=== PATIENT | male | born 1980 | race Two or more races ===

== ENCOUNTER 2017-03-17 19:18 | Inpatient (IN) | payer OTHER ==
--- NOTE | 2017-03-17 20:25 | PDOC ---
Rapid Medical Evaluation Chief Complaint: Pain Time Seen by Provider: 03/17/17 20:17 Medical Evaluation: Allergies Allergy/AdvReac Type Severity Reaction Status Date / Time No Known Allergies Allergy Verified 03/17/17 20:21 03/17/17 20:22 I have performed a brief-in person evaluation of this patient. The patient presents with a chief complaint of: right foot swelling/pain x3d pt states in kiswahili "he's supposed to be a diabetic but was never prescribed any DM meds. last physical x13 years ago Sent by PMD: Dr. Brijesh Mathew [phone] Cellulitis Accucheck in pmd's office was [phone] Pertinent physical exam findings: right foot +swelling +erythema decreased R.O.M. 2+pedal pulse I have ordered the following: CBC/CMP/UA/Duplex RLE The patient will proceed to the ED for further evaluation.
[2017-03-17] MEDS ORDERED: SODIUM CHLORIDE 1,000 ML IV STA (20:28)
--- NOTE | 2017-03-17 20:28 | PDOC ---
History of Present Illness - General Chief Complaint: Pain Stated Complaint: PCP SENT Time Seen by Provider: 03/17/17 20:17 History Source: Patient Exam Limitations: No Limitations - History of Present Illness Initial Comments: 03/17/17 20:27 36-year-old male with no known medical history because he hasn't been to a physician for 15 years. Patient states 15 years ago he was informed that he is a diabetic but was never given any medication or further instructions. Patient presents to the emergency department today complaining of right dorsal foot pain described as 8/10 sharp intermittent constant discomfort with subjective fever and chills 3 days without nausea/vomiting, chest pain, shortness of breath, extremity numbness or tingling sensation. Patient was seen at his family members PMD today and was informed to come to the emergency department for right foot cellulitis, possible gangrenous. Past History - Past Medical History Allergies/Adverse Reactions: Allergies Allergy/AdvReac Type Severity Reaction Status Date / Time No Known Allergies Allergy Verified 03/17/17 20:21 COPD: No - Suicide/Smoking/Psychosocial Hx Smoking History: Never smoked Have you smoked in the past 12 months: No Information on smoking cessation initiated: No Hx Alcohol Use: No Drug/Substance Use Hx: No Substance Use Type: None Review of Systems - Review of Systems Able to Perform ROS?: Yes Comments:: 03/17/17 22:11 CONSTITUTIONAL: Absent: fever, chills, diaphoresis, generalized weakness, malaise, loss of appetite HEENT: Absent: rhinorrhea, nasal congestion, throat pain, throat swelling, difficulty swallowing, mouth swelling, ear pain, eye pain, visual Changes CARDIOVASCULAR: Absent: chest pain, loss of consciousness, palpitations, irregular heart rate, peripheral edema RESPIRATORY: Absent: cough, shortness of breath, dyspnea with exertion, orthopnea, wheezing, stridor, hemoptysis GASTROINTESTINAL: Absent: abdominal pain, abdominal distension, nausea, vomiting, diarrhea, constipation, melena, hematochezia GENITOURINARY: Absent: dysuria, frequency, urgency, hesitancy, hematuria, flank pain, genital pain MUSCULOSKELETAL: Absent: myalgia, arthralgia, joint swelling SKIN: Absent: rash, itching, pallor HEMATOLOGIC/IMMUNOLOGIC: Absent: easy bleeding, easy bruising, lymphadenopathy, frequent infections ENDOCRINE: Absent: unexplained weight gain, unexplained weight loss, heat intolerance, cold intolerance NEUROLOGIC: Absent: headache, focal weakness or paresthesias, dizziness, unsteady gait, seizure, mental status changes, bladder or bowel incontinence PSYCHIATRIC: Absent: anxiety, depression, suicidal or homicidal ideation, hallucinations. Is the patient limited Slovak proficient: No *Physical Exam - Vital Signs Last Vital Signs Temp Pulse Resp BP Pulse Ox 98.0 F 111 H 18 117/74 97 03/17/17 20:22 03/17/17 20:22 03/17/17 20:22 03/17/17 20:22 03/17/17 20:22 - Physical Exam Comments: 03/17/17 22:11 GENERAL: Well developed, well nourished. Awake and alert. No acute distress. HEENT: Normocephalic, atraumatic. PERRLA, EOMI. No conjunctival pallor. Sclera are non- icteric. Moist mucous membranes. Oropharynx is clear. NECK: Supple. Full ROM. No JVD. Carotid pulses 2+ and symmetric, without bruits. No thyromegaly. No lymphadenopathy. CARDIOVASCULAR: Regular rate and rhythm. No murmurs, rubs, or gallops. Distal pulses are 2+ and symmetric. PULMONARY: No evidence of respiratory distress. Lungs clear to auscultation bilaterally. No wheezing, rales or rhonchi. ABDOMINAL: Soft. Non-tender. Non-distended. No rebound or guarding. No organomegaly. Normoactive bowel sounds. MUSCULOSKELETAL Normal range of motion at all joints. No bony deformities or tenderness. No CVA tenderness. EXTREMITIES: No cyanosis. No clubbing. No edema. No calf tenderness. SKIN: Warm and dry. Normal capillary refill. No rashes. No jaundice. NEUROLOGICAL: Alert, awake, appropriate. Cranial nerves 2-12 intact. No deficits to light touch and temperature in face, upper extremities and lower extremities. No motor deficits in the in face, upper extremities and lower extremities. Normoreflexic in the upper and lower extremities. Normal speech. Toes are down- going bilaterally. Gait is normal without ataxia. PSYCHIATRIC: Cooperative. Good eye contact. Appropriate mood and affect. ED Treatment Course - LABORATORY CBC & Chemistry Diagram: 03/17/17 19:25 03/17/17 19:25 - RADIOLOGY Radiology Studies Ordered: Category Date Time Status DUPLEX VASCUL US-1 LEG [US] Stat Ultrasound 03/17/17 20:25 Ordered Radiograph Interpretation: 03/17/17 20:28 Duplex RLE: Neg DVT *DC/Admit/Observation/Transfer Diagnosis at time of Disposition: Cellulitis of foot, right, Gangrene of right foot - Discharge Dispostion Condition at time of disposition: Guarded Admit: Yes - Referrals - Patient Instructions - Post Discharge Activity Progress Note - Progress Note Progress Note: 2213hrs: Called Dr. Almeida/Infectious Disease. Dr. Kendall covering [phone] 2214hrs: Called Dr. Ernesto Sosa/Vascular [phone] 2238hrsS; Spoke to Dr. Kendall/ [place] Vancomycin/Zosyn iv 2305hrs: 2nd call Dr. Rj Sosa/vascular 2346hrs; 3rd call to Dr. Rj Sosa/vascular [phone] 2355hrs: Microblogged hospitalist 2359hrs: Spok eot Dr. Foster/hospitalist. will admit to med/surg
[2017-03-17 20:44] LABS: BASO % 1.5 % (0-2.0); HEMATOCRIT 40.3 % (35.4-49); HEMOGLOBIN 13.6 GM/dL (11.7-16.9); LYMPH % 9.4 % (8-40); MCH 30.3 pg (25.7-33.7); MCHC 33.7 g/dl (32.0-35.9); MEAN CELL VOLUME 89.8 fl (80-96); MEAN PLT VOLUME 9.4 fl (7.5-11.1); MONO % 6.5 % (3.8-10.2); NEUT % 82.6 % (42.8-82.8); PLATELET COUNT 291 K/MM3 (134-434); RBC 4.49 M/mm3 (4.00-5.60); RDW 12.7 % (11.9-15.9); WHITE BLOOD COUNT 20.9 K/mm3 (4.0-10.0)
[2017-03-17 20:48] LABS: URINE APPEARANCE SLCLOUDY; URINE BILIRUBIN NEGATIVE (NEGATIVE); URINE BLOOD 1+ (NEGATIVE); URINE COLOR LTYELLOW; URINE GLUCOSE (UA) 3+ (NEGATIVE); URINE KETONE 1+ (NEGATIVE); URINE LEUK ESTERASE NEGATIVE (NEGATIVE); URINE NITRITE NEGATIVE (NEGATIVE); URINE UROBILINOGEN NEGATIVE mg/dL (0.2-1.0)
[2017-03-17 21:03] LABS: ALBUMIN 2.7 g/dl (3.4-5.0); ANION GAP 10 (8-16); BILIRUBIN,TOTAL 0.9 mg/dL (0.2-1.0); BLOOD UREA NITROGEN 15 mg/dL (7-18); CALCIUM 8.7 mg/dL (8.5-10.1); CHLORIDE 96 mmol/L (98-107); CO2 23 mmol/L (21-32); CREATININE 0.7 mg/dL (0.7-1.3); POTASSIUM 4.4 mmol/L (3.5-5.1); SGOT/AST 15 U/L (15-37); SGPT/ALT 22 U/L (12-78); SODIUM 129 mmol/L (136-145)
[2017-03-17 21:04] LABS: ALK PHOS 107 U/L (45-117); TOT PROT 7.6 g/dl (6.4-8.2)
[2017-03-17 21:07] LABS: GLUCOSE,RANDOM 324 mg/dL (74-106)
[2017-03-17 21:45] LABS: URINE PROTEIN 2+ (NEGATIVE)
--- NOTE | 2017-03-17 21:47 | PDOC ---
*Physical Exam - Vital Signs Last Vital Signs Temp Pulse Resp BP Pulse Ox 98.0 F 111 H 18 117/74 97 03/17/17 20:22 03/17/17 20:22 03/17/17 20:22 03/17/17 20:22 03/17/17 20:22 ED Treatment Course - LABORATORY CBC & Chemistry Diagram: 03/18/17 06:35 03/18/17 06:35 - ADDITIONAL ORDERS Additional order review: Laboratory Results 03/17/17 03/17/17 19:25 19:25 Sodium 129 L Potassium 4.4 Chloride 96 L Carbon Dioxide 23 Anion Gap 10 BUN 15 Creatinine 0.7 Creat Clearance w eGFR > 60 Random Glucose 324 H* Calcium 8.7 Total Bilirubin 0.9 AST 15 ALT 22 Alkaline Phosphatase 107 Total Protein 7.6 Albumin 2.7 L Urine Color Ltyellow Urine Appearance Slcloudy Urine pH 5.0 Ur Specific [place] 1.033 Urine Protein 2+ H Urine Glucose (UA) 3+ H Urine Ketones 1+ H Urine Blood 1+ H Urine Nitrite Negative Urine Bilirubin Negative Urine Urobilinogen Negative 03/17/17 19:25 RBC 4.49 MCV 89.8 MCHC 33.7 RDW 12.7 MPV 9.4 Neutrophils % 82.6 Lymphocytes % 9.4 Monocytes % 6.5 Eosinophils % 0.0 Basophils % 1.5 Medical Decision Making - Medical Decision Making 03/17/17 21:47 agree with care from SASCHA Dorman *DC/Admit/Observation/Transfer Diagnosis at time of Disposition: Cellulitis of foot, right, Gangrene of right foot - Discharge Dispostion Condition at time of disposition: Guarded - Referrals - Patient Instructions - Post Discharge Activity
[2017-03-17 22:34] LABS: EPI CELLS RARE /HPF (FEW)
[2017-03-17] MEDS ORDERED: VANCOMYCIN 1,000 MG in DEXTROSE 5%-WATER - 250 ML IVPB ONE (22:40)
[2017-03-17] MEDS ORDERED: PIPERACILLIN/TAZOB 4.5 GM/100 ML PRE-DOCKED IVPB ONE (22:40)
[2017-03-17] MEDS ORDERED: PIPERACILLIN/TAZOB 4.5 GM 4.5 GM/100 ML BAG IVPB ONE (22:55)
[2017-03-17] MEDS ORDERED: INSULIN REGULAR HUMAN 100 UNITS/ML *VIAL IVPUSH ONE (23:59)
--- NOTE | 2017-03-18 00:15 | PN ---
Teaching Attending Note Name of Resident: Raz Jacob ATTENDING PHYSICIAN STATEMENT I saw and evaluated the patient. I reviewed the resident's note and discussed the case with the resident. I agree with the resident's findings and plan as documented. SUBJECTIVE: 36 M with unknown pmhx due to him not seeing a physician in 15 years. who presents with Right foot pain X3 days duration. States that he may have been diagnosed with DM when he was 16, but has never been on insulin. Denies any fevers, chills, chest pain or pressure. No N/V/D. OBJECTIVE: Physical: VS: Vital Signs Period Temp Pulse Resp BP Sys/Cedillo Pulse Ox Last 24 Hr 98.0 F 111 18 117/74 97 GEN: NAD, resting in bed, AA0X3 HEENT: NCAT, PERRL, throat without erythema or exudates CARD: RRR S1, S2 RESP: CTAB ABD: BSx4, NTD to palpation EXT: R. Foot - warm, pulses intact +2/4, ulceration between 4rth and 5th digit, with surrounding erythema. LLE Pulses +2/4 - C/C/E CBCD WBC 20.9 K/mm3 (4.0-10.0) H 03/17/17 19:25 RBC 4.49 M/mm3 (4.00-5.60) 03/17/17 19:25 Hgb 13.6 GM/dL (11.7-16.9) 03/17/17 19:25 Hct 40.3 % (35.4-49) 03/17/17 19:25 MCV 89.8 fl (80-96) 03/17/17 19:25 MCHC 33.7 g/dl (32.0-35.9) 03/17/17 19:25 RDW 12.7 % (11.9-15.9) 03/17/17 19:25 Plt Count 291 K/MM3 (134-434) 03/17/17 19:25 MPV 9.4 fl (7.5-11.1) 03/17/17 19:25 CMP Sodium 129 mmol/L (136-145) L 03/17/17 19:25 Potassium 4.4 mmol/L (3.5-5.1) 03/17/17 19:25 Chloride 96 mmol/L (98-107) L 03/17/17 19:25 Carbon Dioxide 23 mmol/L (21-32) 03/17/17 19:25 Anion Gap 10 (8-16) 03/17/17 19:25 BUN 15 mg/dL (7-18) 03/17/17 19:25 Creatinine 0.7 mg/dL (0.7-1.3) 03/17/17 19:25 Creat Clearance w eGFR > 60 (>60) 03/17/17 19:25 Random Glucose 324 mg/dL (74-106) H* 03/17/17 19:25 Calcium 8.7 mg/dL (8.5-10.1) 03/17/17 19:25 Total Bilirubin 0.9 mg/dL (0.2-1.0) 03/17/17 19:25 AST 15 U/L (15-37) 03/17/17 19:25 ALT 22 U/L (12-78) 03/17/17 19:25 Alkaline Phosphatase 107 U/L (45-117) 03/17/17 19:25 Total Protein 7.6 g/dl (6.4-8.2) 03/17/17 19:25 Albumin 2.7 g/dl (3.4-5.0) L 03/17/17 19:25 Foot Xray- Pending Duplex-VASC- R. Foot with No DVT Duplex Art- Pending ASSESSMENT AND PLAN: 36 w Dm, who presents with R. Foot ulceration, erythema, pain and edema found to be septic and to have R. foot gangrene 1.) Sepsis - Due to Cellulitis, R. Foot gangrene, RO Osteo - Stat LA - Vanco/Zosyn - ID consult - Art. Duplex - IVF - Vasc. consult - Type and Screen - Coags - ESR, CRP - R. Foot Xray - [place] cx 2.) Uncontrolled DM - FS - RAISS - HgBA1C 3.) Hyponatremia - Corrected to 133- Mild - NS, do not inc. 0.5meq per hr 4.) Dvt Ppx - Heparin [address] in Med-Sx
--- NOTE | 2017-03-18 00:59 | HP ---
CHIEF COMPLAINT: R foot pain/swelling PCP: none HISTORY OF PRESENT ILLNESS: 36 yo man w/ no pmh only significant for R foot fungal infection for past month presents with 3 days of worsening R foot swelling/pain, in addition to subjective fevers/chills, advised to come to ED today by family PCP for suspected cellulitis of R foot. Pt has not been seen by PMD for over 15 years, denies any hx of cellulitis or infections in the past and has never been hospitalized. Pt endorses worsening fungal infection on dorsum of R foot for one month, with interdigital ulcer between the 4th and 5th digit. Over the past 3 days, pt endorses worsening edema and rubor of R dorsal surface of foot and denies any lacerations, king or other lesions to the area apart from local fungal infection. Pt endorses mild subjective fever/chills, as well as decreased appetite. Denies any PLAZA, cough, SOB, CP, N/V, diarrhea, dysuria, other rashes or new neurologic deficits. Denies any sick contacts, recent travel or IVDU. ER course was notable for: (1)WBC 20, afebrile (2)Glucose 324 (3)Given one dose of vanc/zosyn Recent Travel: None PAST MEDICAL HISTORY: ?Diabetes R foot fungal infection - one month duration PAST SURGICAL HISTORY: None Social History: Smoking: No Alcohol: No Drugs: No Family History: Noncontributory Allergies No Known Allergies Allergy (Verified 03/17/17 20:21) HOME MEDICATIONS: REVIEW OF SYSTEMS CONSTITUTIONAL: fever, chills, loss of appetite, Absent: diaphoresis, generalized weakness, malaise, weight change HEENT: Absent: rhinorrhea, nasal congestion, throat pain, throat swelling, difficulty swallowing, mouth swelling, ear pain, eye pain, visual changes CARDIOVASCULAR: Absent: chest pain, syncope, palpitations, irregular heart rate, lightheadedness , peripheral edema RESPIRATORY: Absent: cough, shortness of breath, dyspnea with exertion, orthopnea, wheezing, stridor, hemoptysis GASTROINTESTINAL: Absent: abdominal pain, abdominal distension, nausea, vomiting, diarrhea, constipation, melena, hematochezia GENITOURINARY: Absent: dysuria, frequency, urgency, hesitancy, hematuria, flank pain, genital pain MUSCULOSKELETAL: Absent: myalgia, arthralgia, joint swelling, back pain, neck pain SKIN: R foot swelling/pain Absent: rash, itching, pallor HEMATOLOGIC/IMMUNOLOGIC: Absent: easy bleeding, easy bruising, lymphadenopathy, frequent infections ENDOCRINE: Absent: unexplained weight gain, unexplained weight loss, heat intolerance, cold intolerance NEUROLOGIC: Absent: headache, focal weakness or paresthesias, dizziness, unsteady gait, seizure, mental status changes, bladder or bowel incontinence PSYCHIATRIC: Absent: anxiety, depression, suicidal or homicidal ideation, hallucinations. PHYSICAL EXAMINATION Vital Signs - 24 hr 03/17/17 20:22 Temperature 98.0 F Pulse Rate 111 H Respiratory 18 Rate Blood Pressure 117/74 O2 Sat by Pulse 97 Oximetry (%) GENERAL: Awake, alert, and fully oriented, in no acute distress. HEAD: Normal with no signs of trauma. EYES: Pupils equal, round and reactive to light, extraocular movements intact, sclera anicteric, conjunctiva clear. No lid lag. EARS, NOSE, THROAT: Ears normal, nares patent, oropharynx clear without exudates. Moist mucous membranes. NECK: Normal range of motion, supple without lymphadenopathy, JVD, or masses. LUNGS: Breath sounds equal, clear to auscultation bilaterally. No wheezes, and no crackles. No accessory muscle use. HEART: Regular rate and rhythm, normal S1 and S2 without murmur, rub or gallop. ABDOMEN: Soft, nontender, not distended, normoactive bowel sounds, no guarding, no rebound, no masses. No hepatomegaly or splenomegaly. MUSCULOSKELETAL: Normal range of motion at all joints. No bony deformities or tenderness. No CVA tenderness. UPPER EXTREMITIES: 2+ pulses, warm, well-perfused. No cyanosis. No clubbing. No peripheral edema. LOWER EXTREMITIES: R dorsal surface of foot with erythema/swelling with no lacerations; dorsal fungal infection on anterior forefoot and involving the interdigital space between the 4th and 5th digit. Brown, foul-smelling ulcer noted in digital groove between 4th and 5th digit, with no drainage or purulence noted. Erythematous pach not notably hot to touch or overtly painful. Multiple BL anterior scars noted on distal extremities. 2+ DP, PT pulses, warm, well-perfused. No calf tenderness. NEUROLOGICAL: Cranial nerves II-XII intact. Normal speech. Gait not evaluated PSYCHIATRIC: Cooperative. Good eye contact. Appropriate mood and affect. Laboratory Results - last 24 hr CBC, BMP 03/17/17 19:25 03/17/17 19:25 03/17/17 03/17/17 03/17/17 19:25 19:25 19:25 WBC 20.9 H RBC 4.49 Hgb 13.6 Hct 40.3 MCV 89.8 MCH 30.3 MCHC 33.7 RDW 12.7 Plt Count 291 MPV 9.4 Neutrophils % 82.6 Lymphocytes % 9.4 Monocytes % 6.5 Eosinophils % 0.0 Basophils % 1.5 Sodium 129 L Potassium 4.4 Chloride 96 L Carbon Dioxide 23 Anion Gap 10 BUN 15 Creatinine 0.7 Creat Clearance w eGFR > 60 Random Glucose 324 H* Calcium 8.7 Total Bilirubin 0.9 AST 15 ALT 22 Alkaline Phosphatase 107 Total Protein 7.6 Albumin 2.7 L Urine Color Ltyellow Urine Appearance Slcloudy Urine pH 5.0 Ur Specific [place] 1.033 Urine Protein 2+ H Urine Glucose (UA) 3+ H Urine Ketones 1+ H Urine Blood 1+ H Urine Nitrite Negative Urine Bilirubin Negative Urine Urobilinogen Negative Ur Leukocyte Esterase Negative Urine WBC (Auto) 3 Urine RBC (Auto) 6 Ur Epithelial Cells Rare Venous duplex LE - Negative for DVTs Arterial duplex LE - Read pending R foot XR - Read pending CXR - No pathology noted ASSESSMENT/PLAN: 36 yo man w/ no pmh only significant for R foot fungal infection for past month presents with 3 days of worsening R foot swelling/pain, in addition to subjective fevers/chills, advised to come to ED today by family PCP for suspected cellulitis of R foot. #R foot cellulitis/fungal infection/gangrene - WBC ~20K, subjective fever/chills , R foot erythema/swelling w/ ulcer - ID consulted, recs appreciated - venous duplex neg for dvt - arterial duplex, R foot XR pending - Trend lactate - CRP, ESR - Coags - Type and screen - Trend fever, WBC - Received one dose vanc/zosyn in ED. Ordered for additional dose zosyn in AM. Abx pending ID recs - F/u blood cultures - Wound culture - Vascular consulted, recs appreciated - Vitals q4h, monitor for signs of infection, hypotension #Hyperglycemia/Hx of diabetes Dx - A1C - Insulin sliding scale, BGM q4h - Will likely require referral to PMD for outpt f/u #Hyponatremia - Corrected to 133 - f/u AM BMP - NS 75cc/hr #PPX SubQ heparin TID #FEN NS 75cc/hr Daily BMPs, trend Na Diabetic diet Plan discussed with attending, Dr. Cristian Jacob, PGY1 Visit type - Emergency Visit Emergency Visit: Yes ED Registration Date: 03/18/17 Care time: The patient presented to the Emergency Department on the above date and was hospitalized for further evaluation of their emergent condition. - New Patient This patient is new to me today: Yes Date on this admission: 03/18/17 - Critical Care Critical Care patient: No
[2017-03-18] MEDS ORDERED: SODIUM CHLORIDE 1,000 ML IV SCH (01:30)
[2017-03-18] MEDS ORDERED: INSULIN REGULAR HUMAN 100 UNITS/ML *VIAL ONE (02:12)
[2017-03-18] MEDS ORDERED: VANCOMYCIN 1 GRAM (PRE-DOCKED) 1,000 MG/250 ML BAG IVPB ONE (02:12)
[2017-03-18 05:14] VITALS: BMI 27.3
[2017-03-18] MEDS: HEPARIN NA (PORCINE) 5,000 UNITS/ML 1ML VIAL SQ SCH ×3 (06:24→22:14)
[2017-03-18] MEDS: INSULIN SLIDING SCALE (NOVOLOG) 1 VIAL SQ SCH ×4 (06:24→22:15)
[2017-03-18] MEDS ORDERED: PIPERACILLIN/TAZOB 4.5 GM/100 ML PREMIX BAG IVPB ONE (07:00)
--- NOTE | 2017-03-18 08:25 | PN ---
Physical Exam: SUBJECTIVE: 36yo M with no PMH who presented with right foot edema, erythema, and slight chills found to have a R food cellulitis with possible osteomyelitis. Currently , pt reports only pain in his R foot that is tolerable with his pain regiment. Pt states that the opening on the plantar aspect of his R first toe first started 3 days ago, however he has had the fungal infection for the past month without any real treatment. 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 Denies fever/chills, n/v/d/c, tingling in his R foot or coldness. OBJECTIVE: Vital Signs Period Temp Pulse Resp BP Sys/Cedillo Pulse Ox Last 24 Hr 98.0 F-98.6 F 102-111 18-20 110-126/64-75 97-98 GENERAL: NAD, awake, alert, and fully oriented HEENT: EOMI, DARLINE, sclera anicteric, moist mucosa LUNGS: CTA bilaterally, no wheezes, rhonchi, rales. No accessory muscle use. HEART: Tachycardic with normal rhythm, S1, S2 without murmur ABDOMEN: Soft, nontender, nondistended, normoactive bowel sounds, no guarding, no hepatomegaly EXTREMITIES: R foot wrapped with clean bandage, erythematous and edematous on dorsum of foot up to ankle, slight opening between 1st and 2nd R toes with some depth, fungal areas noted on toes and dorsum of toes, 2+ DP pulses, warm, cap refill <2sec, ROM with feet and toes intact without limitations bilaterally NEUROLOGICAL: Cranial nerves II through XII grossly intact. Normal speech, gait not observed. PSYCH: Normal mood, normal affect. SKIN: Warm, dry, no rashes, see extremity exam Laboratory Results - last 24 hr 03/17/17 03/17/17 03/17/17 19:25 19:25 19:25 WBC 20.9 H RBC 4.49 Hgb 13.6 Hct 40.3 MCV 89.8 MCH 30.3 MCHC 33.7 RDW 12.7 Plt Count 291 MPV 9.4 Neutrophils % 82.6 Lymphocytes % 9.4 Monocytes % 6.5 Eosinophils % 0.0 Basophils % 1.5 ESR Sodium 129 L Potassium 4.4 Chloride 96 L Carbon Dioxide 23 Anion Gap 10 BUN 15 Creatinine 0.7 Creat Clearance w eGFR > 60 POC Glucometer Random Glucose 324 H* Lactic Acid Calcium 8.7 Total Bilirubin 0.9 AST 15 ALT 22 Alkaline Phosphatase 107 C-Reactive Protein Total Protein 7.6 Albumin 2.7 L Urine Color Ltyellow Urine Appearance Slcloudy Urine pH 5.0 Ur Specific [place] 1.033 Urine Protein 2+ H Urine Glucose (UA) 3+ H Urine Ketones 1+ H Urine Blood 1+ H Urine Nitrite Negative Urine Bilirubin Negative Urine Urobilinogen Negative Ur Leukocyte Esterase Negative Urine WBC (Auto) 3 Urine RBC (Auto) 6 Ur Epithelial Cells Rare 03/18/17 03/18/17 03/18/17 02:29 02:30 02:30 WBC RBC Hgb Hct MCV MCH MCHC RDW Plt Count MPV Neutrophils % Lymphocytes % Monocytes % Eosinophils % Basophils % ESR 120 H Sodium Potassium Chloride Carbon Dioxide Anion Gap BUN Creatinine Creat Clearance w eGFR POC Glucometer [phone] Random Glucose Lactic Acid 1.0 Calcium Total Bilirubin AST ALT Alkaline Phosphatase C-Reactive Protein Total Protein Albumin Urine Color Urine Appearance Urine pH Ur Specific [place] Urine Protein Urine Glucose (UA) Urine Ketones Urine Blood Urine Nitrite Urine Bilirubin Urine Urobilinogen Ur Leukocyte Esterase Urine WBC (Auto) Urine RBC (Auto) Ur Epithelial Cells 03/18/17 03/18/17 02:30 06:23 WBC RBC Hgb Hct MCV MCH MCHC RDW Plt Count MPV Neutrophils % Lymphocytes % Monocytes % Eosinophils % Basophils % ESR Sodium Potassium Chloride Carbon Dioxide Anion Gap BUN Creatinine Creat Clearance w eGFR POC Glucometer 201 Random Glucose Lactic Acid Calcium Total Bilirubin AST ALT Alkaline Phosphatase C-Reactive Protein 28.3 H Total Protein Albumin Urine Color Urine Appearance Urine pH Ur Specific [place] Urine Protein Urine Glucose (UA) Urine Ketones Urine Blood Urine Nitrite Urine Bilirubin Urine Urobilinogen Ur Leukocyte Esterase Urine WBC (Auto) Urine RBC (Auto) Ur Epithelial Cells Active Medications Generic Name Dose Route Start Last Admin Trade Name Freq PRN Reason Stop Dose Admin Heparin Sodium (Porcine) 5,000 unit 03/18/17 06:00 03/18/17 06:24 Heparin - SQ 5,000 unit TID JERMAINE Administration Sodium Chloride 1,000 mls @ 100 mls/hr 03/18/17 07:46 Normal Saline - IV ASDIR JERMAINE Insulin Aspart 1 vial 03/18/17 07:00 03/18/17 06:24 Novolog Vial Sliding Scale - SQ 4 unit ACHS JERMAINE Administration Protocol ASSESSMENT/PLAN: 36yo M with no history found to have R foot cellulitis, fungal infection, and suspected osteomyelitis 1) R Foot cellulitis --2/2 to fungal infection opportunity --R/O osteomyelitis due to depth of opening --Vascular/Wound care on board --Podiatry also consulted --MR of R foot ordered --Santyl for wound care --ID on case --Rec: Rocephin and clindamycin 2) DM --A1C 12.6 --BGM ACHS --Diabetic diet --ISS --Levemir 5 HS to be started today --[employer] Manager counselling prior to discharge necessary FEN: Fluids: NS@100cc/hr Electrolyte Abnormalities: Hyponatremia (improving; cont. to trend) Nutrition: Diabetic diet PPX: DVt - Heparin 5000U SQ TID Dispo: Continue antibiotics; MR of R foot marinaight Case discussed with Dr. Aguiar and Dr. Ian Lopes, DO - Internal Medicine PGY-1 Visit type - Emergency Visit Emergency Visit: No - New Patient This patient is new to me today: Yes Date on this admission: 03/18/17 - Critical Care Critical Care patient: No
[2017-03-18] MEDS: SODIUM CHLORIDE 1,000 ML IV SCH ×2 (08:29→18:27)
[2017-03-18 10:10] LABS: BASO % 0.3 % (0-2.0); EOS % 0.1 % (0-4.5); HEMATOCRIT 37.6 % (35.4-49); HEMOGLOBIN 12.3 GM/dL (11.7-16.9); LYMPH % 10.5 % (8-40); MCH 29.9 pg (25.7-33.7); MCHC 32.6 g/dl (32.0-35.9); MEAN CELL VOLUME 91.7 fl (80-96); MEAN PLT VOLUME 9.7 fl (7.5-11.1); MONO % 7.3 % (3.8-10.2); NEUT % 81.8 % (42.8-82.8); PLATELET COUNT 272 K/MM3 (134-434); RDW 12.3 % (11.9-15.9); WHITE BLOOD COUNT 17.8 K/mm3 (4.0-10.0)
[2017-03-18 10:25] LABS: ANION GAP 9 (8-16); BLOOD UREA NITROGEN 11 mg/dL (7-18); CALCIUM 7.7 mg/dL (8.5-10.1); CHLORIDE 100 mmol/L (98-107); CO2 22 mmol/L (21-32); CREATININE 0.5 mg/dL (0.7-1.3); GLUCOSE,RANDOM 196 mg/dL (74-106); POTASSIUM 3.8 mmol/L (3.5-5.1); SODIUM 131 mmol/L (136-145)
--- NOTE | 2017-03-18 10:26 | CONSULT ---
- Consultation REQUESTING PROVIDER: Dr. Sosa CONSULT REQUEST: We have been asked to surgically evaluate this patient for right foot infection. PCP:Kristel Aguiar HISTORY OF PRESENT ILLNESS: The patient is a 36 yo male who presents with an infected foot since Wednesday. He noted it to be painful and red. He denies any fever or chills. He was told at a younger age that his sugars were elevated but had no follow up for treatment. The patient denies any history of chronic infections. Quit smoking 15 years ago. PMHx: denies PSHx: denies Allergies Allergy/AdvReac Type Severity Reaction Status Date / Time No Known Allergies Allergy Verified 03/17/17 20:21 REVIEW OF SYSTEMS: CONSTITUTIONAL: Absent: fever, chills CARDIOVASCULAR: Absent: chest pain, palpitations RESPIRATORY: Absent: cough, shortness of breath GASTROINTESTINAL: Absent: abdominal pain, abdominal distension UROLOGICAL: Absent: dysuria, frequency MUSCULOSKELETAL: Absent: myalgia, arthralgia, joint swelling SKIN: present: redness to foot/no drainage HEMATOLOGIC/IMMUNOLOGIC: Absent: easy bleeding, easy bruising, lymphadenopathy NEUROLOGIC: Absent: headache, seizures PHYSICAL EXAM: GENERAL: Awake, alert, and fully oriented, in no acute distress. HEAD: Normal with no signs of trauma. EYES: sclera anicteric, conjunctiva clear. NECK: Normal ROM, supple without lymphadenopathy LUNGS: Clear to auscultation bilat anteriorly. No wheezes, and no crackles. No accessory muscle use. HEART: Regular rate, tachycarddic ABDOMEN: Soft, nontender, not distendedy. MUSCULOSKELETAL: Normal ROM at all joints. No bony deformities or tenderness. No CVA tenderness. UPPER EXTREMITIES: 2+ pulses, warm, well-perfused. No cyanosis. Cap refill <2 seconds. No peripheral edema. LOWER EXTREMITIES: LLE: +2 DP/PT pulse. RLE: +1DP/PT, edema with erythema to ankle on the dorsal aspect. Fissure between 4th and 5th toe with infectious process at base of 4th and entire 5th digit. No plantar surface edema/erythema or bogginess. NEUROLOGICAL: Normal speech. PSYCH: Cooperative. Good eye contact. Appropriate mood and affect. SKIN: Warm, dry, normal turgor, no rashes or lesions noted. Vital Signs Temperature 98.4 F 03/18/17 06:46 Pulse Rate 102 H 03/18/17 06:46 Respiratory Rate 20 03/18/17 06:46 Blood Pressure 126/64 03/18/17 06:46 O2 Sat by Pulse Oximetry (%) 98 03/18/17 05:00 Lab Results WBC 17.8 K/mm3 (4.0-10.0) H 03/18/17 06:35 RBC 4.10 M/mm3 (4.00-5.60) 03/18/17 06:35 Hgb 12.3 GM/dL (11.7-16.9) 03/18/17 06:35 Hct 37.6 % (35.4-49) 03/18/17 06:35 MCV 91.7 fl (80-96) 03/18/17 06:35 MCHC 32.6 g/dl (32.0-35.9) 03/18/17 06:35 RDW 12.3 % (11.9-15.9) 03/18/17 06:35 Plt Count 272 K/MM3 (134-434) 03/18/17 06:35 Sodium 129 mmol/L (136-145) L 03/17/17 19:25 Potassium 4.4 mmol/L (3.5-5.1) 03/17/17 19:25 Chloride 96 mmol/L (98-107) L 03/17/17 19:25 Carbon Dioxide 23 mmol/L (21-32) 03/17/17 19:25 Anion Gap 10 (8-16) 03/17/17 19:25 BUN 15 mg/dL (7-18) 03/17/17 19:25 Creatinine 0.7 mg/dL (0.7-1.3) 03/17/17 19:25 Random Glucose 324 mg/dL (74-106) H* 03/17/17 19:25 Calcium 8.7 mg/dL (8.5-10.1) 03/17/17 19:25 Blood Type O POSITIVE 03/18/17 06:00 Antibody Screen Negative 03/18/17 06:00 Right foot xray: dorsal aspect with some gas at toe base. A/P: 36 yo male with elevated sugar/right foot infection with gas on xray Plan for possible drainage today Continue npo/ivf IV vanco/zosyn IV hydration Pt seen with Dr. Sosa and will treat with IV abx, local wound care and MRI ordered. No obvious/fluctuant area to drain and no drainage from the wound Visit type - Case Type Case Type: ED Admission - Emergency Emergency Visit: Yes ED Registration Date: 03/18/17 Care time: The patient presented to the Emergency Department on the above date and was hospitalized for further evaluation of their emergent condition. - New patient This patient is new to me today: Yes Date on this admission: 03/18/17
--- NOTE | 2017-03-18 10:55 | PN ---
Progress Note (short form) - Note Progress Note: ID 36 year old male from [place] the [place] with his for many years presents with pain swelling redness of the right foot. Xray shows air in the area of the 4th metatarsal. No fever chills He is diabetic but says he has not taken care of his Diabetes Selected Entries 03/18/17 06:46 Temperature 98.4 F Pulse Rate 102 H Respiratory 20 Rate Blood Pressure 126/64 Lung Clear Cor S1 S2 RR no murmur Abd Soft nontender Ext Swelling and redness to ankle edema of the ventral foot ulcer between the 4th 5th toe NO crepitance felt Microbiology Laboratory Tests 03/17/17 03/18/17 03/18/17 19:25 02:30 02:30 WBC 20.9 H Hgb 13.6 Plt Count 291 ESR 120 H BUN Creatinine Random Glucose Hemoglobin A1c % 12.6 H C-Reactive Protein 03/18/17 03/18/17 02:30 06:35 WBC Hgb Plt Count ESR BUN 11 D Creatinine 0.5 L D Random Glucose 196 H D Hemoglobin A1c % C-Reactive Protein 28.3 H Assessment Diabetic SSTT cellultis with air ?abscess Plan Clindaymcin and Ceftriaxone HIV testing Discussed with PA regarding need for surgical evaluation for drainage Problem List - Problems (1) Cellulitis of foot, right Code(s): L03.115 - CELLULITIS OF RIGHT LOWER LIMB (2) Diabetes Code(s): E11.9 - TYPE 2 DIABETES MELLITUS WITHOUT COMPLICATIONS
[2017-03-18] MEDS ORDERED: CEFTRIAXONE 2 GM in DEXTROSE 5%-WATER - 100 ML IVPB SCH (12:00)
[2017-03-18] MEDS: CLINDAMYCIN 600MG PREMIX IVPB 600 MG/50 ML BAG IVPB SCH ×3 (12:10→21:30)
[2017-03-18] MEDS ORDERED: INSULIN (NOVOLOG) ASPART 100 UNITS/ML 10ML VIAL ONE (12:52)
--- NOTE | 2017-03-18 13:04 | EKG ---
Test Reason : Blood Pressure : / mmHG Vent. Rate : 104 BPM Atrial Rate : 104 BPM P-R Int : 148 ms QRS Dur : 086 ms QT Int : 348 ms P-R-T Axes : 045 005 051 degrees QTc Int : 457 ms SINUS TACHYCARDIA OTHERWISE NORMAL ECG NO PREVIOUS ECGS AVAILABLE Confirmed by SVETLANA WOODARD MD ([id number]) on 03/18/2017 1:04:49 PM Referred By: Confirmed By:SVETLANA WOODARD MD
--- NOTE | 2017-03-18 15:07 | PN ---
Teaching Attending Note Name of Resident: Edu Lopes ATTENDING PHYSICIAN STATEMENT I saw and evaluated the patient. I reviewed the resident's note and discussed the case with the resident. I agree with the resident's findings and plan as documented. SUBJECTIVE:c/o pain in his foot. improves with pain medication. denies Cp, SOB, fever, chills. OBJECTIVE: Last Vital Signs Temp Pulse Resp BP Pulse Ox 99.5 F 101 H 18 132/72 98 03/18/17 10:00 03/18/17 10:00 03/18/17 10:00 03/18/17 10:00 03/18/17 05:00 General NAD CV S1 S2 RRR no murmur/rub/gallop Lungs CTA B/L no wheezing/rales/rhonchi Extremities R foot ulcer in between 4th and 5th digit appears to be deep. no active drainage. no crepitance, pulses intact ASSESSMENT AND PLAN: 36yo M with PMH DM (not on medications) presented to the ER with R foot ulcer 1. Sepsis due to R foot ulcer- concern for OM due to how deep lesion is. XR negative for OM however ESR/CRP elevated. will obtain MRI to evaluate. On clindamycin and ceftriaxone day 2. cont pain control. ID, vascular and podiatr on board. 2. DM- A1c 12. pt was diagnosed 13 years ago but never took medications. counselled on risks assoc with uncotnrolled DM and early . dietary consult. start levemir 5 units tongiht. iss, bgm. teaching by RN on bgm and how to administer insulin 3. DVT ppx- hep sq
--- NOTE | 2017-03-18 15:52 | PN ---
Progress Note (short form) - Note Progress Note: Vascular surgery Pt seen and examined. Right foot with palpable DP and PT pulses. HOwever foot has erythema on the dorsum Between the 4th and 5th interspace there is a ulcer. IV antibiotics as per ID MRI of right foot. Dr. Castaneda to follow pt . No need for any surgery right now. Radha Sosa DO
[2017-03-18] MEDS ORDERED: INSULIN DETEMIR 100 UNITS/ML MDV SQ SCH (22:00)
[2017-03-19] MEDS: CLINDAMYCIN 600MG PREMIX IVPB 600 MG/50 ML BAG IVPB SCH ×4 (02:09→22:05)
[2017-03-19] MEDS: SODIUM CHLORIDE 1,000 ML IV SCH (05:30)
[2017-03-19] MEDS: INSULIN SLIDING SCALE (NOVOLOG) 1 VIAL SQ SCH ×4 (06:00→22:37)
[2017-03-19] MEDS: HEPARIN NA (PORCINE) 5,000 UNITS/ML 1ML VIAL SQ SCH ×3 (06:01→22:34)
[2017-03-19 07:46] LABS: BASO % 0.3 % (0-2.0); EOS % 0.7 % (0-4.5); HEMATOCRIT 36.1 % (35.4-49); HEMOGLOBIN 11.9 GM/dL (11.7-16.9); LYMPH % 12.1 % (8-40); MCH 29.9 pg (25.7-33.7); MCHC 32.9 g/dl (32.0-35.9); MEAN CELL VOLUME 90.7 fl (80-96); MEAN PLT VOLUME 9.2 fl (7.5-11.1); MONO % 7.6 % (3.8-10.2); NEUT % 79.3 % (42.8-82.8); PLATELET COUNT 298 K/MM3 (134-434); RBC 3.98 M/mm3 (4.00-5.60); RDW 12.5 % (11.9-15.9); WHITE BLOOD COUNT 13.3 K/mm3 (4.0-10.0)
[2017-03-19 07:57] LABS: INR 1.14 (0.82-1.09); PROTHROMBIN TIME (PATIENT) 12.9 SEC (9.98-11.88)
--- NOTE | 2017-03-19 08:13 | CONSULT ---
Consult - text type - Consultation Consultation Note: Podiatry Consultation: Pleasant 36 year old DM M presents with R foot infection since Wednesday. Patient notes the infection started as "fungus" between 4th/5th toes with increased redness/pain/swelling to the foot. Denies subjective fevers/chills at home. Uncontrolled diabetic, he was told over 10 years ago he had increased blood sugars but never pursued treatment. Has had low grade temps in house, currently afebrile with tachycardia. PMHx: Diabetes Meds: noted ALL: NKMA OBED: R foot: pedal pulses palpable, TG warm-warmer R foot, CFT delayed to 4th/5th toes. There is significant edema and ascending cellulitis to the level of the ankle and lower leg. There is a foul smelling ulcer 4th interspace with purulent drainage. There is duskiness to the 4th/5th toes, as well as the dorsal aspect of the fourth metatarsophalangeal joint. There is crepitus noted to the dorsal 4th metatarsophalangeal joint. WBC: 13.3 ESR: 120 R foot XR: subcutaneous emphysema overlying 4th MTPJ R foot MRI: report pending; air bubbles noted over 4th MTPJ Imp: 36 year old DM M with R foot diabetic gas-forming infection 1. Discussed treatment options with patient. I have recommended surgical decompression given severity of infection. Depending on how things look intra- operatively, I have prepared patient for possible 4th/5th toe amputations. I explained that aggressively surgical treatment is appropriate for gas-forming infection. 2. NPO after breakfast. 3. Will plan for OR debridement this evening. 4. Needs tight glycemic control. 5. Will follow. Manuelito Castaneda DPM
[2017-03-19 08:57] LABS: CHLORIDE 105 mmol/L (98-107); SODIUM 135 mmol/L (136-145)
[2017-03-19 09:06] LABS: ALBUMIN 1.9 g/dl (3.4-5.0); ALK PHOS 96 U/L (45-117); ANION GAP 8 (8-16); BILIRUBIN,TOTAL 0.6 mg/dL (0.2-1.0); BLOOD UREA NITROGEN 11 mg/dL (7-18); CALCIUM 7.3 mg/dL (8.5-10.1); CO2 22 mmol/L (21-32); CREATININE 0.4 mg/dL (0.7-1.3); GLUCOSE,RANDOM 151 mg/dL (74-106); SGOT/AST 26 U/L (15-37); SGPT/ALT 23 U/L (12-78); TOT PROT 6.1 g/dl (6.4-8.2)
[2017-03-19] MEDS ORDERED: COLLAGENASE CLOSTRIDIUM HIST. 30 GRAMS TUBE TP SCH (10:00)
[2017-03-19] MEDS ORDERED: PT OWN MED DRAWER 7, Y5N ONE ×2 (11:47→14:51)
[2017-03-19] MEDS: CEFTRIAXONE IN IS-OSM DEXTROSE 2 GM/50 ML BAG IVPB SCH (11:50)
--- NOTE | 2017-03-19 14:16 | PN ---
Progress Note, Physician Chief Complaint: ID Seen by podiatry with plan for exploration of the wounds and possible amputation for gas producing infection Antibiotics Clindamycin and Ceftriaxone - Current Medication List Current Medications: Active Medications Collagenase (Santyl -) 1 applic TP DAILY [facility] Last Admin: 03/19/17 11:48 Dose: Not Given Heparin Sodium (Porcine) (Heparin -) 5,000 unit SQ TID [facility] Last Admin: 03/19/17 13:56 Dose: Not Given Clindamycin Phosphate (Cleocin 600 Mg Premix Ivpb -) 600 mg in 50 mls @ 100 mls /hr IVPB Q6H-IV [facility] Last Admin: 03/19/17 10:20 Dose: 100 mls/hr CEFTRIAXONE IN IS-OSM DEXTROSE (Ceftriaxone 2 Gm-D5w Bag) 2 gm in 50 mls @ 100 mls/hr IVPB DAILY [facility] Stop: 03/24/17 10:29 Last Admin: 03/19/17 11:50 Dose: 100 mls/hr Insulin Aspart (Novolog Vial Sliding Scale -) 1 vial SQ ACHS [facility] PRN Reason: Protocol Last Admin: 03/19/17 12:04 Dose: Not Given Insulin Detemir (Levemir Vial) 5 units SQ HS [facility] Last Admin: 03/18/17 22:15 Dose: 5 units - Objective Vital Signs: Vital Signs Temperature 98 F 03/19/17 10:17 Pulse Rate 99 H 03/19/17 10:17 Respiratory Rate 18 03/19/17 10:17 Blood Pressure 132/77 03/19/17 10:17 O2 Sat by Pulse Oximetry (%) 98 03/18/17 21:00 Labs: CBC, BMP 03/19/17 06:30 03/19/17 06:30 INR, PTT INR 1.14 (0.82-1.09) 03/19/17 06:30 Problem List - Problems (1) Cellulitis of foot, right Code(s): L03.115 - CELLULITIS OF RIGHT LOWER LIMB (2) Diabetes Code(s): E11.9 - TYPE 2 DIABETES MELLITUS WITHOUT COMPLICATIONS Assessment/Plan Microbiology 03/18/17 04:30 Urine - Urine Clean Catch Urine Culture - Final NO GROWTH OBTAINED 03/18/17 04:30 Foot - Right Gram Stain - Final 03/18/17 04:30 Foot - Right Wound Culture - Preliminary Strep Agalactiae Group B 03/17/17 19:25 Blood - Peripheral Venous Blood Culture - Preliminary NO GROWTH OBTAINED AFTER 24 HOURS, INCUBATION TO CONTINUE FOR 4 DAYS. Selected Entries 03/19/17 10:17 Temperature 98 F Pulse Rate 99 H Respiratory 18 Rate Blood Pressure 132/77 Laboratory Tests 03/17/17 03/18/17 03/18/17 19:25 02:30 02:30 WBC 20.9 H Hgb Plt Count ESR 120 H C-Reactive Protein 28.3 H HIV 1&2 Antibody Screen HIV P24 Antigen 03/18/17 03/18/17 03/19/17 06:35 11:45 06:30 WBC 17.8 H 13.3 H Hgb 11.9 Plt Count 298 ESR C-Reactive Protein HIV 1&2 Antibody Screen Negative HIV P24 Antigen Negative Assessment Gas producing infection wound culture Group B strep/ DM Plan Continue current antibiotics for now ? osteomyelitis Await surgical findings
--- NOTE | 2017-03-19 14:50 | PN ---
Teaching Attending Note Name of Resident: Edu Lopes ATTENDING PHYSICIAN STATEMENT I saw and evaluated the patient. I reviewed the resident's note and discussed the case with the resident. I agree with the resident's findings and plan as documented. SUBJECTIVE:states pain is controlled iwth pain medication. denies CP, SOB, fever , chills, N/V/C/D OBJECTIVE: Last Vital Signs Temp Pulse Resp BP Pulse Ox 99.9 F H 102 H 18 144/83 98 03/19/17 14:00 03/19/17 14:00 03/19/17 14:00 03/19/17 14:00 03/18/17 21:00 General NAD Extremities R foot ulcer in between 4th and 5th digit appears to be deep. boggy skin along 4th digit. no active drainage. no crepitance, pulses intact ASSESSMENT AND PLAN: 36yo M with PMH DM (not on medications) presented to the ER with R foot ulcer 1. Sepsis due to R foot OM 4th and 5th digit-confirmed OM on MRI of 4th and 5th digit. NPO for amputation today by podiatry. will await bone cx. On clindamycin and ceftriaxone day 3. will possibly require prison IV abx. cont pain control. ID, vascular and podiatr on board. 2. DM- A1c 12. improved. on levemir 5 units HS. iss. dietary consult 3. DVT ppx- hep sq
[2017-03-19] MEDS ORDERED: LIDOCAINE HCL/PF 2% SDV 5ML VIAL ONE (17:14)
[2017-03-19] MEDS ORDERED: PROPOFOL 20 ML ONE ×4 (17:14)
[2017-03-19] MEDS ORDERED: SUCCINYLCHOLINE CHLORIDE 200 MG/10 ML VIAL ONE (17:14)
--- NOTE | 2017-03-19 17:46 | PN ---
Progress Note (short form) - Note Progress Note: Podiatry Pre-op NOte: Risks, benefits, alternatives to sx discussed at length with patient and family at bedside. Namely risk of worsening infection, loss of limb, even loss of life. Patient amenable to planned procedure. For OR debridement/lavage with 4th/5th digit amputation under MAC/Local. Manuelito Castaneda DPM
--- NOTE | 2017-03-19 17:49 | PN ---
Physical Exam: Note: pt seen and examined earlier in morning SUBJECTIVE: No acute events overnight. Pt reports pain controlled. Denies fever/ chills, loss of sensation in foot, loss of ROM. OBJECTIVE: Vital Signs Period Temp Pulse Resp BP Sys/Cedillo Pulse Ox Last 24 Hr 98 F-99.9 F 95-103 18-18 126-144/68-83 98 GENERAL: NAD, awake, alert, and fully oriented HEENT: EOMI, DARLINE, sclera anicteric, moist mucosa LUNGS: CTA bilaterally, no wheezes, rhonchi, rales. No accessory muscle use. HEART: Tachycardic with normal rhythm, S1, S2 without murmur ABDOMEN: Soft, nontender, nondistended, normoactive bowel sounds, no guarding, no hepatomegaly EXTREMITIES: R foot wrapped withandage, erythema and edema decreased compared to previous exam, opening between 4th and 5th R toes with extensive depth, slightly more ashen today, areas of open exposure on dorsum of foot now, 2+ DP pulses, warm, cap refill <2sec, ROM with feet and toes intact without limitations bilaterally NEUROLOGICAL: Cranial nerves II through XII grossly intact. Normal speech, gait not observed. PSYCH: Normal mood, normal affect. SKIN: Warm, dry, no rashes, see extremity exam Laboratory Results - last 24 hr 03/18/17 03/18/17 03/19/17 18:12 22:14 05:59 WBC RBC Hgb Hct MCV MCH MCHC RDW Plt Count MPV Neutrophils % Lymphocytes % Monocytes % Eosinophils % Basophils % PT with INR INR Sodium Potassium Chloride Carbon Dioxide Anion Gap BUN Creatinine Creat Clearance w eGFR POC Glucometer 270 195 149 Random Glucose Calcium Total Bilirubin AST ALT Alkaline Phosphatase Total Protein Albumin 03/19/17 03/19/17 03/19/17 06:30 06:30 06:30 WBC 13.3 H RBC 3.98 L Hgb 11.9 Hct 36.1 MCV 90.7 MCH 29.9 MCHC 32.9 RDW 12.5 Plt Count 298 MPV 9.2 Neutrophils % 79.3 Lymphocytes % 12.1 Monocytes % 7.6 Eosinophils % 0.7 D Basophils % 0.3 PT with INR 12.90 H INR 1.14 Sodium 135 L Potassium 4.0 Chloride 105 Carbon Dioxide 22 Anion Gap 8 BUN 11 Creatinine 0.4 L Creat Clearance w eGFR > 60 POC Glucometer Random Glucose 151 H D Calcium 7.3 L Total Bilirubin 0.6 D AST 26 D ALT 23 Alkaline Phosphatase 96 Total Protein 6.1 L Albumin 1.9 L D 03/19/17 12:01 WBC RBC Hgb Hct MCV MCH MCHC RDW Plt Count MPV Neutrophils % Lymphocytes % Monocytes % Eosinophils % Basophils % PT with INR INR Sodium Potassium Chloride Carbon Dioxide Anion Gap BUN Creatinine Creat Clearance w eGFR POC Glucometer 180 Random Glucose Calcium Total Bilirubin AST ALT Alkaline Phosphatase Total Protein Albumin Active Medications Generic Name Dose Route Start Last Admin Trade Name [place] PRN Reason Stop Dose Admin Collagenase 1 applic 03/19/17 10:00 03/19/17 11:48 Santyl - TP Not Given DAILY [facility] Heparin Sodium (Porcine) 5,000 unit 03/18/17 06:00 03/19/17 13:56 Heparin - SQ Not Given TID [facility] Clindamycin Phosphate 600 mg in 50 mls @ 100 mls/hr 03/18/17 11:15 03/19/17 15:13 Cleocin 600 Mg Premix Ivpb - IVPB 100 mls/hr Q6H-IV [facility] Administration CEFTRIAXONE IN IS-OSM DEXTROSE 2 gm in 50 mls @ 100 mls/hr 03/19/17 10:00 11:50 Ceftriaxone 2 Gm-D5w Bag IVPB 03/24/17 10:29 100 mls/hr DAILY [facility] Administration Insulin Aspart 1 vial 03/18/17 07:00 03/19/17 12:04 Novolog Vial Sliding Scale - SQ Not Given [facility] Protocol Insulin Detemir 5 units 03/18/17 22:00 03/18/17 22:15 Levemir Vial SQ 5 units HS [facility] Administration ASSESSMENT/PLAN: 36yo M with no history found to have R foot cellulitis, fungal infection, and possible osteomyelitis 1) R Foot cellulitis --2/2 to fungal infection opportunity --MR was done; pending offical report --Vascular/Wound care on board --Podiatry also consulted --Will take to OR for toe amputation and debridement; 2+ pulses being beneficial for wound healing --Santyl for wound care --ID on case --Rocephin and clindamycin day 3 2) DM --Better glucose control today --A1C 12.6 --BGM ACHS --Diabetic diet --ISS --Levemir 5 HS to continue --Plaster Mixer counselling prior to discharge necessary FEN: Fluids: Tolerating PO Electrolyte Abnormalities: None currently Nutrition: Diabetic diet; NPO prior to procedure PPX: DVt - Holding Heparin 5000U SQ TID in anticipation of OR Dispo: OR today for amputation of toes; awaiting MR report Case discussed with Dr. Aguiar and Dr. Tonya Lopes, DO - Internal Medicine PGY-1 Visit type - Emergency Visit Emergency Visit: No - New Patient This patient is new to me today: No - Critical Care Critical Care patient: No
[2017-03-19] MEDS ORDERED: MIDAZOLAM HCL 2 MG/2 ML SINGLE DOSE VIAL ONE (17:54)
[2017-03-19] MEDS ORDERED: LIDOCAINE HCL 1%, 10 MG/ML (20ML VIAL) ONE (18:18)
[2017-03-19] MEDS ORDERED: LIDOCAINE HCL 2% JELLY (5 ML/TUBE) ONE (18:36)
--- NOTE | 2017-03-19 19:27 | OP ---
Operative Note - Note: Operative Date: 03/19/17 Pre-Operative Diagnosis: Gas gangrene right foot, osteomyelitis right foot Operation: debridement/lavage with fourth and fifth digit amputation right foot Findings: Extensive liquefactive tissue with thrombosed vessels overlying 4th and 5th metatarsals, 4th interspace indicative of gas-forming infection. Acute osteomyelitis with intra-osseus purulence 4th metatarsal head. Post-Operative Diagnosis: Same as Pre-op Surgeon: Prem Castaneda Anesthesiologist/POSTULANT: Ish Cabrera Anesthesia: MAC Specimens Removed: right fourth and fifth digits Estimated Blood Loss (mls): 10 Instrument used (Debridements only): #15 blade scalpel and scissors Operative Report Dictated: Yes
[2017-03-19] MEDS ORDERED: ONDANSETRON 4 MG/2 ML VIAL IVPUSH PRN (19:33)
--- NOTE | 2017-03-19 20:30 | OP ---
DATE OF OPERATION: 03/19/2017 PREOPERATIVE DIAGNOSES: 1. Gas gangrene, right foot. 2. Osteomyelitis, acute, right foot. POSTOPERATIVE DIAGNOSES: 1. Gas gangrene, right foot. 2. Osteomyelitis, acute, right foot. PROCEDURE: Debridement and lavage, right foot with 4th and 5th toe amputation. SURGEON: rPem Castaneda DPM TEMPLATE WORKER: None. HEMOSTASIS: Surgical dissection. ANESTHESIA: Local with IV sedation. ESTIMATED BLOOD LOSS: Minimal. PATHOLOGY: Right 4th and 5th toes. COMPLICATIONS: None. DESCRIPTION OF PROCEDURE: The patient was brought to the operating room and placed on the operating table in the supine position. I elected to not use a tourniquet during the course of the procedure. Following the induction of IV sedation, local anesthesia was achieved utilizing 20 mL of 1% lidocaine plain. The right foot was then scrubbed, prepped, and draped in the usual sterile fashion. Attention was directed to the right foot where a purulent ulcer 4th interspace with ascending cellulitis to the ankle and ischemic blistering and necrosis of the dorsal 4th metatarsal was visualized and appreciated. I began by performing a wedge incision overlying the 4th metatarsal shaft. Immediately upon incision, there was purulent material expressed from the 4th metatarsal shaft as well as the 4th metatarsal bone and the 4th interspace. Additionally, there was extensive liquefactive tissue with thrombosed vessels which is indicative of a gas-forming infection. I performed an excisional debridement of all liquefactive, necrotic, nonviable tissue until there was healthy granular tissue persistent. Next, the 4th and 5th toes were disarticulated at the level of the metatarsophalangeal joint. Toes were subsequently removed, sent to Pathology for analysis. Next, the 4th and 5th metatarsal heads were removed using a sagittal saw. Of note, there was interosseous pus from the 4th metatarsal head. These bones were removed and sent to Pathology for analysis. An additional soft tissue culture was obtained. Surgical site was copiously irrigated with sterile saline mixed with bacitracin in a pulse lavage fashion. The distal aspect of the surgical site was loosely coapted with a 3-0 nylon retention suture. The remainder of the wound was packed open using 1/2-inch Iodoform packing. Following the conclusion of the procedure, the surgical site was covered with Xeroform, and a sterile compressive dressing was applied to the right foot, consisting of sterile gauze, Ave, Kerlix, and an Jaime wrap. Patient tolerated the procedure and anesthesia well, without complications. He was transferred from the operating room to the recovery unit with vital signs stable and neurovasculature intact to the right foot. PENNY CHRIS/[id number] cc: [facility] Podiatry
[2017-03-19] MEDS: LACTATED RINGERS SOLUTION 1,000 ML IV SCH (22:24)
[2017-03-19] MEDS: INSULIN DETEMIR 100 UNITS/ML MDV SQ SCH (22:36)
[2017-03-20] MEDS: CLINDAMYCIN 600MG PREMIX IVPB 600 MG/50 ML BAG IVPB SCH ×4 (03:03→21:04)
[2017-03-20] MEDS: HEPARIN NA (PORCINE) 5,000 UNITS/ML 1ML VIAL SQ SCH ×3 (06:10→21:04)
[2017-03-20] MEDS: INSULIN SLIDING SCALE (NOVOLOG) 1 VIAL SQ SCH ×4 (06:12→21:04)
[2017-03-20] MEDS: LACTATED RINGERS SOLUTION 1,000 ML IV SCH (06:14)
[2017-03-20] MEDS ORDERED: INSULIN (NOVOLOG) ASPART 100 UNITS/ML 10ML VIAL ONE ×3 (06:41→20:24)
[2017-03-20 07:47] LABS: HEMATOCRIT 35.2 % (35.4-49); HEMOGLOBIN 11.7 GM/dL (11.7-16.9); MCHC 33.3 g/dl (32.0-35.9); MEAN CELL VOLUME 89.9 fl (80-96); MEAN PLT VOLUME 9.4 fl (7.5-11.1); PLATELET COUNT 340 K/MM3 (134-434); RBC 3.91 M/mm3 (4.00-5.60); RDW 12.3 % (11.9-15.9); WHITE BLOOD COUNT 12.6 K/mm3 (4.0-10.0)
--- NOTE | 2017-03-20 08:00 | PN ---
Progress Note (short form) - Note Progress Note: Podiatry: Seen/evaluated at bedside, NAD. Pain is controlled, denies F/V/N/C/SOB/CP. Afebrile, VSS. S/p R foot radical debridement with 4th/5th digit amputation for gas gangrene infection POD#1. OBED: R foot: pedal pulses palpable, TG warm-warmer, CFT brisk to digits 1-3. There is a large post-surgical ulcer lateral foot with exposed extensor tendons, exposed metatarsal shafts 4-5. The wound base is mixed fibrogranular. There is no purulent drainage, no malodor, no fluctuance, no soft tissue crepitus, no signs of active infection. There is decreasing erythema/edema to the foot/ ankle. There is mild tenderness to palpation. No ischemic changes to the tissue of the foot. WBC: 12.6 OR Cx: pending Imp: 36 year old DM M s/p R foot radical debridement with 4th/5th digit amputation POD#1 1. IV abx per ID 2. Dakin's irrigation at bedside after removing packing, dakin's gauze + DSD R foot 3. Partial WB R Heel. Needs surgical shoe. 4. F/u OR Cultures 5. Monitor cellulitis 6. Discussed with patient he may need further debridement, as these infections are quite dynamic. Will continue to watch over the weekend. Manuelito Castaneda DPM
[2017-03-20 08:09] LABS: ANION GAP 13 (8-16); BLOOD UREA NITROGEN 8 mg/dL (7-18); CALCIUM 8.4 mg/dL (8.5-10.1); CHLORIDE 101 mmol/L (98-107); CO2 22 mmol/L (21-32); CREATININE 0.4 mg/dL (0.7-1.3); GLUCOSE,RANDOM 142 mg/dL (74-106); SODIUM 136 mmol/L (136-145)
--- NOTE | 2017-03-20 09:53 | PN ---
Progress Note (short form) - Note Progress Note: states pain is controlled. denies Cp, SOB, fever, chills, N/V/C/D Current Medications Generic Name Dose Route Start Last Admin Trade Name Freq PRN Reason Stop Dose Admin Collagenase 1 applic 03/20/17 10:00 Santyl - TP DAILY JERMAINE Fentanyl 50 mcg 03/19/17 19:33 Sublimaze Injection - IVPUSH [id number] PRN PAIN Heparin Sodium (Porcine) 5,000 unit 03/19/17 22:00 03/20/17 06:10 Heparin - SQ 5,000 unit TID JERMAINE Administration Lactated Ringer's 1,000 mls @ 125 mls/hr 03/19/17 19:45 03/20/17 06:14 Lactated Ringers Solution IV 125 mls/hr ASDIR JERMAINE Administration CEFTRIAXONE IN IS-OSM DEXTROSE 2 gm in 50 mls @ 100 mls/hr 03/20/17 10:00 Ceftriaxone 2 Gm-D5w Bag IVPB 03/24/17 10:29 DAILY JERMAINE Clindamycin Phosphate 600 mg in 50 mls @ 100 mls/hr 03/19/17 21:00 03/20/17 03:03 Cleocin 600 Mg Premix Ivpb - IVPB 100 mls/hr Q6H-IV JERMAINE Administration Insulin Aspart 1 vial 03/19/17 22:00 03/20/17 06:12 Novolog Vial Sliding Scale - SQ 2 units ACHS JERMAINE Administration Protocol Insulin Detemir 5 units 03/19/17 22:00 03/19/17 22:36 Levemir Vial SQ 5 units HS JERMAINE Administration Ondansetron HCl 4 mg 03/19/17 19:33 Zofran Injection IVPUSH Q6H PRN NAUSEA AND/OR VOMITING Oxycodone HCl 5 mg 03/19/17 19:28 Roxicodone - PO Q4H PRN PAIN LEVEL 1-5 Sodium Hypochlorite 1 applic 03/20/17 10:00 Dakin's Solution 0.25% (Half-Strength) - TP DAILY JERMAINE Last Vital Signs Temp Pulse Resp BP Pulse Ox 98.3 F 94 H 20 136/80 98 03/20/17 06:00 03/20/17 06:00 03/20/17 06:00 03/20/17 06:00 03/19/17 22:00 General NAD Extremities R foot wrapped c/d/i CBCD WBC 12.6 K/mm3 (4.0-10.0) H 03/20/17 06:00 RBC 3.91 M/mm3 (4.00-5.60) L 03/20/17 06:00 Hgb 11.7 GM/dL (11.7-16.9) 03/20/17 06:00 Hct 35.2 % (35.4-49) L 03/20/17 06:00 MCV 89.9 fl (80-96) 03/20/17 06:00 MCHC 33.3 g/dl (32.0-35.9) 03/20/17 06:00 RDW 12.3 % (11.9-15.9) 03/20/17 06:00 Plt Count 340 K/MM3 (134-434) 03/20/17 06:00 MPV 9.4 fl (7.5-11.1) 03/20/17 06:00 CMP Sodium 136 mmol/L (136-145) 03/20/17 06:00 Potassium 4.0 mmol/L (3.5-5.1) 03/20/17 06:00 Chloride 101 mmol/L (98-107) 03/20/17 06:00 Carbon Dioxide 22 mmol/L (21-32) 03/20/17 06:00 Anion Gap 13 (8-16) 03/20/17 06:00 BUN 8 mg/dL (7-18) D 03/20/17 06:00 Creatinine 0.4 mg/dL (0.7-1.3) L 03/20/17 06:00 Creat Clearance w eGFR > 60 (>60) 03/19/17 06:30 Calcium 8.4 mg/dL (8.5-10.1) L 03/20/17 06:00 Total Bilirubin 0.6 mg/dL (0.2-1.0) D 03/19/17 06:30 AST 26 U/L (15-37) D 03/19/17 06:30 ALT 23 U/L (12-78) 03/19/17 06:30 Alkaline Phosphatase 96 U/L (45-117) 03/19/17 06:30 Total Protein 6.1 g/dl (6.4-8.2) L 03/19/17 06:30 Albumin 1.9 g/dl (3.4-5.0) L D 03/19/17 06:30 Microbiology 03/18/17 04:30 Gram Stain - Final Foot - Right Wound Culture - Preliminary Strep Agalactiae Group B 03/17/17 19:25 Blood Culture - Preliminary Blood - Peripheral Venous NO GROWTH OBTAINED AFTER 48 HOURS, INCUBATION TO CONTINUE FOR 3 DAYS. 03/17/17 19:25 Blood Culture - Preliminary Blood - Peripheral Venous NO GROWTH OBTAINED AFTER 48 HOURS, INCUBATION TO CONTINUE FOR 3 DAYS. 03/18/17 04:30 Urine Culture - Final Urine - Urine Clean Catch NO GROWTH OBTAINED ASSESSMENT AND PLAN: 36yo M with PMH DM (not on medications) presented to the ER with R foot ulcer 1. Sepsis due to R foot OM 4th and 5th digit-s/p debridement/lavage with fourth and fifth digit amputation right foot 03/19. reported with lots of purulence. possible will need further debridement. on Clinda and ceftriaxone day 4. start bacid. will likely require prison abx therapy. WBAT, wound care per podiatry. will await bone cx. ID, vascular and podiatry on board. will d/c IVF. pain control 2. DM- A1c 12. improved. on levemir 5 units HS. iss. dietary consult 3. DVT ppx- hep sq Visit type - Emergency Visit Emergency Visit: Yes ED Registration Date: 03/18/17 Care time: The patient presented to the Emergency Department on the above date and was hospitalized for further evaluation of their emergent condition. - New Patient This patient is new to me today: No - Critical Care Critical Care patient: No - Discharge Referral Referred to [facility] Med P.C.: No
[2017-03-20] MEDS: COLLAGENASE CLOSTRIDIUM HIST. 30 GRAMS TUBE TP SCH (10:11)
[2017-03-20] MEDS: SODIUM HYPOCHLORITE 0.25%- 473 ML BULK BOTTLE TP SCH (10:11)
[2017-03-20] MEDS: LACTOBACILLUS ACIDOPHILUS 1 EACH TAB (FP) PO SCH (10:20)
[2017-03-20] MEDS: CEFTRIAXONE IN IS-OSM DEXTROSE 2 GM/50 ML BAG IVPB SCH (12:03)
--- NOTE | 2017-03-20 13:36 | PN ---
Progress Note (short form) - Note Progress Note: ANESTHESIOLOGY POST-OP CHECK 36M s/p right debridement and amputation of 4th and 5th digits under sedation anesthesia POD #1. No acute complaints, denies N/V. Pain 3/10 and tolerable. Vital Signs Temperature 98.3 F 03/20/17 06:00 Pulse Rate 94 H 03/20/17 06:00 Respiratory Rate 20 03/20/17 06:00 Blood Pressure 136/80 03/20/17 06:00 O2 Sat by Pulse Oximetry (%) 98 03/19/17 22:00 Active Medications Collagenase (Santyl -) 1 applic TP DAILY [facility] Last Admin: 03/20/17 10:11 Dose: Not Given Fentanyl (Sublimaze Injection -) 50 mcg IVPUSH [id number] PRN PRN Reason: PAIN Heparin Sodium (Porcine) (Heparin -) 5,000 unit SQ TID [facility] Last Admin: 03/20/17 06:10 Dose: 5,000 unit CEFTRIAXONE IN IS-OSM DEXTROSE (Ceftriaxone 2 Gm-D5w Bag) 2 gm in 50 mls @ 100 mls/hr IVPB DAILY [facility] Stop: 03/24/17 10:29 Last Admin: 03/20/17 12:03 Dose: 100 mls/hr Clindamycin Phosphate (Cleocin 600 Mg Premix Ivpb -) 600 mg in 50 mls @ 100 mls /hr IVPB Q6H-IV JERMAINE Last Admin: 03/20/17 10:20 Dose: 100 mls/hr Insulin Aspart (Novolog Vial Sliding Scale -) 1 vial SQ ACHS JERMAINE PRN Reason: Protocol Last Admin: 03/20/17 06:12 Dose: 2 units Insulin Detemir (Levemir Vial) 5 units SQ HS [facility] Last Admin: 03/19/17 22:36 Dose: 5 units Lactobacillus Acidophilus (Bacid -) 1 tab PO DAILY [facility] Last Admin: 03/20/17 10:20 Dose: 1 tab Ondansetron HCl (Zofran Injection) 4 mg IVPUSH Q6H PRN PRN Reason: NAUSEA AND/OR VOMITING Oxycodone HCl (Roxicodone -) 5 mg PO Q4H PRN PRN Reason: PAIN LEVEL 1-5 Sodium Hypochlorite (Dakin's Solution 0.25% (Half-Strength) -) 1 applic TP DAILY [facility] Last Admin: 03/20/17 10:11 Dose: 1 applic Gen: awake, alert No apparent anesthesia complications. Pain controlled. Continue management as per primary team.
[2017-03-20] MEDS: INSULIN DETEMIR 100 UNITS/ML MDV SQ SCH (21:04)
[2017-03-21] MEDS: CLINDAMYCIN 600MG PREMIX IVPB 600 MG/50 ML BAG IVPB SCH ×4 (02:00→22:11)
[2017-03-21] MEDS: INSULIN SLIDING SCALE (NOVOLOG) 1 VIAL SQ SCH ×4 (06:13→22:17)
[2017-03-21] MEDS: HEPARIN NA (PORCINE) 5,000 UNITS/ML 1ML VIAL SQ SCH ×3 (06:14→22:11)
[2017-03-21] MEDS ORDERED: INSULIN (NOVOLOG) ASPART 100 UNITS/ML 10ML VIAL ONE ×3 (06:34→22:02)
[2017-03-21] MEDS ORDERED: PT OWN MED DRAWER 7, Y5N ONE ×2 (06:35→10:34)
[2017-03-21 08:18] LABS: BASO % 0.8 % (0-2.0); HEMATOCRIT 37.1 % (35.4-49); HEMOGLOBIN 12.4 GM/dL (11.7-16.9); LYMPH % 13.3 % (8-40); MCHC 33.5 g/dl (32.0-35.9); MEAN CELL VOLUME 89.6 fl (80-96); MEAN PLT VOLUME 9.4 fl (7.5-11.1); MONO % 9.4 % (3.8-10.2); NEUT % 73.5 % (42.8-82.8); PLATELET COUNT 372 K/MM3 (134-434); RBC 4.14 M/mm3 (4.00-5.60); RDW 12.3 % (11.9-15.9); WHITE BLOOD COUNT 11.8 K/mm3 (4.0-10.0)
--- NOTE | 2017-03-21 09:24 | PN ---
Progress Note (short form) - Note Progress Note: has no pain. is not getting out of bed. denies Cp, SOB, fever, chills, N/V/C/D Current Medications Generic Name Dose Route Start Last Admin Trade Name Freq PRN Reason Stop Dose Admin Collagenase 1 applic 03/20/17 10:00 03/20/17 10:11 Santyl - TP Not Given DAILY JERMAINE Fentanyl 50 mcg 03/19/17 19:33 Sublimaze Injection - IVPUSH [id number] PRN PAIN Heparin Sodium (Porcine) 5,000 unit 03/19/17 22:00 03/21/17 06:14 Heparin - SQ 5,000 unit TID JERMAINE Administration CEFTRIAXONE IN IS-OSM DEXTROSE 2 gm in 50 mls @ 100 mls/hr 03/20/17 10:00 12:03 Ceftriaxone 2 Gm-D5w Bag IVPB 03/24/17 10:29 100 mls/hr DAILY JERMAINE Administration Clindamycin Phosphate 600 mg in 50 mls @ 100 mls/hr 03/19/17 21:00 03/21/17 02:00 Cleocin 600 Mg Premix Ivpb - IVPB 100 mls/hr Q6H-IV JERMAINE Administration Insulin Aspart 1 vial 03/19/17 22:00 03/21/17 06:13 Novolog Vial Sliding Scale - SQ Not Given ACHS JERMAINE Protocol Insulin Detemir 5 units 03/19/17 22:00 03/20/17 21:04 Levemir Vial SQ 5 units HS JERMAINE Administration Lactobacillus Acidophilus 1 tab 03/20/17 10:00 03/20/17 10:20 Bacid - PO 1 tab DAILY JERMAINE Administration Ondansetron HCl 4 mg 03/19/17 19:33 Zofran Injection IVPUSH Q6H PRN NAUSEA AND/OR VOMITING Oxycodone HCl 5 mg 03/19/17 19:28 Roxicodone - PO Q4H PRN PAIN LEVEL 1-5 Sodium Hypochlorite 1 applic 03/20/17 10:00 03/20/17 10:11 Dakin's Solution 0.25% (Half-Strength) - TP 1 applic DAILY JERMAINE Administration Last Vital Signs Temp Pulse Resp BP Pulse Ox 99 F 90 20 142/85 98 03/21/17 05:56 03/21/17 05:56 03/21/17 05:56 03/21/17 05:56 03/20/17 20:58 General NAD CV S1 S2 RRR no murmur/rub/gallop Lungs CTA B/L no wheezing/rales/rhonchi Extremities R foot wrapped c/d/i CBCD WBC 11.8 K/mm3 (4.0-10.0) H 03/21/17 06:00 RBC 4.14 M/mm3 (4.00-5.60) 03/21/17 06:00 Hgb 12.4 GM/dL (11.7-16.9) 03/21/17 06:00 Hct 37.1 % (35.4-49) 03/21/17 06:00 MCV 89.6 fl (80-96) 03/21/17 06:00 MCHC 33.5 g/dl (32.0-35.9) 03/21/17 06:00 RDW 12.3 % (11.9-15.9) 03/21/17 06:00 Plt Count 372 K/MM3 (134-434) 03/21/17 06:00 MPV 9.4 fl (7.5-11.1) 03/21/17 06:00 CMP Sodium 136 mmol/L (136-145) 03/20/17 06:00 Potassium 4.0 mmol/L (3.5-5.1) 03/20/17 06:00 Chloride 101 mmol/L (98-107) 03/20/17 06:00 Carbon Dioxide 22 mmol/L (21-32) 03/20/17 06:00 Anion Gap 13 (8-16) 03/20/17 06:00 BUN 8 mg/dL (7-18) D 03/20/17 06:00 Creatinine 0.4 mg/dL (0.7-1.3) L 03/20/17 06:00 Creat Clearance w eGFR > 60 (>60) 03/19/17 06:30 Calcium 8.4 mg/dL (8.5-10.1) L 03/20/17 06:00 Total Bilirubin 0.6 mg/dL (0.2-1.0) D 03/19/17 06:30 AST 26 U/L (15-37) D 03/19/17 06:30 ALT 23 U/L (12-78) 03/19/17 06:30 Alkaline Phosphatase 96 U/L (45-117) 03/19/17 06:30 Total Protein 6.1 g/dl (6.4-8.2) L 03/19/17 06:30 Albumin 1.9 g/dl (3.4-5.0) L D 03/19/17 06:30 Microbiology 03/17/17 19:25 Blood Culture - Preliminary Blood - Peripheral Venous NO GROWTH OBTAINED AFTER 72 HOURS, INCUBATION TO CONTINUE FOR 2 DAYS. 03/17/17 19:25 Blood Culture - Preliminary Blood - Peripheral Venous NO GROWTH OBTAINED AFTER 72 HOURS, INCUBATION TO CONTINUE FOR 2 DAYS. 03/19/17 19:20 Gram Stain - Final Bone 03/19/17 19:20 Gram Stain - Final Foot - Right 03/18/17 04:30 Gram Stain - Final Foot - Right Wound Culture - Final Strep Agalactiae Group B ASSESSMENT AND PLAN: 36yo M with PMH DM (not on medications) presented to the ER with R foot ulcer 1. Sepsis due to R foot OM 4th and 5th digit-s/p debridement/lavage with fourth and fifth digit amputation right foot 03/19. obtained surgical shoes. encouraged to get out of bed and ambulate with heel of shoe. on Clinda and ceftriaxone day 5. cont bacid. will likely require termite technician abx therapy. WBAT, wound care per podiatry. will await bone cx. ID, vascular and podiatry on board. pain control 2. DM- A1c 12. improved. on levemir 5 units HS. iss. dietary consult, diabetic teaching by RN 3. HTN- peristently above goal. start lisnopril 5mg 4. DVT ppx- hep sq Visit type - Emergency Visit Emergency Visit: Yes ED Registration Date: 03/18/17 Care time: The patient presented to the Emergency Department on the above date and was hospitalized for further evaluation of their emergent condition. - New Patient This patient is new to me today: No - Critical Care Critical Care patient: No - Discharge Referral Referred to [facility] Med P.C.: No
[2017-03-21] MEDS: LISINOPRIL 5 MG TABLET (FP) PO SCH (10:39)
[2017-03-21] MEDS: LACTOBACILLUS ACIDOPHILUS 1 EACH TAB (FP) PO SCH (10:39)
[2017-03-21] MEDS: CEFTRIAXONE IN IS-OSM DEXTROSE 2 GM/50 ML BAG IVPB SCH ×2 (10:45→10:46)
[2017-03-21] MEDS: COLLAGENASE CLOSTRIDIUM HIST. 30 GRAMS TUBE TP SCH (10:46)
--- NOTE | 2017-03-21 11:23 | PN ---
Progress Note (short form) - Note Progress Note: Podiatry: Seen/evaluated at bedside, NAD. Pain well controlled, denies F/V/N/C/SOB/CP. Did have temp to 100F last night, however currently afebrile, VSS. S/p R 4th/ 5th toe amputation, debridement/lavage for gas-forming infection. OBED: R foot: pedal pulses 1/4, TG warm-warmer, CFT brisk to toes 1-3. Large post- surgical ulcer lateral foot with exposed 4th/5th metatarsal shafts. There is mixed fibrogranular base, exposed extensor tendons, mild duskiness noted to periphery of ulcer, no purulence, no fluctuance, no soft tissue crepitus, no signs of acute infection. Surrounding erythema showing mild improvement. WBC: 11.8 OR Cx: GPC pairs, pending OR Path: pending Imp: 36 year old DM M s/p R 4th/5th toe amputation and debridement/lavage for gas-forming infection 1. IV abx per Infectious Disease 2. Dakin's irrigation at bedside, Dakin's + DSD R foot 3. Partial WB R heel with surgical shoe and rolling walker 4. F/u OR cultures, path 5. Would benefit greatly for inpatient HBO therapy to assist in hyperoxygenation of viable tissues given gas-forming infection 6. Will likely need OR debridement. Will follow. Manuelito Castaneda DPM
[2017-03-21] MEDS: SODIUM HYPOCHLORITE 0.25%- 473 ML BULK BOTTLE TP SCH (12:14)
[2017-03-21] MEDS: INSULIN DETEMIR 100 UNITS/ML MDV SQ SCH (22:17)
[2017-03-21] MEDS: oxyCODONE HCL 5 MG TABLET PO PRN (22:18)
[2017-03-22] MEDS: CLINDAMYCIN 600MG PREMIX IVPB 600 MG/50 ML BAG IVPB SCH ×4 (02:15→20:54)
[2017-03-22] MEDS: INSULIN SLIDING SCALE (NOVOLOG) 1 VIAL SQ SCH ×4 (06:40→21:00)
[2017-03-22] MEDS: HEPARIN NA (PORCINE) 5,000 UNITS/ML 1ML VIAL SQ SCH ×3 (06:41→21:02)
[2017-03-22] MEDS ORDERED: PT OWN MED DRAWER 7, Y5N ONE ×2 (09:19→14:00)
[2017-03-22] MEDS: CEFTRIAXONE IN IS-OSM DEXTROSE 2 GM/50 ML BAG IVPB SCH (09:26)
[2017-03-22] MEDS: LACTOBACILLUS ACIDOPHILUS 1 EACH TAB (FP) PO SCH (09:26)
[2017-03-22] MEDS: LISINOPRIL 5 MG TABLET (FP) PO SCH (09:26)
[2017-03-22] MEDS: COLLAGENASE CLOSTRIDIUM HIST. 30 GRAMS TUBE TP SCH (09:27)
[2017-03-22] MEDS: SODIUM HYPOCHLORITE 0.25%- 473 ML BULK BOTTLE TP SCH (09:32)
--- NOTE | 2017-03-22 09:55 | PN ---
Progress Note (short form) - Note Progress Note: has no pain. Denies Cp, SOB, fever, chills, N/V/C/D Current Medications Generic Name Dose Route Start Last Admin Trade Name [place] PRN Reason Stop Dose Admin Collagenase 1 applic 03/20/17 10:00 03/22/17 09:27 Santyl - TP Not Given DAILY JERMAINE Fentanyl 50 mcg 03/19/17 19:33 Sublimaze Injection - IVPUSH [id number] PRN PAIN Heparin Sodium (Porcine) 5,000 unit 03/19/17 22:00 03/22/17 06:41 Heparin - SQ 5,000 unit TID JERMAINE Administration CEFTRIAXONE IN IS-OSM DEXTROSE 2 gm in 50 mls @ 100 mls/hr 03/20/17 10:00 04/08 09:26 Ceftriaxone 2 Gm-D5w Bag IVPB 03/24/17 10:29 100 mls/hr DAILY JERMAINE Administration Clindamycin Phosphate 600 mg in 50 mls @ 100 mls/hr 03/19/17 21:00 03/22/17 08:18 Cleocin 600 Mg Premix Ivpb - IVPB 100 mls/hr Q6H-IV JERMAINE Administration Insulin Aspart 1 vial 03/19/17 22:00 03/22/17 06:40 Novolog Vial Sliding Scale - SQ 2 units ACHS JERMAINE Administration Protocol Insulin Detemir 5 units 03/19/17 22:00 03/21/17 22:17 Levemir Vial SQ 5 units HS JERMAINE Administration Lactobacillus Acidophilus 1 tab 03/20/17 10:00 03/22/17 09:26 Bacid - PO 1 tab DAILY JERMAINE Administration Lisinopril 5 mg 03/21/17 10:00 03/22/17 09:26 Prinivil PO 5 mg DAILY JERMAINE Administration Ondansetron HCl 4 mg 03/19/17 19:33 Zofran Injection IVPUSH Q6H PRN NAUSEA AND/OR VOMITING Oxycodone HCl 5 mg 03/19/17 19:28 03/21/17 22:18 Roxicodone - PO 5 mg Q4H PRN Administration PAIN LEVEL 1-5 Sodium Hypochlorite 1 applic 03/20/17 10:00 03/22/17 09:32 Dakin's Solution 0.25% (Half-Strength) - TP 1 applic DAILY JERMAINE Administration Last Vital Signs Temp Pulse Resp BP Pulse Ox 98.3 F 87 20 102/71 98 03/22/17 08:36 03/22/17 08:36 03/22/17 08:36 03/22/17 08:36 03/21/17 21:00 General NAD CV S1 S2 RRR no murmur/rub/gallop Lungs CTA B/L no wheezing/rales/rhonchi Extremities R foot wrapped c/d/i CBCD WBC 11.8 K/mm3 (4.0-10.0) H 03/21/17 06:00 RBC 4.14 M/mm3 (4.00-5.60) 03/21/17 06:00 Hgb 12.4 GM/dL (11.7-16.9) 03/21/17 06:00 Hct 37.1 % (35.4-49) 03/21/17 06:00 MCV 89.6 fl (80-96) 03/21/17 06:00 MCHC 33.5 g/dl (32.0-35.9) 03/21/17 06:00 RDW 12.3 % (11.9-15.9) 03/21/17 06:00 Plt Count 372 K/MM3 (134-434) 03/21/17 06:00 MPV 9.4 fl (7.5-11.1) 03/21/17 06:00 Microbiology 03/19/17 19:20 Gram Stain - Final Bone Tissue Culture - Preliminary Strep Agalactiae Group B Anaerobic Culture - Final NO ANAEROBES WERE ISOLATED 03/17/17 19:25 Blood Culture - Preliminary Blood - Peripheral Venous NO GROWTH OBTAINED AFTER 96 HOURS, INCUBATION TO CONTINUE FOR 1 DAYS. 03/17/17 19:25 Blood Culture - Preliminary Blood - Peripheral Venous NO GROWTH OBTAINED AFTER 96 HOURS, INCUBATION TO CONTINUE FOR 1 DAYS. 03/19/17 19:20 Gram Stain - Final Foot - Right Wound Culture - Preliminary Beta Hemolytic Strep ASSESSMENT AND PLAN: 36yo M with PMH DM (not on medications) presented to the ER with R foot ulcer 1. Sepsis due to R foot OM 4th and 5th digit-s/p debridement/lavage with fourth and fifth digit amputation right foot 03/19. NPO tonight for further debridement in the OR in the AM. on Clinda and ceftriaxone day 6. cont bacid. will likely require terminal gauger abx therapy. WBAT, wound care per podiatry. will await bone cx. ID, vascular and podiatry on board. pain control. encouraged to get out of bed and ambulate with heel of shoe. podiatry recommended HBO therapy however unclear if pt has insurance or not. requested pt to have bring paperwork. will be unable to afford if has no insuracne. 2. DM- A1c 12. improved. on levemir 5 units HS. iss. dietary consult, diabetic teaching by RN 3. HTN- controlled. lisnopril 5mg 4. DVT ppx- hep sq Visit type - Emergency Visit Emergency Visit: Yes ED Registration Date: 03/18/17 Care time: The patient presented to the Emergency Department on the above date and was hospitalized for further evaluation of their emergent condition. - New Patient This patient is new to me today: No - Critical Care Critical Care patient: No - Discharge Referral Referred to [facility] Med P.C.: No
--- NOTE | 2017-03-22 10:27 | PN ---
Progress Note (short form) - Note Progress Note: Podiatry F/U: Seen/evaluated at bedside, NAD. Pain controlled, denies F/V/N/C/SOB/CP. Afebrile, VSS. S/p R 4th/5th toe amputation and debridement for gas-forming infection. OBED: R foot: post-surgical ulcer lateral foot with mixed fibrogranular base, dessication noted at wound bed, no purulent drainage, no fluctuance, no soft tissue crepitus, no signs of acute infection. Periwound cellulitis improving. No ischemic changes to the foot. CFT brisk to digits 1-3 WBC: 11.8 OR Cx: beta strep B Imp: 36 year old DM M R gas gangrene infection s/p R 4th/5th toe amputation and debridement 1. C/w IV abx per Infectious Disease 2. Dakin's gauze + DSD R foot 3. Partial WB R heel with surgical shoe 4. For OR debridement tomorrow. NPO at midnight. 5. HBO therapy inpatient pending insurance. 6. Will need half-way IV abx therapy. 7. Will follow. Manuelito Castaneda DPM
[2017-03-22] MEDS: oxyCODONE HCL 5 MG TABLET PO PRN (10:46)
[2017-03-22] MEDS ORDERED: INSULIN (NOVOLOG) ASPART 100 UNITS/ML 10ML VIAL ONE ×2 (12:06→20:18)
[2017-03-22] MEDS: INSULIN DETEMIR 100 UNITS/ML MDV SQ SCH (21:01)
[2017-03-23] MEDS: CLINDAMYCIN 600MG PREMIX IVPB 600 MG/50 ML BAG IVPB SCH ×5 (02:31→21:22)
[2017-03-23] MEDS: HEPARIN NA (PORCINE) 5,000 UNITS/ML 1ML VIAL SQ SCH ×3 (06:29→21:22)
[2017-03-23] MEDS: INSULIN SLIDING SCALE (NOVOLOG) 1 VIAL SQ SCH ×4 (06:31→21:24)
--- NOTE | 2017-03-23 09:11 | PN ---
Physical Exam: SUBJECTIVE: No acute events overnight. No complaints today. Pain continues to be controlled. Pt to go to OR today for debridement of wound. OBJECTIVE: Vital Signs Period Temp Pulse Resp BP Sys/Cedillo Pulse Ox Last 24 Hr 98.3 F-99.5 F 82-92 20-20 108-139/69-84 97 GENERAL: NAD, awake, alert, and fully oriented HEENT: NC/AT, No JVD, sclera anicteric, EOMI, DARLINE LUNGS: CTA bilaterally, no wheezes, rhonchi, rales. no accessory muscle use. HEART: RRR, S1, S2 without murmur ABDOMEN: Soft, nontender, nondistended, normoactive bowel sounds, no guarding, no rebound, no hepatomegaly, no masses. EXTREMITIES: 2+ DP pulses, warm, well-perfused, no edema, pt retains ability to move toes, sensation intact at toe-tips, cap refill <2sec NEUROLOGICAL: Cranial nerves II through XII grossly intact. Normal speech, gait not observed. PSYCH: Normal mood, normal affect. SKIN: Warm, dry, bandage to R foot noted without any purulence or bloody let- through; wound not visualized today due to impending OR procedure Laboratory Results - last 24 hr 03/22/17 03/22/17 03/22/17 12:02 16:16 20:58 POC Glucometer 182 221 272 03/23/17 06:30 POC Glucometer 190 Active Medications Generic Name Dose Route Start Last Admin Trade Name Freq PRN Reason Stop Dose Admin Collagenase 1 applic 03/20/17 10:00 03/22/17 09:27 Santyl - TP Not Given DAILY JERMAINE Fentanyl 50 mcg 03/19/17 19:33 Sublimaze Injection - IVPUSH [id number] PRN PAIN Heparin Sodium (Porcine) 5,000 unit 03/19/17 22:00 03/23/17 06:29 Heparin - SQ Not Given TID JERMAINE CEFTRIAXONE IN IS-OSM DEXTROSE 2 gm in 50 mls @ 100 mls/hr 03/20/17 10:00 04/08 09:26 Ceftriaxone 2 Gm-D5w Bag IVPB 03/24/17 10:29 100 mls/hr DAILY JERMAINE Administration Clindamycin Phosphate 600 mg in 50 mls @ 100 mls/hr 03/19/17 21:00 03/23/17 09:00 Cleocin 600 Mg Premix Ivpb - IVPB 100 mls/hr Q6H-IV JERMAINE Administration Insulin Aspart 1 vial 03/19/17 22:00 03/23/17 06:31 Novolog Vial Sliding Scale - SQ Not Given ACHS [facility] Protocol Insulin Detemir 5 units 03/19/17 22:00 03/22/17 21:01 Levemir Vial SQ 5 units HS JERMAINE Administration Lactobacillus Acidophilus 1 tab 03/20/17 10:00 03/22/17 09:26 Bacid - PO 1 tab DAILY JERMAINE Administration Lisinopril 5 mg 03/21/17 10:00 03/22/17 09:26 Prinivil PO 5 mg DAILY JERMAINE Administration Ondansetron HCl 4 mg 03/19/17 19:33 Zofran Injection IVPUSH Q6H PRN NAUSEA AND/OR VOMITING Oxycodone HCl 5 mg 03/19/17 19:28 03/22/17 10:46 Roxicodone - PO 5 mg Q4H PRN Administration PAIN LEVEL 1-5 Sodium Hypochlorite 1 applic 03/20/17 10:00 03/22/17 09:32 Dakin's Solution 0.25% (Half-Strength) - TP 1 applic DAILY JERMAINE Administration ASSESSMENT/PLAN: 36yo M with no history found to have R foot cellulitis, fungal infection, and possible osteomyelitis 1) R foot 4th and 5th toe infection with osteomyelitis --s/p 4th and 5th toe amputation --Cultures noted and reviewed --Will most likely need long-term antibiotic therapy --Pt for debridement procedure today --Podiatry on board --Recommended HBO therapy however insurance may be problematic for patient --ID on case --Day 4 Rocephin and Clindamycin --Continue Bacid 2) DM --A1C 12.6 --BGM ACHS --Diabetic diet --ISS --Levemir 5 HS to continue --Wildland Firefighter counselling prior to discharge necessary --Lisinopril 5mg PO qDaily FEN: Fluids: None currently Electrolyte Abnormalities: None currently Nutrition: NPO for procedure today PPX: DVt - Holding Heparin 5000U SQ TID in anticipation of OR procedure Dispo: OR today for debridement Case discussed with Dr. Sonia Lopes, DO - Internal Medicine PGY-1 Visit type - Emergency Visit Emergency Visit: No - New Patient This patient is new to me today: No - Critical Care Critical Care patient: No
[2017-03-23] MEDS: CEFTRIAXONE IN IS-OSM DEXTROSE 2 GM/50 ML BAG IVPB SCH (09:56)
[2017-03-23] MEDS: LISINOPRIL 5 MG TABLET (FP) PO SCH (09:56)
[2017-03-23] MEDS: LACTOBACILLUS ACIDOPHILUS 1 EACH TAB (FP) PO SCH (09:56)
[2017-03-23] MEDS: COLLAGENASE CLOSTRIDIUM HIST. 30 GRAMS TUBE TP SCH (09:57)
[2017-03-23] MEDS: SODIUM HYPOCHLORITE 0.25%- 473 ML BULK BOTTLE TP SCH (09:57)
[2017-03-23] MEDS ORDERED: LIDOCAINE HCL 1%, 10 MG/ML (20ML VIAL) ONE (11:09)
[2017-03-23] MEDS ORDERED: MIDAZOLAM HCL 2 MG/2 ML SINGLE DOSE VIAL ONE ×2 (13:40)
[2017-03-23] MEDS ORDERED: PROPOFOL 20 ML ONE (13:45)
[2017-03-23] MEDS ORDERED: LIDOCAINE HCL 1%, 10 MG/ML (20ML VIAL) INF ONE (14:06)
[2017-03-23] MEDS ORDERED: LIDOCAINE HCL 2% (20ML MULTI-DOSE VIAL) NR ONE (14:19)
[2017-03-23] MEDS ORDERED: LIDOCAINE HCL 2% (50ML VIAL) INF ONE (14:24)
[2017-03-23] MEDS ORDERED: ONDANSETRON 4 MG/2 ML VIAL IVPUSH PRN ×3 (14:56→15:25)
[2017-03-23] MEDS ORDERED: LACTATED RINGERS SOLUTION 1,000 ML IV SCH ×2 (15:00→15:25)
--- NOTE | 2017-03-23 15:15 | OP ---
Operative Note - Note: Operative Date: 03/23/17 Pre-Operative Diagnosis: Gas gangrene right foot Operation: Debridement/lavage right foot Post-Operative Diagnosis: Same as Pre-op Surgeon: Prem Castaneda Anesthesiologist/LOOM FIXER: Teresa Ellis MD Anesthesia: Local, MAC Estimated Blood Loss (mls): 10 Instrument used (Debridements only): #15 blade scalpel and scissors Operative Report Dictated: Yes
[2017-03-23] MEDS ORDERED: oxyCODONE HCL 5 MG TABLET PO PRN (15:25)
--- NOTE | 2017-03-23 15:50 | PN ---
Progress Note, Physician History of Present Illness: S/P debridement R foot No c/o pain Afebrile WBC improved - Current Medication List Current Medications: Active Medications Collagenase (Santyl -) 1 applic TP DAILY ON LICENSE OF [facility] Fentanyl (Sublimaze Injection -) 50 mcg IVPUSH [id number] PRN PRN Reason: PAIN Heparin Sodium (Porcine) (Heparin -) 5,000 unit SQ TID JERMAINE CEFTRIAXONE IN IS-OSM DEXTROSE (Ceftriaxone 2 Gm-D5w Bag) 2 gm in 50 mls @ 100 mls/hr IVPB DAILY JERMAINE Stop: 03/24/17 10:29 Clindamycin Phosphate (Cleocin 600 Mg Premix Ivpb -) 600 mg in 50 mls @ 100 mls /hr IVPB Q6H-IV JERMAINE Lactated Ringer's (Lactated Ringers Solution) 1,000 mls @ 125 mls/hr IV ASDIR JERMAINE Insulin Aspart (Novolog Vial Sliding Scale -) 1 vial SQ ACHS JERMAINE PRN Reason: Protocol Insulin Detemir (Levemir Vial) 5 units SQ HS [facility]ERMAINE Lactobacillus Acidophilus (Bacid -) 1 tab PO DAILY JERMAINE Lisinopril (Prinivil) 5 mg PO DAILY [facility]ERMAINE Ondansetron HCl (Zofran Injection) 4 mg IVPUSH Q6H PRN PRN Reason: NAUSEA AND/OR VOMITING Oxycodone HCl (Roxicodone -) 5 mg PO Q4H PRN PRN Reason: PAIN LEVEL 1-5 Sodium Hypochlorite (Dakin's Solution 0.25% (Half-Strength) -) 1 applic TP DAILY ON LICENSE OF [facility] - Objective Vital Signs: Vital Signs Temperature 98.6 F 03/23/17 15:40 Pulse Rate 82 03/23/17 15:40 Respiratory Rate 16 03/23/17 15:40 Blood Pressure 114/74 03/23/17 15:40 O2 Sat by Pulse Oximetry (%) 100 03/23/17 15:40 Constitutional: Yes: No Distress Cardiovascular: Yes: Regular Rate and Rhythm, S1, S2 Respiratory: Yes: CTA Bilaterally Gastrointestinal: Yes: Normal Bowel Sounds, Soft. No: Tenderness Extremities: Yes: Other (post op dressing in place R foot) Labs: CBC, BMP 03/21/17 06:00 03/20/17 06:00 INR, PTT INR 1.14 (0.82-1.09) 03/19/17 06:30 Assessment/Plan Post op toe amputation, debridement R foot Diabetes mellitus Continue ceftriaxone/ clindamycin
[2017-03-23] MEDS ORDERED: PT OWN MED DRAWER 7, Y5N ONE (15:56)
--- NOTE | 2017-03-23 16:00 | OP ---
DATE OF OPERATION: 03/23/2017 PREOPERATIVE DIAGNOSIS: Diabetic foot ulcer, right foot. POSTOPERATIVE DIAGNOSIS: Diabetic foot ulcer, right foot. PROCEDURE: Right foot debridement and lavage. SURGEON: Prem Castaneda DPM SALES DIRECTOR: None. ANESTHESIA: Local with IV sedation. ESTIMATED BLOOD LOSS: Minimal. PATHOLOGY: None. HEMOSTASIS: Surgical dissection. COMPLICATIONS: None. DESCRIPTION OF PROCEDURE: Patient was brought to the operating room and placed on the operating table in the supine position. I elected to not use a tourniquet during the course of the procedure. Following the induction of IV sedation, local anesthesia was achieved utilizing 14 mL of 2% lidocaine plain. The right foot was then scrubbed, prepped, and draped in the usual sterile fashion. Attention was directed to the right lateral foot where a large postsurgical ulcer from a gas gangrene infection was visualized and appreciated. I began by performing excisional debridement to the level of subcutaneous tissue and muscle utilizing a sterile 15 blade and sterile scissors. Of note, there was persistent liquefactive tissue with thrombosed vessels which was subsequently removed. Once healthy granular tissue persisted, the surgical site was copiously irrigated with sterile saline mixed with bacitracin in a pulse lavage fashion. Retention sutures were applied using 4-0 nylon loosely. The surgical site was packed with 1/2-inch Iodoform packing. Following the conclusion of the procedure, the surgical site was covered with Xeroform, and a sterile compressive dressing was applied to the right foot consisting of sterile gauze, Ave, Kerlix, and an Jaime wrap. Patient tolerated the procedure and anesthesia well, without complication. He was transferred from the operating room to the recovery unit with vital signs stable and neurovasculature intact to the right foot. PENNY [id number] cc: [facility]
--- NOTE | 2017-03-23 19:26 | PN ---
Teaching Attending Note Name of Resident: Edu Lopes ATTENDING PHYSICIAN STATEMENT Time of evaluation: 11;35 AM I saw and evaluated the patient. I reviewed the resident's note and discussed the case with the resident. I agree with the resident's findings and plan as documented. SUBJECTIVE: patient seen and examined, no complaints, awaiting procedure today. OBJECTIVE: Vital Signs Period Temp Pulse Resp BP Sys/Cedillo Pulse Ox Last 24 Hr 97.9 F-98.6 F 77-88 14-20 109-136/67-85 94-100 Intake & Output 03/20/17 03/21/17 03/22/17 03/23/17 23:59 23:59 23:59 23:59 Intake Total 2700 1689 397 8293 Output Total 1200 Balance 1500 7952 041 3160 General: sitting in bed in no acute distress extremities: right foot dressing with minimal surrounding edema, able to move toes well Active Medications Generic Name Dose Route Start Last Admin Trade Name Freq PRN Reason Stop Dose Admin Collagenase 1 applic 03/24/17 10:00 Santyl - TP DAILY JERMAINE Fentanyl 50 mcg 03/23/17 15:25 Sublimaze Injection - IVPUSH [id number] PRN PAIN Heparin Sodium (Porcine) 5,000 unit 03/23/17 22:00 Heparin - SQ TID JERMAINE CEFTRIAXONE IN IS-OSM DEXTROSE 2 gm in 50 mls @ 100 mls/hr 03/24/17 10:00 Ceftriaxone 2 Gm-D5w Bag IVPB 03/24/17 10:29 DAILY JERMAINE Clindamycin Phosphate 600 mg in 50 mls @ 100 mls/hr 03/23/17 16:30 03/23/17 16:23 Cleocin 600 Mg Premix Ivpb - IVPB 100 mls/hr Q6H-IV JERMAINE Administration Insulin Aspart 1 vial 03/23/17 16:30 03/23/17 16:11 Novolog Vial Sliding Scale - SQ Not Given ACHS JERMAINE Protocol Insulin Detemir 5 units 03/23/17 22:00 Levemir Vial SQ HS JERMAINE Lactobacillus Acidophilus 1 tab 03/24/17 10:00 Bacid - PO DAILY JERMAINE Lisinopril 5 mg 03/24/17 10:00 Prinivil PO DAILY JERMAINE Ondansetron HCl 4 mg 03/23/17 15:25 Zofran Injection IVPUSH Q6H PRN NAUSEA AND/OR VOMITING Oxycodone HCl 5 mg 03/23/17 15:25 Roxicodone - PO Q4H PRN PAIN LEVEL 1-5 Sodium Hypochlorite 1 applic 03/24/17 10:00 Dakin's Solution 0.25% (Half-Strength) - TP DAILY JERMAINE ASSESSMENT AND PLAN: 36yo M with PMH DM (not on medications) presented to the ER with R foot ulcer 1. Sepsis due to R foot OM 4th and 5th digit-s/p debridement/lavage with fourth and fifth digit amputation right foot 03/19. Further debridement today. on Clinda and ceftriaxone day 7. cont bacid. will likely require predatory animal exterminator abx therapy. WBAT, wound care per podiatry. will await bone cx. ID, vascular and podiatry on board. pain control. encouraged to get out of bed and ambulate with heel of shoe. podiatry recommended HBO therapy however unclear if pt has insurance or not. requested pt to have bring paperwork. will be unable to afford if has no insurance. 2. DM- A1c 12. improved. on levemir 5 units HS. iss. dietary consult, diabetic teaching by RN 3. HTN- controlled. lisnopril 5mg 4. DVT ppx- hep sq
[2017-03-23] MEDS ORDERED: CLINDAMYCIN 600MG PREMIX IVPB 600 MG/50 ML BAG IVPB SCH (21:00)
[2017-03-23] MEDS: INSULIN DETEMIR 100 UNITS/ML MDV SQ SCH (21:23)
[2017-03-24] MEDS: CLINDAMYCIN 600MG PREMIX IVPB 600 MG/50 ML BAG IVPB SCH ×4 (02:21→21:29)
[2017-03-24] MEDS: HEPARIN NA (PORCINE) 5,000 UNITS/ML 1ML VIAL SQ SCH ×3 (06:21→21:30)
[2017-03-24] MEDS: INSULIN SLIDING SCALE (NOVOLOG) 1 VIAL SQ SCH ×4 (06:21→21:35)
[2017-03-24 08:22] LABS: EOS % 2.3 % (0-4.5); HEMATOCRIT 37.1 % (35.4-49); HEMOGLOBIN 12.5 GM/dL (11.7-16.9); LYMPH % 18.7 % (8-40); MCH 30.3 pg (25.7-33.7); MCHC 33.7 g/dl (32.0-35.9); MEAN CELL VOLUME 89.8 fl (80-96); MEAN PLT VOLUME 8.4 fl (7.5-11.1); MONO % 8.3 % (3.8-10.2); NEUT % 69.7 % (42.8-82.8); PLATELET COUNT 480 K/MM3 (134-434); RBC 4.13 M/mm3 (4.00-5.60); RDW 12.7 % (11.9-15.9); WHITE BLOOD COUNT 11.4 K/mm3 (4.0-10.0)
[2017-03-24 08:28] LABS: ANION GAP 9 (8-16); BLOOD UREA NITROGEN 11 mg/dL (7-18); CALCIUM 8.6 mg/dL (8.5-10.1); CHLORIDE 100 mmol/L (98-107); CO2 24 mmol/L (21-32); CREATININE 0.6 mg/dL (0.7-1.3); GLUCOSE,RANDOM 173 mg/dL (74-106); POTASSIUM 4.6 mmol/L (3.5-5.1); SODIUM 133 mmol/L (136-145)
[2017-03-24] MEDS: COLLAGENASE CLOSTRIDIUM HIST. 30 GRAMS TUBE TP SCH (09:22)
[2017-03-24] MEDS: LISINOPRIL 5 MG TABLET (FP) PO SCH (09:22)
[2017-03-24] MEDS: LACTOBACILLUS ACIDOPHILUS 1 EACH TAB (FP) PO SCH (09:22)
[2017-03-24] MEDS: SODIUM HYPOCHLORITE 0.25%- 473 ML BULK BOTTLE TP SCH (09:24)
[2017-03-24] MEDS ORDERED: CEFTRIAXONE IN IS-OSM DEXTROSE 2 GM/50 ML BAG IVPB SCH (10:00)
--- NOTE | 2017-03-24 11:50 | PN ---
Progress Note (short form) - Note Progress Note: Podiatry: Seen/evaluated at bedside, NAD. Pain controlled to R foot, denies F/V/N/C/SOB/ CP. S/p R foot debridement POD#1, s/p R 4th/5th toe amputation. Afebrile, VSS. OBED: R foot: large post-surgical diabetic ulcer lateral foot with mixed fibrogranular base, exposed extensor tendons and 4th/5th metatarsal shafts, no purulence, no fluctuance, no soft tissue crepitus. Erythema resolving to foot. No ischemic changes to the foot. Minimal tenderness to palpation. WBC: 11.4 OR Cx: beta strep B Imp: 36 year old DM M s/p R foot debridement x 2 and 4th/5th toe amputation for gas-forming infection 1. C/w IV abx per infectious disease 2. Dakins gauze + DSD R foot 3. Partial WB R Heel with surgical shoe 4. Will need rodent exterminator IV abx therapy for treatment of acute osteomyelitis. Discussed treatment options going forward, namely [facility] placement vs. home nursing services. Patient will discuss with his family. Case management aware. Will need wound vac placement and PICC line. 5. Will follow. Manuelito Castaneda DPM
[2017-03-24] MEDS ORDERED: INSULIN (NOVOLOG) ASPART 100 UNITS/ML 10ML VIAL ONE ×2 (12:00→21:35)
--- NOTE | 2017-03-24 12:17 | PN ---
Progress Note (short form) - Note Progress Note: Anesthesiology Post-op POD#1 s/p I+D foot under MAC. Pt. feeling well, tolerating PO, VSS.
--- NOTE | 2017-03-24 13:49 | PN ---
Physical Exam: SUBJECTIVE: Patient seen and examined at bedside. Patient is s/p debridement procedure today. Denies any pain in the foot. Denies chest pain or shortness of breath, fevers or chills. OBJECTIVE: Vital Signs Period Temp Pulse Resp BP Sys/Cedillo Pulse Ox Last 24 Hr 97.9 F-98.9 F 77-91 14-20 109-145/67-81 94-100 GENERAL: NAD, awake, alert, and fully oriented HEENT: NC/AT, No JVD, sclera anicteric, EOMI, DARLINE LUNGS: CTA bilaterally, no wheezes, rhonchi, rales. no accessory muscle use. HEART: RRR, S1, S2 without murmur ABDOMEN: Soft, nontender, nondistended, normoactive bowel sounds, no guarding, no rebound, no hepatomegaly, no masses. EXTREMITIES: 2+ DP pulses, warm, well-perfused, no edema, s/p debridement of R foot 4th/5th digits. Foot is bandaged. Bandage is clean and dry. NEUROLOGICAL: Cranial nerves II through XII grossly intact. Normal speech, gait not observed. PSYCH: Normal mood, normal affect. SKIN: Warm, dry, bandage to R foot noted without any purulence or bloody let- through; wound not visualized today due to impending OR procedure Laboratory Results - last 24 hr 03/23/17 03/23/17 03/24/17 16:07 21:21 06:14 WBC RBC Hgb Hct MCV MCH MCHC RDW Plt Count MPV Neutrophils % Lymphocytes % Monocytes % Eosinophils % Basophils % Sodium Potassium Chloride Carbon Dioxide Anion Gap BUN Creatinine POC Glucometer 139 241 179 Random Glucose Calcium 03/24/17 03/24/17 03/24/17 06:15 06:30 11:43 WBC 11.4 H RBC 4.13 Hgb 12.5 Hct 37.1 MCV 89.8 MCH 30.3 MCHC 33.7 RDW 12.7 Plt Count 480 H D MPV 8.4 D Neutrophils % 69.7 Lymphocytes % 18.7 D Monocytes % 8.3 Eosinophils % 2.3 Basophils % 1.0 Sodium 133 L Potassium 4.6 Chloride 100 Carbon Dioxide 24 Anion Gap 9 BUN 11 D Creatinine 0.6 L D POC Glucometer 251 Random Glucose 173 H D Calcium 8.6 Active Medications Generic Name Dose Route Start Last Admin Trade Name Freq PRN Reason Stop Dose Admin Collagenase 1 applic 03/24/17 10:00 03/24/17 09:22 Santyl - TP Not Given DAILY JERMAINE Heparin Sodium (Porcine) 5,000 unit 03/23/17 22:00 03/24/17 06:21 Heparin - SQ 5,000 unit TID JERMAINE Administration Clindamycin Phosphate 600 mg in 50 mls @ 100 mls/hr 03/23/17 16:30 03/24/17 08:49 Cleocin 600 Mg Premix Ivpb - IVPB 100 mls/hr Q6H-IV JERMAINE Administration Insulin Aspart 1 vial 03/23/17 16:30 03/24/17 12:01 Novolog Vial Sliding Scale - SQ 6 unit ACHS JERMAINE Administration Protocol Insulin Detemir 5 units 03/23/17 22:00 03/23/17 21:23 Levemir Vial SQ 5 unit HS JERMAINE Administration Lactobacillus Acidophilus 1 tab 03/24/17 10:00 03/24/17 09:22 Bacid - PO 1 tab DAILY JERMAINE Administration Lisinopril 5 mg 03/24/17 10:00 03/24/17 09:22 Prinivil PO 5 mg DAILY JERMAINE Administration Ondansetron HCl 4 mg 03/23/17 15:25 Zofran Injection IVPUSH Q6H PRN NAUSEA AND/OR VOMITING Oxycodone HCl 5 mg 03/23/17 15:25 Roxicodone - PO Q4H PRN PAIN LEVEL 1-5 Sodium Hypochlorite 1 applic 03/24/17 10:00 03/24/17 09:24 Dakin's Solution 0.25% (Half-Strength) - TP Not Given DAILY [facility] ASSESSMENT/PLAN: This is a 36yo M with no history found to have R foot cellulitis, fungal infection, and possible osteomyelitis #Osteomyelitis of Right Foot 4th/5th digits -s/p 4th and 5th toe amputation -s/p debridement per Dr. Castaneda -ID on case -Day 5 Rocephin and Clindamycin -Continue Bacid #DM - A1C noted to be 12.6 -BGM ACHS -Diabetic diet -ISS -Continue Levemir 5 HS to continue -Continue Lisinopril 5mg PO QD -Bookkeepers Supervisor counselling prior to discharge necessary #FEN: -No standing fluids -replete lytes as necessary in AM -Restart diabetic diet #PPX: Heparin 5000U SQ TID in anticipation of OR procedure Dispo: Continue to monitor on med-surg Visit type - Emergency Visit Emergency Visit: No - New Patient This patient is new to me today: No - Critical Care Critical Care patient: No
--- NOTE | 2017-03-24 16:17 | PATH ---
Surgical Pathology Report Patient Name: FRANSISCA CHACON Med. Rec. #: [id number] /Age/Gender: 1980 (Age: 36) / M Account: [id number] Location: [facility] MED/SURG Taken: 03/19/2017 Received: 03/23/2017 Reported: 03/24/2017 Physicians: PENNY Ochoa M.D. Specimen(s) Received A: RIGHT FOURTH AND FIFTH TOES B: RIGHT FOOT PROXIMAL BONE Clinical History Gas gangrene right foot Final Diagnosis A. TOES, RIGHT, FOURTH AND FIFTH, AMPUTATION: FOURTH AND FIFTH TOE WITH MARKED ACUTE AND CHRONIC GANGRENOUS INFLAMMATION AND ULCERATION INVOLVING SKIN AND SOFT TISSUE MARGINS. ACUTE OSTEOMYELITIS INVOLVING UNDERLYING BONE AND FOURTH DIGIT SURGICAL MARGIN. FIFTH DIGIT BONE SURGICAL MARGIN IS NEGATIVE FOR ACUTE OSTEOMYELITIS. B. BONE, FOOT, PROXIMAL BONE, RESECTION: BONE AND CARTILAGE WITH DEGENERATIVE CHANGES. SCANT ADIPOSE AND DENSE FIBROCONNECTIVE TISSUE. NO EVIDENCE OF ACUTE OSTEOMYELITIS. Electronically Signed Rosa Barnes M.D. Gross Description A. Received in formalin labeled "right fourth and fifth toe," is a 7.4 x 4.2 x 2.7 cm right fourth and fifth toe amputation. The epidermal surface displays a 4.0 x 3.7 cm ulcerated lesion which appears to involve the skin and soft tissue margin. The lesion extends to and possibly involves the underlying bone. Medical Driver sections are submitted in 5 cassettes as follows: 1-skin lesion; 2-bone underlying lesion, following decalcification; 3-fourth digit bone margin, following decalcification; 4-fifth digit bone margin, following decalcification; 5-skin and soft tissue margin. B. Received in formalin labeled "right foot proximal bone," are 2 pereira, irregular, undesignated portions of bone measuring 2.7 x 1.8 x 1.5 cm and 2.4 x 1.5 x 1.3 cm. Each portion of bone displays smooth articular cartilage at one end and smooth, trabeculated bone at the opposing end, consistent with true bone margins. Medical Driver sections are submitted in 4 cassettes as follows: 1-smaller portion of bone end with articular cartilage, following decalcification; 2-smaller portion of bone end with trabeculated bone (probable true bone margin), following decalcification; 3-larger portion of bone end with articular cartilage, following decalcification; 4-larger portion of bone end with trabeculated bone (probable true bone margin), following decalcification. 03/23/201703/23/2017
--- NOTE | 2017-03-24 16:56 | PN ---
Teaching Attending Note Name of Resident: Edu Bowles ATTENDING PHYSICIAN STATEMENT Time of evaluation: 11:20 Am I saw and evaluated the patient. I reviewed the resident's note and discussed the case with the resident. I agree with the resident's findings and plan as documented. SUBJECTIVE: Patient seen and examined. no complaints. OBJECTIVE: Vital Signs Period Temp Pulse Resp BP Sys/Cedillo Pulse Ox Last 24 Hr 98.1 F-98.9 F 82-91 20-20 121-145/70-81 97-99 Intake & Output 03/21/17 03/22/17 03/23/17 03/24/17 23:59 23:59 23:59 23:59 Intake Total 1083 832 7450 550 Balance 5584 510 4847 550 General: sitting in chair in no acute distress Extremities: right foot dressing with surgical shoe, no surrounding erythema Active Medications Generic Name Dose Route Start Last Admin Trade Name Freq PRN Reason Stop Dose Admin Collagenase 1 applic 03/24/17 10:00 03/24/17 09:22 Santyl - TP Not Given DAILY JERMAINE Heparin Sodium (Porcine) 5,000 unit 03/23/17 22:00 03/24/17 14:11 Heparin - SQ 5,000 unit TID JERMAINE Administration Clindamycin Phosphate 600 mg in 50 mls @ 100 mls/hr 03/23/17 16:30 03/24/17 15:23 Cleocin 600 Mg Premix Ivpb - IVPB 100 mls/hr Q6H-IV JERMAINE Administration Insulin Aspart 1 vial 03/23/17 16:30 03/24/17 12:01 Novolog Vial Sliding Scale - SQ 6 unit ACHS JERMAINE Administration Protocol Insulin Detemir 5 units 03/23/17 22:00 03/23/17 21:23 Levemir Vial SQ 5 unit HS JERMAINE Administration Lactobacillus Acidophilus 1 tab 03/24/17 10:00 03/24/17 09:22 Bacid - PO 1 tab DAILY JERMAINE Administration Lisinopril 5 mg 03/24/17 10:00 03/24/17 09:22 Prinivil PO 5 mg DAILY JERMAINE Administration Ondansetron HCl 4 mg 03/23/17 15:25 Zofran Injection IVPUSH Q6H PRN NAUSEA AND/OR VOMITING Oxycodone HCl 5 mg 03/23/17 15:25 Roxicodone - PO Q4H PRN PAIN LEVEL 1-5 Sodium Hypochlorite 1 applic 03/24/17 10:00 03/24/17 09:24 Dakin's Solution 0.25% (Half-Strength) - TP Not Given DAILY JERMAINE Laboratory Results - last 24 hr 03/23/17 03/23/17 03/24/17 16:07 21:21 06:14 WBC RBC Hgb Hct MCV MCH MCHC RDW Plt Count MPV Neutrophils % Lymphocytes % Monocytes % Eosinophils % Basophils % Sodium Potassium Chloride Carbon Dioxide Anion Gap BUN Creatinine POC Glucometer 139 241 179 Random Glucose Calcium 03/24/17 03/24/17 03/24/17 06:15 06:30 11:43 WBC 11.4 H RBC 4.13 Hgb 12.5 Hct 37.1 MCV 89.8 MCH 30.3 MCHC 33.7 RDW 12.7 Plt Count 480 H D MPV 8.4 D Neutrophils % 69.7 Lymphocytes % 18.7 D Monocytes % 8.3 Eosinophils % 2.3 Basophils % 1.0 Sodium 133 L Potassium 4.6 Chloride 100 Carbon Dioxide 24 Anion Gap 9 BUN 11 D Creatinine 0.6 L D POC Glucometer 251 Random Glucose 173 H D Calcium 8.6 Microbiology 03/19/17 19:20 Bone Gram Stain - Final 03/19/17 19:20 Bone Tissue Culture - Final Strep Agalactiae Group B 03/19/17 19:20 Bone Anaerobic Culture - Final NO ANAEROBES WERE ISOLATED 03/17/17 19:25 Blood - Peripheral Venous Blood Culture - Final NO GROWTH AFTER 5 DAYS INCUBATION 03/17/17 19:25 Blood - Peripheral Venous Blood Culture - Final NO GROWTH AFTER 5 DAYS INCUBATION 03/19/17 19:20 Foot - Right Gram Stain - Final 03/19/17 19:20 Foot - Right Wound Culture - Final Strep Agalactiae Group B 03/18/17 04:30 Foot - Right Gram Stain - Final 03/18/17 04:30 Foot - Right Wound Culture - Final Strep Agalactiae Group B 03/18/17 04:30 Urine - Urine Clean Catch Urine Culture - Final NO GROWTH OBTAINED ASSESSMENT AND PLAN: 36yo M with PMH DM (not on medications) presented to the ER with R foot ulcer -Sepsis due to Right foot OM 4th and 5th digit s/p debridement/lavage with 4th/ 5th digit amputation right foot 03/19 and debridement 03/23/17 -IDDM -HTN Plan: Ceftriaxone and clindamycin day 7. Contniue abcid. Will need correction antibiotics. Wound care instructions and podiatry input noted. Vascular input appreciated. pain control. encouraged to get out of bed and ambulate with heel of shoe. podiatry recommended HBO therapy however unclear if pt has insurance or not. requested pt to have bring paperwork. will be unable to afford if has no insurance A1c 12. levemir 5 untis HS, ISS, diabetic education, insulin training. Lisinopril 5 mg daily DVTPPX with heparin. Dispo pending social and case management input for outpatient IV antibiotics.
[2017-03-24] MEDS: INSULIN DETEMIR 100 UNITS/ML MDV SQ SCH (21:30)
[2017-03-25] MEDS: CLINDAMYCIN 600MG PREMIX IVPB 600 MG/50 ML BAG IVPB SCH ×4 (03:45→21:27)
[2017-03-25] MEDS: INSULIN SLIDING SCALE (NOVOLOG) 1 VIAL SQ SCH ×4 (06:05→21:35)
[2017-03-25] MEDS: HEPARIN NA (PORCINE) 5,000 UNITS/ML 1ML VIAL SQ SCH ×3 (06:05→21:33)
--- NOTE | 2017-03-25 07:02 | PN ---
Physical Exam: SUBJECTIVE: No acute events overnight. Pt has slight pain on foot, but is bearable. Denies fever/chills, diarrhea, abdominal pain and decreased LE sensation OBJECTIVE: Vital Signs Period Temp Pulse Resp BP Sys/Cedillo Pulse Ox Last 24 Hr 98.4 F-99.4 F 84-96 20-20 121-139/70-80 99-100 GENERAL: NAD, awake, alert, and fully oriented HEENT: NC/AT, No JVD, sclera anicteric, EOMI, DARLINE LUNGS: CTA bilaterally, no wheezes, rhonchi, rales. no accessory muscle use. HEART: RRR, S1, S2 without murmur ABDOMEN: Soft, nontender, nondistended, normoactive bowel sounds, no guarding, no rebound, no hepatomegaly, no masses. EXTREMITIES: 2+ DP pulses, warm, well-perfused, no edema, pt retains ability to move toes, sensation intact at toe-tips, cap refill <2sec NEUROLOGICAL: Cranial nerves II through XII grossly intact. Normal speech, gait not observed. PSYCH: Normal mood, normal affect. SKIN: Warm, dry, bandage to R foot noted without any purulence or bloody let- through; wound not visualized today due to impending OR procedure Laboratory Results - last 24 hr 03/24/17 03/24/17 03/24/17 06:14 06:15 06:30 WBC 11.4 H RBC 4.13 Hgb 12.5 Hct 37.1 MCV 89.8 MCH 30.3 MCHC 33.7 RDW 12.7 Plt Count 480 H D MPV 8.4 D Neutrophils % 69.7 Lymphocytes % 18.7 D Monocytes % 8.3 Eosinophils % 2.3 Basophils % 1.0 Sodium 133 L Potassium 4.6 Chloride 100 Carbon Dioxide 24 Anion Gap 9 BUN 11 D Creatinine 0.6 L D POC Glucometer 179 Random Glucose 173 H D Calcium 8.6 03/24/17 03/24/17 03/24/17 11:43 16:50 21:32 WBC RBC Hgb Hct MCV MCH MCHC RDW Plt Count MPV Neutrophils % Lymphocytes % Monocytes % Eosinophils % Basophils % Sodium Potassium Chloride Carbon Dioxide Anion Gap BUN Creatinine POC Glucometer 251 214 264 Random Glucose Calcium 03/25/17 06:04 WBC RBC Hgb Hct MCV MCH MCHC RDW Plt Count MPV Neutrophils % Lymphocytes % Monocytes % Eosinophils % Basophils % Sodium Potassium Chloride Carbon Dioxide Anion Gap BUN Creatinine POC Glucometer 173 Random Glucose Calcium Active Medications Generic Name Dose Route Start Last Admin Trade Name [place] PRN Reason Stop Dose Admin Collagenase 1 applic 03/24/17 10:00 03/24/17 09:22 Santyl - TP Not Given DAILY JERMAINE Heparin Sodium (Porcine) 5,000 unit 03/23/17 22:00 03/25/17 06:05 Heparin - SQ 5,000 unit TID JERMAINE Administration Clindamycin Phosphate 600 mg in 50 mls @ 100 mls/hr 03/23/17 16:30 03/25/17 03:45 Cleocin 600 Mg Premix Ivpb - IVPB 100 mls/hr Q6H-IV JERMAINE Administration Insulin Aspart 1 vial 03/23/17 16:30 03/25/17 06:05 Novolog Vial Sliding Scale - SQ 2 unit ACHS JERMAINE Administration Protocol Insulin Detemir 5 units 03/23/17 22:00 03/24/17 21:30 Levemir Vial SQ 5 unit HS JERMAINE Administration Lactobacillus Acidophilus 1 tab 03/24/17 10:00 03/24/17 09:22 Bacid - PO 1 tab DAILY JERMAINE Administration Lisinopril 5 mg 03/24/17 10:00 03/24/17 09:22 Prinivil PO 5 mg DAILY JERMAINE Administration Ondansetron HCl 4 mg 03/23/17 15:25 Zofran Injection IVPUSH Q6H PRN NAUSEA AND/OR VOMITING Oxycodone HCl 5 mg 03/23/17 15:25 Roxicodone - PO Q4H PRN PAIN LEVEL 1-5 Sodium Hypochlorite 1 applic 03/24/17 10:00 03/24/17 09:24 Dakin's Solution 0.25% (Half-Strength) - TP Not Given DAILY [facility] ASSESSMENT/PLAN: 36yo M with no history found to have R foot cellulitis, fungal infection, and possible osteomyelitis 1) R foot 4th and 5th toe infection with osteomyelitis --s/p 4th and 5th toe amputation --s/p debridement yesterday --Cultures noted and reviewed --Will most likely need long-term antibiotic therapy --Podiatry on board --Recommended HBO therapy however insurance may be problematic for patient --ID on case --Day 8 Rocephin and Clindamycin --Continue Bacid --Will need long-term IV antibiotics however limited due to only having emergency medicaid --[facility] note reviewed --Pt's family gets off work at 5 and he does not own a car to come here for the infusions if need be --Will discuss for dispo plan 2) DM --A1C 12.6 --BGM ACHS --Diabetic diet --ISS --Levemir 4U BID due to afternoon sugars being elevated --Oil Lease Broker counselling prior to discharge necessary --Lisinopril 5mg PO qDaily FEN: Fluids: None currently Electrolyte Abnormalities: None currently Nutrition: Diabetic diet PPX: DVt - Holding Heparin 5000U SQ TID in anticipation of OR procedure Dispo: Pt needs long-term IV abx; emergency medicaid coverage; will discuss with interdisciplinary team for long-term plan Case discussed with Dr. Sonia Lopes, DO - Internal Medicine PGY-1 Visit type - Emergency Visit Emergency Visit: No - New Patient This patient is new to me today: No - Critical Care Critical Care patient: No
[2017-03-25 08:03] LABS: HEMATOCRIT 37.6 % (35.4-49); HEMOGLOBIN 12.5 GM/dL (11.7-16.9); MCHC 33.2 g/dl (32.0-35.9); MEAN CELL VOLUME 90.4 fl (80-96); MEAN PLT VOLUME 8.7 fl (7.5-11.1); PLATELET COUNT 525 K/MM3 (134-434); RBC 4.16 M/mm3 (4.00-5.60); RDW 12.7 % (11.9-15.9); WHITE BLOOD COUNT 10.9 K/mm3 (4.0-10.0)
[2017-03-25 08:14] LABS: ANION GAP 10 (8-16); BLOOD UREA NITROGEN 15 mg/dL (7-18); CALCIUM 8.7 mg/dL (8.5-10.1); CHLORIDE 101 mmol/L (98-107); CO2 25 mmol/L (21-32); CREATININE 0.6 mg/dL (0.7-1.3); GLUCOSE,RANDOM 159 mg/dL (74-106); POTASSIUM 4.8 mmol/L (3.5-5.1); SODIUM 136 mmol/L (136-145)
[2017-03-25] MEDS: COLLAGENASE CLOSTRIDIUM HIST. 30 GRAMS TUBE TP SCH (09:57)
[2017-03-25] MEDS: CEFTRIAXONE IN IS-OSM DEXTROSE 2 GM/50 ML BAG IVPB SCH (09:57)
[2017-03-25] MEDS: LISINOPRIL 5 MG TABLET (FP) PO SCH (09:57)
[2017-03-25] MEDS: LACTOBACILLUS ACIDOPHILUS 1 EACH TAB (FP) PO SCH (09:57)
[2017-03-25] MEDS: SODIUM HYPOCHLORITE 0.25%- 473 ML BULK BOTTLE TP SCH (11:34)
--- NOTE | 2017-03-25 15:00 | PN ---
Teaching Attending Note Name of Resident: Edu Lopes ATTENDING PHYSICIAN STATEMENT time of evaluation: 10:40 AM I saw and evaluated the patient. I reviewed the resident's note and discussed the case with the resident. I agree with the resident's findings and plan as documented. SUBJECTIVE: Patient seen and examined. No new complaints. Overall feels well OBJECTIVE: Vital Signs Period Temp Pulse Resp BP Sys/Cedillo Pulse Ox Last 24 Hr 97.8 F-99.4 F 84-96 20-20 96-139/58-80 100 Intake & Output 03/22/17 03/23/17 03/24/17 03/25/17 23:59 23:59 23:59 23:59 Intake Total 650 1050 900 150 Balance 650 1050 900 150 General: sitting in bed in no acute distress Extremities: examined with dressing removal large post-surgical diabetic ulcer lateral foot with mixed fibrogranular base, exposed extensor tendons and 4th/ 5th metatarsal shafts. Erythema resolving to foot. Active Medications Generic Name Dose Route Start Last Admin Trade Name Freq PRN Reason Stop Dose Admin Collagenase 1 applic 03/24/17 10:00 03/25/17 09:57 Santyl - TP 1 applic DAILY JERMAINE Administration Heparin Sodium (Porcine) 5,000 unit 03/23/17 22:00 03/25/17 14:22 Heparin - SQ 5,000 unit TID JERMAINE Administration Clindamycin Phosphate 600 mg in 50 mls @ 100 mls/hr 03/23/17 16:30 03/25/17 14:22 Cleocin 600 Mg Premix Ivpb - IVPB 100 mls/hr Q6H-IV JERMAINE Administration CEFTRIAXONE IN IS-OSM DEXTROSE 2 gm in 50 mls @ 100 mls/hr 03/25/17 10:00 07/07 09:57 Ceftriaxone 2 Gm-D5w Bag IVPB 100 mls/hr DAILY JERMAINE Administration Insulin Aspart 1 vial 03/23/17 16:30 03/25/17 11:11 Novolog Vial Sliding Scale - SQ 2 unit ACHS JERMAINE Administration Protocol Insulin Detemir 4 units 03/25/17 22:00 Levemir Vial SQ BIDI@0700,2200 JERMAINE Lactobacillus Acidophilus 1 tab 03/24/17 10:00 03/25/17 09:57 Bacid - PO 1 tab DAILY JERMAINE Administration Lisinopril 5 mg 03/24/17 10:00 03/25/17 09:57 Prinivil PO Not Given DAILY [facility] Ondansetron HCl 4 mg 03/23/17 15:25 Zofran Injection IVPUSH Q6H PRN NAUSEA AND/OR VOMITING Oxycodone HCl 5 mg 03/23/17 15:25 Roxicodone - PO Q4H PRN PAIN LEVEL 1-5 Sodium Hypochlorite 1 applic 03/24/17 10:00 03/25/17 11:34 Dakin's Solution 0.25% (Half-Strength) - TP 1 applic DAILY [facility] Administration Laboratory Results - last 24 hr 03/24/17 03/24/17 03/25/17 16:50 21:32 06:00 WBC 10.9 H RBC 4.16 Hgb 12.5 Hct 37.6 MCV 90.4 MCH 30.0 MCHC 33.2 RDW 12.7 Plt Count 525 H MPV 8.7 Sodium Potassium Chloride Carbon Dioxide Anion Gap BUN Creatinine POC Glucometer 214 264 Random Glucose Calcium 03/25/17 03/25/17 03/25/17 06:00 06:04 11:04 WBC RBC Hgb Hct MCV MCH MCHC RDW Plt Count MPV Sodium 136 Potassium 4.8 Chloride 101 Carbon Dioxide 25 Anion Gap 10 BUN 15 D Creatinine 0.6 L POC Glucometer 173 199 Random Glucose 159 H Calcium 8.7 Microbiology 03/19/17 19:20 Bone Gram Stain - Final 03/19/17 19:20 Bone Tissue Culture - Final Strep Agalactiae Group B 03/19/17 19:20 Bone Anaerobic Culture - Final NO ANAEROBES WERE ISOLATED 03/17/17 19:25 Blood - Peripheral Venous Blood Culture - Final NO GROWTH AFTER 5 DAYS INCUBATION 03/17/17 19:25 Blood - Peripheral Venous Blood Culture - Final NO GROWTH AFTER 5 DAYS INCUBATION 03/19/17 19:20 Foot - Right Gram Stain - Final 03/19/17 19:20 Foot - Right Wound Culture - Final Strep Agalactiae Group B 03/18/17 04:30 Foot - Right Gram Stain - Final 03/18/17 04:30 Foot - Right Wound Culture - Final Strep Agalactiae Group B 03/18/17 04:30 Urine - Urine Clean Catch Urine Culture - Final NO GROWTH OBTAINED ASSESSMENT AND PLAN: 36yo M with PMH DM (not on medications) presented to the ER with R foot ulcer -Sepsis due to Right foot OM 4th and 5th digit s/p debridement/lavage with 4th/ 5th digit amputation right foot 03/19 and debridement 03/23/17 -IDDM -HTN Plan: Ceftriaxone and clindamycin day 8. Contniue bacid. Will need terminal clerk antibiotics. Wound care instructions and podiatry input noted. Vascular input appreciated. pain control. encouraged to get out of bed and ambulate with heel of shoe. podiatry recommended HBO therapy however unclear if pt has insurance or not. requested pt to have bring paperwork. will be unable to afford if has no insurance A1c 12.increase levemir to 4 units BID, ISS, diabetic education, insulin training. Lisinopril 5 mg daily DVTPPX with heparin. Dispo pending social and case management input for outpatient IV antibiotics.
[2017-03-25] MEDS ORDERED: INSULIN (NOVOLOG) ASPART 100 UNITS/ML 10ML VIAL ONE ×2 (17:10→17:42)
[2017-03-25] MEDS: INSULIN DETEMIR 100 UNITS/ML MDV SQ SCH (21:34)
[2017-03-26] MEDS: CLINDAMYCIN 600MG PREMIX IVPB 600 MG/50 ML BAG IVPB SCH ×2 (02:16→09:24)
[2017-03-26] MEDS: INSULIN DETEMIR 100 UNITS/ML MDV SQ SCH ×2 (06:37→22:56)
[2017-03-26] MEDS: HEPARIN NA (PORCINE) 5,000 UNITS/ML 1ML VIAL SQ SCH ×3 (06:37→22:55)
[2017-03-26] MEDS: INSULIN SLIDING SCALE (NOVOLOG) 1 VIAL SQ SCH ×4 (06:38→22:55)
[2017-03-26] MEDS: LISINOPRIL 5 MG TABLET (FP) PO SCH (09:24)
[2017-03-26] MEDS: LACTOBACILLUS ACIDOPHILUS 1 EACH TAB (FP) PO SCH (09:24)
[2017-03-26] MEDS: SODIUM HYPOCHLORITE 0.25%- 473 ML BULK BOTTLE TP SCH (09:24)
[2017-03-26] MEDS: CEFTRIAXONE IN IS-OSM DEXTROSE 2 GM/50 ML BAG IVPB SCH (09:24)
[2017-03-26] MEDS: COLLAGENASE CLOSTRIDIUM HIST. 30 GRAMS TUBE TP SCH (09:24)
--- NOTE | 2017-03-26 11:33 | PN ---
Progress Note, Physician History of Present Illness: S/P debridement R foot/ amputation of toes No c/o pain Afebrile WBC improved - Current Medication List Current Medications: Active Medications Collagenase (Santyl -) 1 applic TP DAILY [facility] Last Admin: 03/26/17 09:24 Dose: 1 applic Heparin Sodium (Porcine) (Heparin -) 5,000 unit SQ TID [facility] Last Admin: 03/26/17 06:37 Dose: 5,000 unit CEFTRIAXONE IN IS-OSM DEXTROSE (Ceftriaxone 2 Gm-D5w Bag) 2 gm in 50 mls @ 100 mls/hr IVPB DAILY [facility] Last Admin: 03/26/17 09:24 Dose: 100 mls/hr Insulin Aspart (Novolog Vial Sliding Scale -) 1 vial SQ ACHS [facility] PRN Reason: Protocol Last Admin: 03/26/17 06:38 Dose: 4 unit Insulin Detemir (Levemir Vial) 4 units SQ BIDI@0700,2200 [facility] Last Admin: 03/26/17 06:37 Dose: 4 units Lactobacillus Acidophilus (Bacid -) 1 tab PO DAILY [facility] Last Admin: 03/26/17 09:24 Dose: 1 tab Lisinopril (Prinivil) 5 mg PO DAILY [facility] Last Admin: 03/26/17 09:24 Dose: 5 mg Ondansetron HCl (Zofran Injection) 4 mg IVPUSH Q6H PRN PRN Reason: NAUSEA AND/OR VOMITING Oxycodone HCl (Roxicodone -) 5 mg PO Q4H PRN PRN Reason: PAIN LEVEL 1-5 Sodium Hypochlorite (Dakin's Solution 0.25% (Half-Strength) -) 1 applic TP DAILY [facility] Last Admin: 03/26/17 09:24 Dose: 1 applic - Objective Vital Signs: Vital Signs Temperature 98.5 F 03/26/17 09:16 Pulse Rate 98 H 03/26/17 09:16 Respiratory Rate 20 03/26/17 09:16 Blood Pressure 118/63 03/26/17 09:16 O2 Sat by Pulse Oximetry (%) 97 03/25/17 21:00 Constitutional: Yes: No Distress Eyes: Yes: Conjunctiva Clear Cardiovascular: Yes: Regular Rate and Rhythm, S1, S2 Respiratory: Yes: CTA Bilaterally Gastrointestinal: Yes: Normal Bowel Sounds, Soft. No: Tenderness Extremities: Yes: Other (Foot wound with necrotic tissue No drainage or foul odor) Labs: CBC, BMP 03/25/17 06:00 03/25/17 06:00 INR, PTT INR 1.14 (0.82-1.09) 03/19/17 06:30 Assessment/Plan Post op toe amputation, debridement R foot POD #7 + wound cultures grp B strep Diabetes mellitus Continue ceftriaxone D/C clindamycin Pathology report indicates infected bone extends to surgical margin. Will need additional 3-5 w IV antibiotic therapy (6w total antibiotic course; possible switch to po for last 2w depending on clinical response) PICC for outpatient antibiotics Repeat ESR CRP
[2017-03-26] MEDS ORDERED: PICC LINE 8 ML FLUSH PROTOCOL IVPUSH PRN (15:04)
--- NOTE | 2017-03-26 17:50 | PN ---
Teaching Attending Note Name of Resident: Edu Lopes ATTENDING PHYSICIAN STATEMENT Time of evaluation: 11;15 AM I saw and evaluated the patient. I reviewed the resident's note and discussed the case with the resident. I agree with the resident's findings and plan as documented. SUBJECTIVE: Patient seen and examined, no concerns. OBJECTIVE: Vital Signs Period Temp Pulse Resp BP Sys/Cedillo Pulse Ox Last 24 Hr 97.9 F-99.2 F 81-98 18-20 104-137/63-89 97 Intake & Output 03/23/17 03/24/17 03/25/17 03/26/17 23:59 23:59 23:59 23:59 Intake Total 9832 219 0403 850 Balance 5969 050 6775 850 General: sitting in bed in no acute distress Extremities: right foot dressing Active Medications Generic Name Dose Route Start Last Admin Trade Name Freq PRN Reason Stop Dose Admin Collagenase 1 applic 03/24/17 10:00 03/26/17 09:24 Santyl - TP 1 applic DAILY JERMAINE Administration Heparin Sodium (Porcine) 5,000 unit 03/23/17 22:00 03/26/17 15:00 Heparin - SQ 5,000 unit TID JERMAINE Administration IV Flush 8 ml 03/26/17 15:04 Picc Line Flush IVPUSH PRN PRN Protocol CEFTRIAXONE IN IS-OSM DEXTROSE 2 gm in 50 mls @ 100 mls/hr 03/25/17 10:00 08/06 09:24 Ceftriaxone 2 Gm-D5w Bag IVPB 100 mls/hr DAILY JERMAINE Administration Insulin Aspart 1 vial 03/23/17 16:30 03/26/17 17:00 Novolog Vial Sliding Scale - SQ 4 unit ACHS JERMAINE Administration Protocol Insulin Detemir 4 units 03/25/17 22:00 03/26/17 06:37 Levemir Vial SQ 4 units BIDI@0700,2200 JERMAINE Administration Lactobacillus Acidophilus 1 tab 03/24/17 10:00 03/26/17 09:24 Bacid - PO 1 tab DAILY JERMAINE Administration Lisinopril 5 mg 03/24/17 10:00 03/26/17 09:24 Prinivil PO 5 mg DAILY JERMAINE Administration Ondansetron HCl 4 mg 03/23/17 15:25 Zofran Injection IVPUSH Q6H PRN NAUSEA AND/OR VOMITING Sodium Hypochlorite 1 applic 03/24/17 10:00 03/26/17 09:24 Dakin's Solution 0.25% (Half-Strength) - TP 1 applic DAILY JERMAINE Administration Laboratory Results - last 24 hr 03/25/17 03/25/17 03/26/17 16:44 21:32 06:36 POC Glucometer 232 293 221 03/26/17 11:33 POC Glucometer 243 Microbiology 03/19/17 19:20 Bone Gram Stain - Final 03/19/17 19:20 Bone Tissue Culture - Final Strep Agalactiae Group B 03/19/17 19:20 Bone Anaerobic Culture - Final NO ANAEROBES WERE ISOLATED 03/17/17 19:25 Blood - Peripheral Venous Blood Culture - Final NO GROWTH AFTER 5 DAYS INCUBATION 03/17/17 19:25 Blood - Peripheral Venous Blood Culture - Final NO GROWTH AFTER 5 DAYS INCUBATION 03/19/17 19:20 Foot - Right Gram Stain - Final 03/19/17 19:20 Foot - Right Wound Culture - Final Strep Agalactiae Group B 03/18/17 04:30 Foot - Right Gram Stain - Final 03/18/17 04:30 Foot - Right Wound Culture - Final Strep Agalactiae Group B 03/18/17 04:30 Urine - Urine Clean Catch Urine Culture - Final NO GROWTH OBTAINED ASSESSMENT AND PLAN: 36yo M with PMH DM (not on medications) presented to the ER with R foot ulcer -Sepsis due to Right foot OM 4th and 5th digit s/p debridement/lavage with 4th/ 5th digit amputation right foot 03/19 and debridement 03/23/17 -Acute Strep B agalactie osteomyelitis (bone cultures positive) -IDDM -HTN Plan: Ceftriaxone and clindamycin day 9, ID input noted, Clindamycin d/gabbie.Plan for total 6 weeks of antibiotics. Contniue bacid. Wound care instructions and podiatry input noted. Vascular input appreciated. pain control. encouraged to get out of bed and ambulate with heel of shoe. podiatry recommended HBO therapy however unclear if pt has insurance or not. requested pt to have bring paperwork. will be unable to afford if has no insurance A1c 12. levemir to 4 units BID, ISS, diabetic education, insulin training. Lisinopril 5 mg daily Wound care instructions with patient and family. PICC line placed. [place] pharmacy will be contacted to change meds and insulin to affordable options. Outpatient IV antibiotic arrangements have been made. DVTPPX with heparin. Dispo plan for d/c in 24 hours once above arrangements made. Medical clinical appointment set for Wednesday03/29/2016.
--- NOTE | 2017-03-26 20:36 | PN ---
Physical Exam: SUBJECTIVE: Patient seen and examined earlier in morning. No acute events. No new complaints OBJECTIVE: Vital Signs Period Temp Pulse Resp BP Sys/Cedillo Pulse Ox Last 24 Hr 97.9 F-99.2 F 81-98 18-20 104-121/63-77 97-97 GENERAL: NAD, awake, alert, and fully oriented HEENT: NC/AT, No JVD, sclera anicteric, EOMI, DARLINE LUNGS: CTA bilaterally, no wheezes, rhonchi, rales. no accessory muscle use. HEART: RRR, S1, S2 without murmur ABDOMEN: Soft, nontender, nondistended, normoactive bowel sounds, no guarding, no rebound, no hepatomegaly, no masses. EXTREMITIES: 2+ DP pulses, warm, well-perfused, no edema, pt retains ability to move toes, sensation intact at toe-tips, cap refill <2sec NEUROLOGICAL: Cranial nerves II through XII grossly intact. Normal speech, gait not observed. PSYCH: Normal mood, normal affect. SKIN: Warm, dry, bandage to R foot noted without any purulence or bloody let- through; wound not visualized today Laboratory Results - last 24 hr 03/25/17 03/25/17 03/26/17 16:44 21:32 06:36 POC Glucometer 232 293 221 03/26/17 03/26/17 11:33 17:32 POC Glucometer 243 202 Active Medications Generic Name Dose Route Start Last Admin Trade Name Freq PRN Reason Stop Dose Admin Collagenase 1 applic 03/24/17 10:00 03/26/17 09:24 Santyl - TP 1 applic DAILY JERMAINE Administration Heparin Sodium (Porcine) 5,000 unit 03/23/17 22:00 03/26/17 15:00 Heparin - SQ 5,000 unit TID JERMAINE Administration IV Flush 8 ml 03/26/17 15:04 Picc Line Flush IVPUSH PRN PRN Protocol CEFTRIAXONE IN IS-OSM DEXTROSE 2 gm in 50 mls @ 100 mls/hr 03/25/17 10:00 08/06 09:24 Ceftriaxone 2 Gm-D5w Bag IVPB 100 mls/hr DAILY JERMAINE Administration Insulin Aspart 1 vial 03/23/17 16:30 03/26/17 17:00 Novolog Vial Sliding Scale - SQ 4 unit ACHS JERMAINE Administration Protocol Insulin Detemir 4 units 03/25/17 22:00 03/26/17 06:37 Levemir Vial SQ 4 units BIDI@0700,2200 JERMAINE Administration Lactobacillus Acidophilus 1 tab 03/24/17 10:00 03/26/17 09:24 Bacid - PO 1 tab DAILY JERMAINE Administration Lisinopril 5 mg 03/24/17 10:00 03/26/17 09:24 Prinivil PO 5 mg DAILY JERMAINE Administration Ondansetron HCl 4 mg 03/23/17 15:25 Zofran Injection IVPUSH Q6H PRN NAUSEA AND/OR VOMITING Sodium Hypochlorite 1 applic 03/24/17 10:00 03/26/17 09:24 Dakin's Solution 0.25% (Half-Strength) - TP 1 applic DAILY JERMAINE Administration ASSESSMENT/PLAN: 36yo M with no history found to have R foot cellulitis, fungal infection, and possible osteomyelitis 1) R foot 4th and 5th toe infection with osteomyelitis --s/p 4th and 5th toe amputation --s/p debridement --Cultures noted and reviewed --Podiatry on board --Recommended HBO therapy however insurance may be problematic for patient --ID on case --Day 9 Rocephin; will need 6 weeks total --Per ID can d/c clindamycin --Continue Bacid --Wound care explained and taught to pt and family --IV infusion site accepted 2) DM --A1C 12.6 --BGM ACHS --Diabetic diet --ISS --Levemir 4U BID due to afternoon sugars being elevated --Lisinopril 5mg PO qDaily FEN: Fluids: None currently Electrolyte Abnormalities: None currently Nutrition: Diabetic diet PPX: DVt - Heparin 5000U SQ TID Dispo: Dispo planning; PICC line placed; will refer to [facility] for discount on medications due to financial problems; will anticipate discharge tomorrow Case discussed with Dr. Sonia Lopes, DO - Internal Medicine PGY-1 Visit type - Emergency Visit Emergency Visit: No - New Patient This patient is new to me today: No - Critical Care Critical Care patient: No
[2017-03-27] MEDS: HEPARIN NA (PORCINE) 5,000 UNITS/ML 1ML VIAL SQ SCH (06:14)
[2017-03-27] MEDS: INSULIN SLIDING SCALE (NOVOLOG) 1 VIAL SQ SCH ×2 (06:14→11:45)
[2017-03-27] MEDS: INSULIN DETEMIR 100 UNITS/ML MDV SQ SCH (06:15)
[2017-03-27] MEDS: SODIUM HYPOCHLORITE 0.25%- 473 ML BULK BOTTLE TP SCH (09:06)
[2017-03-27] MEDS: COLLAGENASE CLOSTRIDIUM HIST. 30 GRAMS TUBE TP SCH (09:06)
[2017-03-27] MEDS: LISINOPRIL 5 MG TABLET (FP) PO SCH (09:06)
[2017-03-27] MEDS: CEFTRIAXONE IN IS-OSM DEXTROSE 2 GM/50 ML BAG IVPB SCH (09:06)
[2017-03-27] MEDS: LACTOBACILLUS ACIDOPHILUS 1 EACH TAB (FP) PO SCH (09:06)
--- NOTE | 2017-03-27 12:22 | PN ---
Teaching Attending Note Name of Resident: Edu Lopes ATTENDING PHYSICIAN STATEMENT Time of evaluation: 8:30 AM I saw and evaluated the patient. I reviewed the resident's note and discussed the case with the resident. I agree with the resident's findings and plan as documented. SUBJECTIVE: Patient seen and examined, no complaints. OBJECTIVE: Vital Signs Period Temp Pulse Resp BP Sys/Cedillo Pulse Ox Last 24 Hr 97.3 F-99.1 F 86-93 18-20 104-124/57-74 98-99 Intake & Output 03/24/17 03/25/17 03/26/17 03/27/17 23:59 23:59 23:59 23:59 Intake Total 900 1000 1000 300 Balance 900 1000 1000 300 General: sitting in bed in no acute distress Extremities: right foot dressing, no new findings Active Medications Generic Name Dose Route Start Last Admin Trade Name Freq PRN Reason Stop Dose Admin Collagenase 1 applic 03/24/17 10:00 03/27/17 09:06 Santyl - TP 1 applic DAILY JERMAINE Administration Heparin Sodium (Porcine) 5,000 unit 03/23/17 22:00 03/27/17 06:14 Heparin - SQ 5,000 unit TID JERMAINE Administration IV Flush 8 ml 03/26/17 15:04 Picc Line Flush IVPUSH PRN PRN Protocol CEFTRIAXONE IN IS-OSM DEXTROSE 2 gm in 50 mls @ 100 mls/hr 03/25/17 10:00 09/06 09:06 Ceftriaxone 2 Gm-D5w Bag IVPB 100 mls/hr DAILY JERMAINE Administration Insulin Aspart 1 vial 03/23/17 16:30 03/27/17 11:45 Novolog Vial Sliding Scale - SQ 6 unit ACHS JERMAINE Administration Protocol Insulin Detemir 4 units 03/25/17 22:00 03/27/17 06:15 Levemir Vial SQ 4 units BIDI@0700,2200 JERMAINE Administration Lactobacillus Acidophilus 1 tab 03/24/17 10:00 03/27/17 09:06 Bacid - PO 1 tab DAILY JERMAINE Administration Lisinopril 5 mg 03/24/17 10:00 03/27/17 09:06 Prinivil PO 5 mg DAILY JERMAINE Administration Ondansetron HCl 4 mg 03/23/17 15:25 Zofran Injection IVPUSH Q6H PRN NAUSEA AND/OR VOMITING Sodium Hypochlorite 1 applic 03/24/17 10:00 03/27/17 09:06 Dakin's Solution 0.25% (Half-Strength) - TP 1 applic DAILY JERMAINE Administration Laboratory Results - last 24 hr 03/26/17 03/26/17 03/27/17 17:32 20:36 06:10 ESR POC Glucometer 202 269 160 C-Reactive Protein 03/27/17 03/27/17 03/27/17 06:20 06:20 11:41 ESR 92 H POC Glucometer 274 C-Reactive Protein 10.3 H D Microbiology 03/19/17 19:20 Bone Gram Stain - Final 03/19/17 19:20 Bone Tissue Culture - Final Strep Agalactiae Group B 03/19/17 19:20 Bone Anaerobic Culture - Final NO ANAEROBES WERE ISOLATED 03/17/17 19:25 Blood - Peripheral Venous Blood Culture - Final NO GROWTH AFTER 5 DAYS INCUBATION 03/17/17 19:25 Blood - Peripheral Venous Blood Culture - Final NO GROWTH AFTER 5 DAYS INCUBATION 03/19/17 19:20 Foot - Right Gram Stain - Final 03/19/17 19:20 Foot - Right Wound Culture - Final Strep Agalactiae Group B 03/18/17 04:30 Foot - Right Gram Stain - Final 03/18/17 04:30 Foot - Right Wound Culture - Final Strep Agalactiae Group B 03/18/17 04:30 Urine - Urine Clean Catch Urine Culture - Final NO GROWTH OBTAINED ASSESSMENT AND PLAN: 36yo M with PMH DM (not on medications) presented to the ER with R foot ulcer -Sepsis due to Right foot OM 4th and 5th digit s/p debridement/lavage with 4th/ 5th digit amputation right foot 03/19 and debridement 03/23/17 -Acute Strep B agalactie osteomyelitis (bone cultures positive) -IDDM -HTN Plan: Ceftriaxone and clindamycin day 10, ID input noted, Clindamycin d/ gabbie.Plan for total 6 weeks of antibiotics. Contniue bacid. Wound care instructions and podiatry input noted. Vascular input appreciated. pain control. encouraged to get out of bed and ambulate with heel of shoe. podiatry recommended HBO therapy however unclear if pt has insurance or not. requested pt to have bring paperwork. will be unable to afford if has no insurance A1c 12. ?compliance with insulin. Discussed with endocrine Dr. Momin, recommedn glipizide/metformin to ensure affordability and compliance. Lisinopril 5 mg daily Wound care instructions with patient and family. PICC line placed. Prescriptions sent to [facility] pharmacy. Outpatient IV antibiotic arrangements have been made. DVTPPX with heparin. Dispo plan d/c home today with daily visit for antibiotics and wound care teaching. Medical clinical appointment set for Wednesday03/29/2016.
--- NOTE | 2017-03-27 13:38 | DS ---
Physical Exam: SUBJECTIVE: No acute events overnight. No new complaints today. OBJECTIVE: Vital Signs Period Temp Pulse Resp BP Sys/Cedillo Pulse Ox Last 24 Hr 97.3 F-99.1 F 86-93 18-20 104-124/57-74 98-99 PHYSICAL EXAM GENERAL: NAD, awake, alert, and fully oriented HEENT: NC/AT, No JVD, sclera anicteric, EOMI, DARLINE LUNGS: CTA bilaterally, no wheezes, rhonchi, rales. no accessory muscle use. HEART: RRR, S1, S2 without murmur ABDOMEN: Soft, nontender, nondistended, normoactive bowel sounds, no guarding, no rebound, no hepatomegaly, no masses. EXTREMITIES: 2+ DP pulses, warm, well-perfused, no edema, pt retains ability to move toes, sensation intact at toe-tips, cap refill <2sec NEUROLOGICAL: Cranial nerves II through XII grossly intact. Normal speech, gait not observed. PSYCH: Normal mood, normal affect. SKIN: Warm, dry, bandage to R foot noted without any purulence or bloody let- through; wound not visualized today LABS Laboratory Results - last 24 hr 03/26/17 03/26/17 03/27/17 17:32 20:36 06:10 ESR POC Glucometer 202 269 160 C-Reactive Protein 03/27/17 03/27/17 03/27/17 06:20 06:20 11:41 ESR 92 H POC Glucometer 274 C-Reactive Protein 10.3 H D Microbiology 03/19/17 19:20 Bone Gram Stain - Final 03/19/17 19:20 Bone Tissue Culture - Final Strep Agalactiae Group B 03/19/17 19:20 Bone Anaerobic Culture - Final NO ANAEROBES WERE ISOLATED 03/17/17 19:25 Blood - Peripheral Venous Blood Culture - Final NO GROWTH AFTER 5 DAYS INCUBATION 03/17/17 19:25 Blood - Peripheral Venous Blood Culture - Final NO GROWTH AFTER 5 DAYS INCUBATION 03/19/17 19:20 Foot - Right Gram Stain - Final 03/19/17 19:20 Foot - Right Wound Culture - Final Strep Agalactiae Group B 03/18/17 04:30 Foot - Right Gram Stain - Final 03/18/17 04:30 Foot - Right Wound Culture - Final Strep Agalactiae Group B 03/18/17 04:30 Urine - Urine Clean Catch Urine Culture - Final NO GROWTH OBTAINED HOSPITAL COURSE: Date of Admission:03/18/17 Date of Discharge: 03/27/17 Pt admitted 03/18/17 when he presented with foot pain, fevers and chills found to have R foot ulcer and suspected gangrene. Vascular surgery and podiatry was consulted and agreed for a 4th and 5th toe amputation. Pt was also placed on broad-spectrum antibiotic coverage by infectious disease and pt underwent surgery. Wound culture intra-operatively was collected which resulted in above and pt was noted to have osteomyelitis of the R 4th and 5th toe. He had Santyl, Dakins, and a DSD for wound care with daily dressing changes. Alongside of his foot disease, pt was found to have an A1c of 12.5 and was placed on Levermir and ISS which better controlled his blood glucose. Pt then underwent further debridement of his wound and was continued on Rocephin and Clindamycin for his R foot infection. Pt's hospital course was complicated by his insurance needs and eventually received emergency Medicaid. Prior to discharge PICC line was placed in patient without complication to be used for long-term antibiotic care. Pt is being discharged in stable condition with long-term IV site infusions on board at the hospital. Pt is to have Rocephin 2gm IV daily infused with instructions to flush his PICC line after each use. Pt also has follow-up with Dr. Castaneda set up for his wound care and was instructed how to change his dressing and apply Santyl, Dakin's solution, and apply a DSD daily. Pt will also be discharged on Metformin 500mg BID and Glipizide 2.5mg BID for better glucose control with follow-up to the resident clinic (his first appointment is Wednesday03/29/17 at 13:30h). . Imaging Studies throughout hospital stay: 03/17 R foot XR: Prominent dorsal soft tissues overlying forefoot with subcutaneous gas overlying fourth metatarsal head and fourth MTP. A necrotizing/ gas-forming soft tissue infection process is not excluded 03/18 R Foot MRI: Diffuse subcutaneous soft tissue edema about the foot. Irregularity of the soft tissues over dorsal aspect of fourth metatarsal phalangeal joint with dark signal (which could be due to air and soft tissue edema extending into fourth toe). Bone marrow edema of fourth metatarsal head and proximal phalanx which is nonspecific but in setting of infectious process is most consistent with osteomyelitis 03/18 CXR - No acute pathology 03/18 R lower extremity duplex: Triphasic flow withn r lower extremity arteris with no evidence of hemodynamically significant stenosis Minutes to complete discharge: 40 <Edu Lopes - Last Filed: 03/27/17 22:13> Physical Exam: SUBJECTIVE: Patient seen and examined OBJECTIVE: Vital Signs Period Temp Pulse Resp BP Sys/Cedillo Pulse Ox Last 24 Hr 98.5 F-99.1 F 86-93 18-20 104-122/57-66 98 PHYSICAL EXAM GENERAL: The patient is awake, alert, and fully oriented, in no acute distress. HEAD: Normal with no signs of trauma. EYES: PERRL, extraocular movements intact, sclera anicteric, conjunctiva clear. ENT: Ears normal, nares patent, oropharynx clear without exudates, moist mucous membranes. NECK: Trachea midline, full range of motion, supple. LUNGS: Breath sounds equal, clear to auscultation bilaterally, no wheezes, no crackles, no accessory muscle use. HEART: Regular rate and rhythm, S1, S2 without murmur, rub or gallop. ABDOMEN: Soft, nontender, nondistended, normoactive bowel sounds, no guarding, no rebound, no hepatosplenomegaly, no masses. EXTREMITIES: 2+ pulses, warm, well-perfused, no edema. NEUROLOGICAL: Cranial nerves II through XII grossly intact. Normal speech, gait not observed. PSYCH: Normal mood, normal affect. SKIN: Warm, dry, normal turgor, no rashes or lesions noted. LABS Laboratory Results - last 24 hr 03/27/17 03/27/17 03/27/17 06:20 06:20 11:41 ESR 92 H POC Glucometer 274 C-Reactive Protein 10.3 H D HOSPITAL COURSE: Date of Admission:03/18/17 Date of Discharge: 03/28/17 <Sanford Scott - Last Filed: 03/28/17 07:21> Discharge Summary Reason For Visit: GANGRENE OF RIGHT FOOT,CELLULITIS OF RIGHT FOOT Current Active Problems Cellulitis of foot, right (Acute) Gangrene of right foot (Acute) Diabetes (Chronic) - Home Medications Comprehensive Discharge Medication List: Ambulatory Orders Ceftriaxone [Rocephin 2Gm Ivpb (Pre-Docked)] 2 gm IVPB DAILY 41 Days vial 03/27 Collagenase Clostridium Hist. [Santyl -] 1 applic TP DAILY #0 tube 03/27/17 Glipizide 2.5 mg PO BID #30 tablet 03/27/17 Lisinopril [Prinivil] 5 mg PO DAILY #30 tablet 03/27/17 Metformin HCl 500 mg PO BID #60 tablet 03/27/17 Miscellaneous Medical Supply [Glucometer Device] 1 each KEVIN ASDIR #1 kit Miscellaneous Medical Supply [Glucometer Test Strips #50] 1 each KEVIN ASDIR #1 box 03/27/17 Sodium Hypochlorite [Dakin's Solution 0.25% (Half-Strength) -] 1 applic TP DAILY #0 ml 03/27/17 <Edu Lopes - Last Filed: 03/27/17 22:13> Hospital Course: Endocrine input was obtained with Dr. Sweeney, and to ensure affordability and compliance, patient was placed on metformin 500 mg BID and glipizide 2.5 mg BID per his recommendations. - Home Medications Comprehensive Discharge Medication List: Ambulatory Orders Ceftriaxone [Rocephin 2Gm Ivpb (Pre-Docked)] 2 gm IVPB DAILY 41 Days vial 03/27 Collagenase Clostridium Hist. [Santyl -] 1 applic TP DAILY #0 tube 03/27/17 Glipizide 2.5 mg PO BID #30 tablet 03/27/17 Lisinopril [Prinivil] 5 mg PO DAILY #30 tablet 03/27/17 Metformin HCl 500 mg PO BID #60 tablet 03/27/17 Miscellaneous Medical Supply [Glucometer Device] 1 each KEVIN ASDIR #1 kit Miscellaneous Medical Supply [Glucometer Test Strips #50] 1 each KEVIN ASDIR #1 box 03/27/17 Sodium Hypochlorite [Dakin's Solution 0.25% (Half-Strength) -] 1 applic TP DAILY #0 ml 03/27/17 <Sanford Scott - Last Filed: 03/28/17 07:21> Condition: Stable - Instructions Diet, Activity, Other Instructions: RECOMMENDATIONS You were hospitalized due to your foot being infected which spread into the bones of your toes If you start to develop fevers/chills, redness around the area or any other signs of infection please seek medical attention in the ER You will need IV antibiotics daily which will be provided at the hospital --It is very important that you You were given a PICC line which helps with IV antibiotic infusions --Keep the dressing dry and intact --Shower instead of taking baths; you can ask the nurse for an arm protector to keep your arm dry when you shower --Do not submerge the PICC line arm in water --DO NOT swim or go in a hot tub with the PICC line --Do not have blood drawn from the PICC line --When your blood pressure is taken, have it done on the opposite side from the line --Avoid acitivities with a lot of arm movement. Also avoid heavy lifting over 5-10lbs --There is a risk the PICC line will become dislodged with a lot of upper body movement --Change the dressing of the PICC line once per week; your nurse during IV infusions can help you with this --IF you develop any redness, swelling, pain around your PICC line site please notify your doctor WOUND CARE --You should change your dressing daily --Please use Santyl and Dakins solution and wrap with a dry sterile dressing and an SHANTI bandage like how you were shown in the hospital -- MEDICATION CHANGES You will need IV antibiotics until May 08 2017 and then as determined by Infectious disease. You will need infectious disease follow up in 2 weeks and interval blood tests to monitor infection while on antibiotics. Please discuss with your clinic doctor on Wednesday03/29/2017 when follow up. You have been set up for daily infusions at the hospital on the second floor for this You will be given medications for your diabetes --Please take Metformin 500mg TWICE per day --Please take Glipizide 2.5mg; you will be given 5mg tablet so take ONE HALF of a pill in the MORNING and ONE HALF at NIGHT You were also given Lisinopril for you blood pressure to be taken ONCE per day --These prescriptions have been to sent to [facility] at [address] [place] [address] which will provide a discount when you pick-up your medications. Notify your doctor if you notice any new rash or ongoing diarrhea (on metformin) ,persistent coughing (lisinopril). Call 911 or come to ED if any face, lip or tongue swelling or trouble breathing. You are advised blood sugar monitoring before meals and at bedtime while on this medication. You are provided with prescription for glucometer and strips for the same. Strongly recommend blood glucose monitoring as you are on new diabetes medications as there is always a risk of low blood sugar, permanent brain damage or if you take these medications without the advised blood glucose monitoring. Check blood sugars before meals and bedtime and notify your doctor if < 75 or persistently > 200 or any reading > 400 noted. If any confusion, vision changes , call 911 or come to ED immediately. FOLLOW-UPs You will need to return to the hospital for your IV antibiotic infusions as above You will need to follow-up with your general doctor; because you do not have one you can follow-up at the clinic by calling [phone]. You are scheduled for Wednesday03/29/2017 1:30pm for a follow-up appointment. You will need to follow-up with Dr. Castaneda, he can see you on Tuesdays at the hospital, however you will need to be vigilant with your bandage changes like we taught you Referrals: Alejandro Tanner MD [Staff Physician] - 03/29/17 1:30 pm Prem Castaneda MD [Staff Physician] - Disposition: HOME This patient is new to me today: No Emergency Visit: No Critical Care patient: No - Discharge Referral Referred to [facility] Med [facility].C[facility] No <Edu Lopes - Last Filed: 03/27/17 22:13>
[2017-03-27 13:40] VITALS: BP 104/66; PULSE 86; TEMP 98.5
== END 2017-03-27 16:30 | disposition home or self-care (01) | DRG 710 ==
LOC: JER 19:18 → JERBED 03-18 00:01 → J7W 03-18 03:59
PROVIDERS: ADMIT Internal Medicine; ATTEND Hospitalist
PROC: 0Y6X0Z0 Detachment at Right 5th Toe, Complete, Open Approach (ICD-10-PCS; 2017-03-19)
PROC: 0JBQ0ZZ Excision of Right Foot Subcutaneous Tissue and Fascia, Open Approach (ICD-10-PCS; principal; 2017-03-19 17:00)
PROC: 0Y6V0Z0 Detachment at Right 4th Toe, Complete, Open Approach (ICD-10-PCS; 2017-03-19 17:00)
PROC: 0KBV0ZZ Excision of Right Foot Muscle, Open Approach (ICD-10-PCS; 2017-03-23)
PROC: 02HV33Z Insertion of Infusion Device into Superior Vena Cava, Percutaneous Approach (ICD-10-PCS; 2017-03-26)
DX: A41.9 Sepsis, unspecified organism (principal); E11.621 Type 2 diabetes mellitus with foot ulcer; L97.518 Non-pressure chronic ulcer of other part of right foot with other specified severity; E11.65 Type 2 diabetes mellitus with hyperglycemia; E11.52 Type 2 diabetes mellitus with diabetic peripheral angiopathy with gangrene; A48.0 Gas gangrene; E87.1 Hypo-osmolality and hyponatremia; L03.115 Cellulitis of right lower limb; R00.0 Tachycardia, unspecified; M86.8X7 Other osteomyelitis, ankle and foot; B49 Unspecified mycosis
CPT/HCPCS: 36415; 36569; 71010-TC; 73630-TC-RT; 73718-TC; 77001-TC; 80048; 80053; 81003; 81015; 82962; 83036; 83605; 85025; 85027; 85610; 85651; 86140; 86850; 86900; 86901; 87040; 87070; 87075; 87086; 87186; 87205; 87389; 88307-TC; 88311-TC; 93005; 93010; 93926-TC; 93971-TC; 94010; 94760; 99282-25; C1751; J1644

== ENCOUNTER 2017-03-28 11:46 | Day surgery (SDC) | payer OTHER ==
[2017-03-28] MEDS ORDERED: CEFTRIAXONE IN IS-OSM DEXTROSE 2 GM/50 ML BAG IVPB ONE (14:00)
[2017-03-28 15:09] VITALS: BP 102/72; PULSE 85; TEMP 98.3
== END 2017-03-28 15:28 | disposition home or self-care (01) ==
LOC: JINFUSION 11:46 → J7W 11:46 → JINFUSION 15:28
PROVIDERS: ATTEND Internal Medicine
DX: L03.114 Cellulitis of left upper limb (principal); E11.52 Type 2 diabetes mellitus with diabetic peripheral angiopathy with gangrene; E11.65 Type 2 diabetes mellitus with hyperglycemia; I96 Gangrene, not elsewhere classified; Z79.4 Long term (current) use of insulin; E87.1 Hypo-osmolality and hyponatremia
CPT/HCPCS: 96365

== ENCOUNTER 2017-03-29 10:28 | Day surgery (SDC) | payer OTHER ==
[2017-03-29 11:10] VITALS: TEMP 97.9
[2017-03-29 11:46] VITALS: BP 102/70; PULSE 88
== END 2017-03-29 11:46 | disposition home or self-care (01) ==
LOC: JINFUSION 10:28
PROVIDERS: ATTEND Internal Medicine
DX: L03.115 Cellulitis of right lower limb (principal); E11.52 Type 2 diabetes mellitus with diabetic peripheral angiopathy with gangrene; E11.65 Type 2 diabetes mellitus with hyperglycemia; I96 Gangrene, not elsewhere classified; Z79.4 Long term (current) use of insulin
CPT/HCPCS: 96365

== ENCOUNTER 2017-03-30 10:56 | Day surgery (SDC) | payer OTHER ==
[2017-03-30] MEDS ORDERED: CEFTRIAXONE IN IS-OSM DEXTROSE 2 GM/50 ML BAG IVPB ONE (11:13)
[2017-03-30 11:25] VITALS: TEMP 97.7
[2017-03-30 12:12] VITALS: BP 100/62; PULSE 80
== END 2017-03-30 12:00 | disposition home or self-care (01) ==
LOC: JINFUSION 10:56
PROVIDERS: ATTEND Internal Medicine
DX: L03.115 Cellulitis of right lower limb (principal)
CPT/HCPCS: 96365

== ENCOUNTER 2017-03-31 10:35 | Day surgery (SDC) | payer OTHER ==
[2017-03-31 11:05] VITALS: TEMP 98
[2017-03-31 11:46] VITALS: BP 103/68; PULSE 89
[2017-03-31] MEDS ORDERED: CEFTRIAXONE 2 GM in DEXTROSE 5%-WATER - 100 ML IVPB ONE (13:45)
== END 2017-03-31 11:40 | disposition home or self-care (01) ==
LOC: JINFUSION 10:35
PROVIDERS: ATTEND Internal Medicine
DX: L03.115 Cellulitis of right lower limb (principal)
CPT/HCPCS: 96365

== ENCOUNTER 2017-04-01 10:23 | Day surgery (SDC) | payer OTHER ==
[2017-04-01 10:50] VITALS: TEMP 97.9
[2017-04-01] MEDS ORDERED: CEFTRIAXONE IN IS-OSM DEXTROSE 2 GM/50 ML BAG IVPB ONE (11:00)
[2017-04-01 11:24] VITALS: BP 106/76; PULSE 90
== END 2017-04-01 11:24 | disposition home or self-care (01) ==
LOC: JINFUSION 10:23
PROVIDERS: ATTEND Internal Medicine
DX: L03.115 Cellulitis of right lower limb (principal)
CPT/HCPCS: 96365

== ENCOUNTER → 2017-04-02 | Day surgery (SDC) | payer OTHER ==
[~2017-04-02] MED LIST: cefTRIAXone SODIUM 1 GM VIAL ONE
[2017-04-02 14:15] VITALS: TEMP 98.4
[2017-04-02 14:16] VITALS: BP 100/65; PULSE 95
== END | disposition home or self-care (01) ==
LOC: JINFUSION 10:30
PROVIDERS: ATTEND Internal Medicine
DX: L03.115 Cellulitis of right lower limb (principal)
CPT/HCPCS: 96365

== ENCOUNTER 2017-04-03 12:22 | Day surgery (SDC) | payer OTHER ==
[2017-04-03] MEDS ORDERED: CEFTRIAXONE 2 GM in DEXTROSE 5%-WATER - 100 ML IVPB ONE (13:15)
[2017-04-03 13:59] VITALS: TEMP 98
[2017-04-03 14:24] VITALS: BP 112/77; PULSE 90
== END 2017-04-03 14:00 | disposition home or self-care (01) ==
LOC: J7W 12:22 → JINFUSION 12:22
PROVIDERS: ATTEND Internal Medicine
DX: L03.115 Cellulitis of right lower limb (principal)
CPT/HCPCS: 96365; 96367

== ENCOUNTER 2017-04-04 11:42 | Day surgery (SDC) | payer OTHER ==
[2017-04-04] MEDS ORDERED: cefTRIAXone 2 GM/100 ML BAG (PRE-DOCKED) IVPB ONE (12:15)
[2017-04-04 15:19] VITALS: BP 105/68; PULSE 89; TEMP 98.3
== END 2017-04-04 13:30 | disposition home or self-care (01) ==
LOC: J7W 11:42 → JINFUSION 11:42
PROVIDERS: ATTEND Internal Medicine
DX: L03.115 Cellulitis of right lower limb (principal)
CPT/HCPCS: 96365

== ENCOUNTER 2017-04-05 10:36 | Day surgery (SDC) | payer OTHER ==
[2017-04-05 11:09] VITALS: TEMP 98.5
[2017-04-05] MEDS ORDERED: CEFTRIAXONE IN IS-OSM DEXTROSE 2 GM/50 ML BAG IVPB ONE (12:00)
[2017-04-05 12:42] VITALS: BP 107/69; PULSE 89
== END 2017-04-05 12:30 | disposition home or self-care (01) ==
LOC: JINFUSION 10:36
PROVIDERS: ATTEND Internal Medicine
DX: L03.115 Cellulitis of right lower limb (principal)
CPT/HCPCS: 96365

== ENCOUNTER 2017-04-06 10:08 | Day surgery (SDC) | payer OTHER ==
[2017-04-06 10:22] VITALS: TEMP 97.7
[2017-04-06] MEDS ORDERED: CEFTRIAXONE IN IS-OSM DEXTROSE 2 GM/50 ML BAG IVPB ONE (11:15)
[2017-04-06 11:30] VITALS: BP 110/71; PULSE 86
== END 2017-04-06 11:25 | disposition home or self-care (01) ==
LOC: JINFUSION 10:08
PROVIDERS: ATTEND Internal Medicine
DX: L03.115 Cellulitis of right lower limb (principal)
CPT/HCPCS: 96365

== ENCOUNTER 2017-04-07 10:04 | Day surgery (SDC) | payer OTHER ==
[2017-04-07 10:39] VITALS: BP 135/57; PULSE 89; TEMP 98.1
[2017-04-07] MEDS ORDERED: CEFTRIAXONE IN IS-OSM DEXTROSE 2 GM/50 ML BAG IVPB ONE (11:00)
== END 2017-04-07 11:16 | disposition home or self-care (01) ==
LOC: JINFUSION 10:04
PROVIDERS: ATTEND Internal Medicine
DX: L03.115 Cellulitis of right lower limb (principal)
CPT/HCPCS: 96365

== ENCOUNTER 2017-04-08 09:57 | Day surgery (SDC) | payer OTHER ==
[2017-04-08 10:30] VITALS: BP 91/69; PULSE 94; TEMP 98.8
[2017-04-08] MEDS ORDERED: REGADENOSON 0.4 MG/5 ML PRE-FILLED SYRINGE IVPUSH ONE (11:15)
[2017-04-08] MEDS ORDERED: CEFTRIAXONE IN IS-OSM DEXTROSE 2 GM/50 ML BAG IVPB ONE (11:30)
== END 2017-04-08 11:00 | disposition home or self-care (01) ==
LOC: JINFUSION 09:57
PROVIDERS: ATTEND Internal Medicine
DX: L03.115 Cellulitis of right lower limb (principal)
CPT/HCPCS: 96365

== ENCOUNTER 2017-04-09 10:47 | Day surgery (SDC) | payer OTHER ==
[2017-04-09 11:32] VITALS: TEMP 98.3
[2017-04-09] MEDS ORDERED: CEFTRIAXONE IN IS-OSM DEXTROSE 2 GM/50 ML BAG IVPB ONE (12:00)
[2017-04-09 12:11] VITALS: BP 104/70; PULSE 86
== END 2017-04-09 12:11 | disposition home or self-care (01) ==
LOC: JINFUSION 10:47
PROVIDERS: ATTEND Internal Medicine
DX: L03.115 Cellulitis of right lower limb (principal)
CPT/HCPCS: 96365

== ENCOUNTER 2017-04-10 11:18 | Day surgery (SDC) | payer OTHER ==
[2017-04-10] MEDS ORDERED: cefTRIAXone 2 GM/100 ML BAG (PRE-DOCKED) IVPB ONE (13:00)
[2017-04-10 13:09] VITALS: TEMP 98
[2017-04-10 13:55] VITALS: BP 105/55; PULSE 80
== END 2017-04-10 14:00 | disposition home or self-care (01) ==
LOC: JINFUSION 11:18 → J7W 11:19 → JINFUSION 14:00
PROVIDERS: ATTEND Internal Medicine
DX: L03.115 Cellulitis of right lower limb (principal)
CPT/HCPCS: 96365

== ENCOUNTER 2017-04-11 11:38 | Day surgery (SDC) | payer OTHER ==
[2017-04-11] MEDS ORDERED: CEFTRIAXONE IN IS-OSM DEXTROSE 2 GM/50 ML BAG IVPB ONE (12:45)
[2017-04-11 16:09] VITALS: BP 98/60; PULSE 92; TEMP 98.4
== END 2017-04-11 15:13 | disposition home or self-care (01) ==
LOC: JINFUSION 11:38 → J7W 11:39 → JINFUSION 15:13
PROVIDERS: ATTEND Internal Medicine
DX: L03.115 Cellulitis of right lower limb (principal)
CPT/HCPCS: 96365

== ENCOUNTER 2017-04-12 10:33 | Day surgery (SDC) | payer OTHER ==
[2017-04-12] MEDS ORDERED: CEFTRIAXONE IN IS-OSM DEXTROSE 2 GM/50 ML BAG IVPB ONE (11:30)
[2017-04-12 11:48] VITALS: BP 107/71
[2017-04-13 11:20] VITALS: PULSE 72; TEMP 98.4
== END 2017-04-12 11:49 | disposition home or self-care (01) ==
LOC: JASU-ENDO 10:33
PROVIDERS: ATTEND Internal Medicine
DX: L03.115 Cellulitis of right lower limb (principal)
CPT/HCPCS: 96365

== ENCOUNTER 2017-04-13 09:48 | Day surgery (SDC) | payer OTHER ==
[2017-04-13] MEDS ORDERED: CEFTRIAXONE IN IS-OSM DEXTROSE 2 GM/50 ML BAG IVPB ONE (10:00)
[2017-04-13 11:43] VITALS: TEMP 98.2
[2017-04-13 12:25] VITALS: BP 100/60; PULSE 86
== END 2017-04-13 12:25 | disposition home or self-care (01) ==
LOC: JINFUSION 09:48
PROVIDERS: ATTEND Internal Medicine
DX: E11.621 Type 2 diabetes mellitus with foot ulcer (principal); L03.115 Cellulitis of right lower limb; L97.512 Non-pressure chronic ulcer of other part of right foot with fat layer exposed
CPT/HCPCS: 11042; 96365

== ENCOUNTER 2017-04-14 10:51 | Day surgery (SDC) | payer OTHER ==
[2017-04-14 11:32] VITALS: TEMP 98.4
[2017-04-14] MEDS ORDERED: CEFTRIAXONE IN IS-OSM DEXTROSE 2 GM/50 ML BAG IVPB ONE (11:45)
[2017-04-14 12:13] VITALS: BP 117/86; PULSE 90
== END 2017-04-14 12:00 | disposition home or self-care (01) ==
LOC: JINFUSION 10:51
PROVIDERS: ATTEND Internal Medicine
DX: L03.115 Cellulitis of right lower limb (principal)
CPT/HCPCS: 96365

== ENCOUNTER 2017-04-15 10:06 | Day surgery (SDC) | payer OTHER ==
[2017-04-15 10:43] VITALS: TEMP 97.4
[2017-04-15] MEDS ORDERED: CEFTRIAXONE IN IS-OSM DEXTROSE 2 GM/50 ML BAG IVPB ONE (10:45)
[2017-04-15 11:36] VITALS: BP 107/62; PULSE 99
== END 2017-04-15 11:05 | disposition home or self-care (01) ==
LOC: JINFUSION 10:06
PROVIDERS: ATTEND Internal Medicine
DX: L03.115 Cellulitis of right lower limb (principal)
CPT/HCPCS: 96365

== ENCOUNTER 2017-04-16 09:58 | Day surgery (SDC) | payer OTHER ==
[2017-04-16] MEDS ORDERED: CEFTRIAXONE IN IS-OSM DEXTROSE 2 GM/50 ML BAG IVPB ONE (10:00)
[2017-04-16 10:43] VITALS: TEMP 98.5
[2017-04-16 12:14] VITALS: BP 109/63; PULSE 93
== END 2017-04-16 12:10 | disposition home or self-care (01) ==
LOC: JINFUSION 09:58
PROVIDERS: ATTEND Internal Medicine
DX: L03.115 Cellulitis of right lower limb (principal)
CPT/HCPCS: 96365

== ENCOUNTER 2017-04-17 11:58 | Day surgery (SDC) | payer OTHER ==
[2017-04-17] MEDS ORDERED: CEFTRIAXONE IN IS-OSM DEXTROSE 2 GM/50 ML BAG IVPB ONE (12:45)
[2017-04-17 12:54] VITALS: BP 111/79; PULSE 99; TEMP 98.9
== END 2017-04-17 13:45 | disposition home or self-care (01) ==
LOC: JINFUSION 11:58 → J7W 11:59 → JINFUSION 13:45
PROVIDERS: ATTEND Internal Medicine
DX: L03.115 Cellulitis of right lower limb (principal)
CPT/HCPCS: 96365

== ENCOUNTER 2017-04-18 11:55 | Day surgery (SDC) | payer OTHER ==
[2017-04-18] MEDS ORDERED: CEFTRIAXONE IN IS-OSM DEXTROSE 2 GM/50 ML BAG IVPB ONE (12:45)
[2017-04-18 13:38] VITALS: BP 113/76; PULSE 95; TEMP 98.3
== END 2017-04-18 13:00 | disposition home or self-care (01) ==
LOC: JINFUSION 11:55 → J7W 11:55 → JINFUSION 13:00
PROVIDERS: ATTEND Internal Medicine
DX: L03.115 Cellulitis of right lower limb (principal)
CPT/HCPCS: 96365

== ENCOUNTER 2017-04-19 10:54 | Day surgery (SDC) | payer OTHER ==
[2017-04-19 11:12] VITALS: BP 98/71; PULSE 90; TEMP 98.2
[2017-04-19] MEDS ORDERED: CEFTRIAXONE 2 GM in DEXTROSE 5%-WATER - 100 ML IVPB ONE (11:30)
== END 2017-04-19 11:47 | disposition home or self-care (01) ==
LOC: JINFUSION 10:54 → JASU-ENDO 10:54
PROVIDERS: ATTEND Internal Medicine
DX: L03.115 Cellulitis of right lower limb (principal)
CPT/HCPCS: 96365

== ENCOUNTER 2017-04-20 10:07 | Day surgery (SDC) | payer OTHER ==
[2017-04-20 10:37] VITALS: BP 114/66; PULSE 85; TEMP 98.5
[2017-04-20] MEDS ORDERED: CEFTRIAXONE 2 GM in DEXTROSE 5%-WATER - 100 ML IVPB ONE (10:45)
== END 2017-04-20 11:10 | disposition home or self-care (01) ==
LOC: JINFUSION 10:07
PROVIDERS: ATTEND Internal Medicine
DX: L03.115 Cellulitis of right lower limb (principal)
CPT/HCPCS: 96365

== ENCOUNTER 2017-04-21 10:15 | Day surgery (SDC) | payer OTHER ==
[~2017-04-21 10:15] MED LIST changes: +CEFTRIAXONE IN IS-OSM DEXTROSE 2 GM/50 ML BAG IVPB ONE; -cefTRIAXone SODIUM 1 GM VIAL ONE
[2017-04-21 11:32] VITALS: BP 110/62; PULSE 78; TEMP 98.7
== END 2017-04-21 11:33 | disposition home or self-care (01) ==
LOC: JINFUSION 10:15
PROVIDERS: ATTEND Internal Medicine
DX: L03.115 Cellulitis of right lower limb (principal)
CPT/HCPCS: 96365

== ENCOUNTER 2017-04-22 09:50 | Day surgery (SDC) | payer OTHER ==
[2017-04-22 10:40] VITALS: BP 102/71; PULSE 90; TEMP 97.8
== END 2017-04-22 11:13 | disposition home or self-care (01) ==
LOC: JINFUSION 09:50
PROVIDERS: ATTEND Internal Medicine
DX: L03.115 Cellulitis of right lower limb (principal)
CPT/HCPCS: 96365

== ENCOUNTER 2017-04-23 10:38 | Day surgery (SDC) | payer OTHER ==
[~2017-04-23 10:38] MED LIST changes: -CEFTRIAXONE IN IS-OSM DEXTROSE 2 GM/50 ML BAG IVPB ONE; +CEFTRIAXONE IN IS-OSM DEXTROSE 2 GM/50 ML BAG IVPB SCH
[2017-04-23 11:04] VITALS: TEMP 98.5
[2017-04-23 11:59] VITALS: BP 111/76; PULSE 91
== END 2017-04-23 12:00 | disposition home or self-care (01) ==
LOC: JINFUSION 10:38
PROVIDERS: ATTEND Internal Medicine
DX: L03.115 Cellulitis of right lower limb (principal)
CPT/HCPCS: 96365

== ENCOUNTER 2017-04-24 11:22 | Day surgery (SDC) | payer OTHER ==
[2017-04-24] MEDS ORDERED: CEFTRIAXONE IN IS-OSM DEXTROSE 2 GM/50 ML BAG IVPB SCH (12:00)
[2017-04-24 12:28] VITALS: BP 106/77; PULSE 91; TEMP 98.2
== END 2017-04-24 12:29 | disposition home or self-care (01) ==
LOC: JINFUSION 11:22 → J7W 11:25 → JINFUSION 12:29
PROVIDERS: ATTEND Internal Medicine
DX: L03.115 Cellulitis of right lower limb (principal)
CPT/HCPCS: 96365; 96366

== ENCOUNTER 2017-04-25 11:40 | Day surgery (SDC) | payer OTHER ==
[2017-04-25] MEDS ORDERED: CEFTRIAXONE IN IS-OSM DEXTROSE 2 GM/50 ML BAG IVPB SCH (12:00)
[2017-04-25 13:32] VITALS: BP 114/76; PULSE 75; TEMP 98.2
== END 2017-04-25 13:32 | disposition home or self-care (01) ==
LOC: JINFUSION 11:40 → J7W 11:41 → JINFUSION 13:32
PROVIDERS: ATTEND Internal Medicine
DX: L03.115 Cellulitis of right lower limb (principal)
CPT/HCPCS: 96365

== ENCOUNTER → 2017-04-26 | Day surgery (SDC) | payer OTHER ==
[~2017-04-26] MED LIST changes: +CEFTRIAXONE IN IS-OSM DEXTROSE 2 GM/50 ML BAG IVPB ONE; -CEFTRIAXONE IN IS-OSM DEXTROSE 2 GM/50 ML BAG IVPB SCH
[2017-04-26 11:17] VITALS: TEMP 98.4
[2017-04-26 11:45] VITALS: BP 106/74; PULSE 88
== END | disposition home or self-care (01) ==
LOC: JINFUSION 10:43
PROVIDERS: ATTEND Internal Medicine
DX: L03.115 Cellulitis of right lower limb (principal)
CPT/HCPCS: 96365

== ENCOUNTER 2017-04-27 10:40 | Day surgery (SDC) | payer OTHER ==
[2017-04-27 11:14] VITALS: TEMP 98.4
[2017-04-27] MEDS ORDERED: CEFTRIAXONE IN IS-OSM DEXTROSE 2 GM/50 ML BAG IVPB ONE (11:15)
[2017-04-27 12:56] VITALS: BP 110/68; PULSE 90
== END 2017-04-27 11:45 | disposition home or self-care (01) ==
LOC: JINFUSION 10:40
PROVIDERS: ATTEND Internal Medicine
DX: L03.115 Cellulitis of right lower limb (principal)
CPT/HCPCS: 96365

== ENCOUNTER → 2017-04-28 | Day surgery (SDC) | payer OTHER ==
[~2017-04-28] MED LIST changes: +CEFTRIAXONE 2 GM in DEXTROSE 5%-WATER - 100 ML IVPB ONE; -CEFTRIAXONE IN IS-OSM DEXTROSE 2 GM/50 ML BAG IVPB ONE
[2017-04-28 11:23] VITALS: BP 122/80; PULSE 96
== END | disposition home or self-care (01) ==
LOC: JINFUSION 10:25
PROVIDERS: ATTEND Internal Medicine
DX: L03.115 Cellulitis of right lower limb (principal)
CPT/HCPCS: 96365

== ENCOUNTER 2017-12-22 13:38 | Emergency (ER) | payer OTHER ==
[2017-12-22 13:50] VITALS: BP 126/70; PULSE 98; TEMP 98.3; BMI 27.4
[2017-12-22] MEDS ORDERED: ALBUTEROL SO4 2.5/IPRATROPIUM 0.5 INH SOL 3 ML VIAL.NEB. NEB ONE (14:15)
--- NOTE | 2017-12-22 14:20 | PDOC ---
History of Present Illness - General Chief Complaint: Chest Pain Stated Complaint: CHEST PAIN Time Seen by Provider: 12/22/17 14:03 History Source: Patient Exam Limitations: No Limitations - History of Present Illness Initial Comments: 12/22/17 14:16 Noted while at work, went home early from his work at the [employer] because of it. States has had a mild cough is nonproductive. States resolved with rest but Wednesday pain recurred. States has worsened with deep inspiration and states blood sugars have mildly elevated. Has taken no medication 12/22/17 14:20 Timing/Duration: reports: constant, getting worse Severity: reports: mild, moderate Associated Symptoms: reports: cough, fever/chills, headache, nasal congestion, shortness of breath Past History - Travel Traveled outside of the country in the last 30 days: No Close contact w/someone who was outside of country & ill: No - Past Medical History Allergies/Adverse Reactions: Allergies Allergy/AdvReac Type Severity Reaction Status Date / Time No Known Allergies Allergy Verified 12/22/17 13:46 Home Medications: Ambulatory Orders Glipizide 2.5 mg PO BID #30 tablet 03/27/17 metFORMIN HCL [Metformin HCl] 500 mg PO BID #60 tablet 03/27/17 Naproxen [Naprosyn -] 500 mg PO BID #30 tablet 12/22/17 COPD: No Diabetes: Yes HTN: Yes - Suicide/Smoking/Psychosocial Hx Smoking History: Never smoked Have you smoked in the past 12 months: No Information on smoking cessation initiated: No Hx Alcohol Use: No Drug/Substance Use Hx: No Substance Use Type: None Review of Systems - Review of Systems Able to Perform ROS?: Yes Is the patient limited Spanish proficient: Yes Constitutional: Yes: Symptoms Reported, See HPI, Fever, Malaise HEENTM: Yes: Symptoms Reported, See HPI, Nose Congestion. No: Difficulty Swallowing Respiratory: Yes: Symptoms reported, See HPI, Cough, Shortness of Breath ( pleuritic-type chest pain). No: Wheezing Musculoskeletal: No: Symptoms Reported Integumentary: No: Symptoms Reported Neurological: No: Symptoms reported All Other Systems: Reviewed and Negative *Physical Exam - Vital Signs Last Vital Signs Temp Pulse Resp BP Pulse Ox 98.3 F 98 H 16 126/70 100 12/22/17 13:46 12/22/17 13:46 12/22/17 13:46 12/22/17 13:46 12/22/17 13:46 - Physical Exam General Appearance: Yes: Nourished, Appropriately Dressed, Apparent Distress, Mild Distress HEENT: positive: LAUREL, Normal ENT Inspection, TMs Normal, Pharynx Normal. negative: Pharyngeal Erythema, Tonsillar Exudate Neck: positive: Supple. negative: Tender, Lymphadenopathy (R), Lymphadenopathy (L) Respiratory/Chest: positive: Lungs Clear (with some tightness and reproduced pain with deep inspiration), Decreased Breath Sounds. negative: Respiratory Distress, Wheezing Extremity: positive: Normal Capillary Refill, Normal Inspection Integumentary: positive: Normal Color, Dry, Warm, Pale Neurologic: positive: department chairperson II-XII NML intact, Fully Oriented, Alert, Normal Mood/ Affect, Normal Response, Motor Strength 5/5 Progress Note - Progress Note Progress Note: Upper respiratory infection, chest x-ray negative for infiltrates or pathology. We'll treat pleuritic chest pain with NSAIDs and have patient follow-up with PMD as needed. Understands to return to emergency department for worsened symptoms, fevers, pulmonary complaints *DC/Admit/Observation/Transfer Diagnosis at time of Disposition: Chest pain, pleuritic - Discharge Dispostion Disposition: HOME Condition at time of disposition: Stable Decision to Admit order: No - Prescriptions Prescriptions: Naproxen [Naprosyn -] 500 mg PO BID #30 tablet - Referrals - Patient Instructions Printed Discharge Instructions: DI for Atypical Chest Pain Additional Instructions: Rest, drink lots of fluids: Teas, water, soups, Pedialyte Saltwater gargles Steamy showers/seem to face break up mucus Avoid contact with others until fevers and cough resolved Lots of handwashing and good hygiene Continue [id number] medications for symptomatic relief Tylenol or Motrin for fever and pain Followup with private physician in one to 2 days Return to emergency department / pediatric hospital for worsened symptoms, fevers, dehydration - Post Discharge Activity Forms/Work/School Notes: Back to Work
[2017-12-22] MEDS ORDERED: KETOROLAC TROMETHAMINE 60 MG/2 ML VIAL IM ONE (14:45)
[2017-12-22] MEDS ORDERED: KETOROLAC TROMETHAMINE 60 MG/2 ML VIAL ONE (14:48)
--- NOTE | 2017-12-25 17:24 | EKG ---
Test Reason : Blood Pressure : / mmHG Vent. Rate : 087 BPM Atrial Rate : 087 BPM P-R Int : 192 ms QRS Dur : 098 ms QT Int : 366 ms P-R-T Axes : 014 -20 -05 degrees QTc Int : 440 ms NORMAL SINUS RHYTHM INFERIOR INFARCT , AGE UNDETERMINED ABNORMAL ECG WHEN COMPARED WITH ECG OF 18-MAR-2017 03:15, INFERIOR INFARCT IS NOW PRESENT T WAVE INVERSION NOW EVIDENT IN INFERIOR LEADS CLINICAL CORRELATION IS RECOMMENDED BASELINE ARTIFACT Confirmed by LIBRA LEE, ROBIN ([id number]) on 12/25/2017 5:23:41 PM Referred By: Confirmed By:ROBIN SMYTH MD
== END 2017-12-22 15:10 | disposition home or self-care (01) ==
LOC: JERFT 13:38
PROC: 3E0F7GC Introduction of Other Therapeutic Substance into Respiratory Tract, Via Natural or Artificial Opening (ICD-10-PCS; principal; 2017-12-22)
PROC: 3E0233Z Introduction of Anti-inflammatory into Muscle, Percutaneous Approach (ICD-10-PCS; 2017-12-22)
DX: R07.89 Other chest pain (principal); I10 Essential (primary) hypertension; E11.9 Type 2 diabetes mellitus without complications
CPT/HCPCS: 71046-TC-FY; 93005; 93010; 99281-25

== ENCOUNTER 2018-04-17 20:15 | Inpatient (IN) | payer OTHER ==
--- NOTE | 2018-04-17 21:48 | PDOC ---
History of Present Illness - General History Source: Patient Exam Limitations: No Limitations - History of Present Illness Initial Comments: 04/17/18 21:42 Patient is a 37 year old male with h/o DM2, amputation right 2nd and 3rd toes c/ o ulcer to the great toes since yesterday. Patient states he got a blister to the great toe and opened caught some clear fluid out and has been using antibiotic ointment to the area. Had swelling to the foot today with some pain to the great toe only when walking. Denies fever, chills, nausea, vomiting. PMD: Does not remember name PMHX: as above PSOCHX: neg cig, neg etoh, neg drug ALL: NKDA GENERAL/CONSTITUTIONAL: [No fever or chills. No weakness. No weight change.] HEAD, EYES, EARS, NOSE AND THROAT: [No change in vision. No ear pain or discharge. No sore throat.] CARDIOVASCULAR: [No chest pain or shortness of breath.] RESPIRATORY: [No cough, wheezing, or hemoptysis.] GASTROINTESTINAL: [No nausea, vomiting, diarrhea or constipation. No rectal bleeding.] GENITOURINARY: [No dysuria, frequency, or change in urination.] MUSCULOSKELETAL: [No joint or muscle swelling or pain. No neck or back pain.] SKIN AND BREASTS: [No rash or easy bruising.] NEUROLOGIC: [No headache, vertigo, loss of consciousness, or loss of sensation.] PSYCHIATRIC: [No depression or anxiety.] ENDOCRINE: [No increased thirst. No abnormal weight change.] HEMATOLOGIC/LYMPHATIC: [No anemia, easy bleeding, or history of blood clots.] ALLERGIC/IMMUNOLOGIC: [No hives or skin allergy. No latex allergy.] GENERAL: [The patient is awake, alert, and fully oriented, in no acute distress. ] HEAD: [Normal with no signs of trauma.] EYES: [Pupils equal, round and reactive to light, extraocular movements intact, sclera anicteric, conjunctiva clear.] ENT: [Ears normal, nares patent, oropharynx clear without exudates. Moist mucous membranes.] NECK: [Normal range of motion, supple without lymphadenopathy, JVD, or masses.] LUNGS: [Breath sounds equal, clear to auscultation bilaterally. No wheezes, and no crackles.] HEART: [Regular rate and rhythm, normal S1 and S2 without murmur, rub.] ABDOMEN: [Soft, nontender, normoactive bowel sounds. No guarding, no rebound. No masses.] EXTREMITIES: [Normal range of motion, (+) swelling mild redness to the right foot, (+) ulcer to the planter aspect great toe. No clubbing or cyanosis. No cords, erythema, or tenderness.] NEUROLOGICAL: [Cranial nerves II through XII grossly intact. Normal speech, normal gait.] PSYCH: [Normal mood, normal affect.] SKIN: [Warm, Dry, normal turgor, no rashes or lesions noted, open ulcer to the right great toe, (+) swelling mild redness to the right foot <Maverick Luna - Last Filed: 04/17/18 23:34> <Concepcion Guzman - Last Filed: 04/18/18 00:21> - General Chief Complaint: Wound Stated Complaint: RT LOOT PAIN Time Seen by Provider: 04/17/18 21:15 Past History - Past Medical History Anemia: No Cancer: No Cardiac Disorders: No COPD: No Diabetes: Yes (iddm) HTN: Yes - Suicide/Smoking/Psychosocial Hx Smoking History: Never smoked Have you smoked in the past 12 months: No Information on smoking cessation initiated: No Hx Alcohol Use: No Drug/Substance Use Hx: No Substance Use Type: None <Maverick Luna - Last Filed: 04/17/18 23:34> <Concepcion Guzman - Last Filed: 04/18/18 00:21> - Past Medical History Allergies/Adverse Reactions: Allergies Allergy/AdvReac Type Severity Reaction Status Date / Time No Known Allergies Allergy Verified 04/17/18 23:38 Home Medications: Ambulatory Orders Glipizide 2.5 mg PO BID #30 tablet 03/27/17 metFORMIN HCL [Metformin HCl] 500 mg PO BID #60 tablet 03/27/17 *Physical Exam - Vital Signs Last Vital Signs Temp Pulse Resp BP Pulse Ox 97.7 F 92 H 20 137/83 99 04/17/18 20:17 04/17/18 20:17 04/17/18 20:17 04/17/18 20:17 04/17/18 20:17 <Maverick Luna - Last Filed: 04/17/18 23:34> - Vital Signs Last Vital Signs Temp Pulse Resp BP Pulse Ox 97.7 F 92 H 20 137/83 99 04/17/18 20:17 04/17/18 20:17 04/17/18 20:17 04/17/18 20:17 04/17/18 20:17 <Concepcion Guzman - Last Filed: 04/18/18 00:21> Moderate Sedation - Procedure Monitoring Vital Signs: Procedure Monitoring Vital Signs Temperature 97.7 F 04/17/18 20:17 Pulse Rate 92 H 04/17/18 20:17 Respiratory Rate 20 04/17/18 20:17 Blood Pressure 137/83 04/17/18 20:17 O2 Sat by Pulse Oximetry (%) 99 04/17/18 20:17 <Maverick Luna - Last Filed: 04/17/18 23:34> - Procedure Monitoring Vital Signs: Procedure Monitoring Vital Signs Temperature 97.7 F 04/17/18 20:17 Pulse Rate 92 H 04/17/18 20:17 Respiratory Rate 20 04/17/18 20:17 Blood Pressure 137/83 04/17/18 20:17 O2 Sat by Pulse Oximetry (%) 99 04/17/18 20:17 <Concepcion Guzman - Last Filed: 04/18/18 00:21> ED Treatment Course - LABORATORY CBC & Chemistry Diagram: 04/17/18 22:50 04/17/18 22:50 <Maverick Luna - Last Filed: 04/17/18 23:34> - LABORATORY CBC & Chemistry Diagram: 04/17/18 22:50 04/17/18 22:50 - ADDITIONAL ORDERS Additional order review: Laboratory Results 04/17/18 04/17/18 22:50 22:33 Sodium 137 Potassium 4.3 Chloride 104 Carbon Dioxide 28 Anion Gap 5 L BUN 23 H Creatinine 0.8 Creat Clearance w eGFR > 60 POC Glucometer 167.98880 Random Glucose 160 H Calcium 8.6 Total Bilirubin 0.2 AST 24 ALT 25 Alkaline Phosphatase 109 C-Reactive Protein 5.6 H Total Protein 7.0 Albumin 2.9 L 04/17/18 04/17/18 22:50 22:33 RBC 4.25 MCV 89.5 MCHC 36.1 H RDW 13.8 MPV 8.8 Neutrophils % 56.7 Lymphocytes % 29.1 Monocytes % 8.6 Eosinophils % 4.4 Basophils % 1.2 POC Glucometer 167.16899 - Medications Given in the ED: ED Medications Discontinued Medications Generic Name Dose Route Start Last Admin Trade Name Glenis PRN Reason Stop Dose Admin Ampicillin Sodium/Sulbactam 100 mls @ 200 mls/hr 04/17/18 21:55 04/17/18 23: 42 Sodium 1.5 gm/ Sodium Chloride IVPB 04/17/18 22:24 200 mls/hr ONCE ONE Administration Vancomycin HCl 1,000 mg/ 250 mls @ 250 mls/hr 04/17/18 21:55 04/17/18 23:42 Dextrose IVPB 04/17/18 22:54 250 mls/hr NOW ONE Administration Protocol <Concepcion Guzman - Last Filed: 04/18/18 00:21> Medical Decision Making - Medical Decision Making 04/17/18 21:42 Patient is a 37 year old male with h/o DM2, amputation right 2nd and 3rd toes c/ o ulcer to the great toes since yesterday. Patient states he got a blister to the great toe and opened caught some clear fluid out and has been using antibiotic ointment to the area. Had swelling to the foot today with some pain to the great toe only when walking. Denies fever, chills, nausea, vomiting. symptoms consistent with diabetic foot ulcer. will admit for IV antibx foot xray, labs 04/17/18 23:29 EKG SR rate 87, LAD, PVC, hyperacute T in V2 xray foot with no bone destruction. 04/17/18 23:34 Laboratory Tests 04/17/18 22:50 C-Reactive Protein 5.6 H Patient given Unasyn and vancomycin Will admit for diabetic foot ulcer <Maverick Luna - Last Filed: 04/17/18 23:34> *DC/Admit/Observation/Transfer <Maverick Luna - Last Filed: 04/17/18 23:34> - Discharge Dispostion Decision to Admit order: Yes <Concepcion Guzman - Last Filed: 04/18/18 00:21> Diagnosis at time of Disposition: Cellulitis of foot, right, Osteomyelitis Diabetes Qualifiers: Diabetes mellitus type: type 2 Diabetes mellitus termite helper insulin use: without termite helper use Diabetes mellitus complication status: with skin complications Diabetes mellitus complication detail: with foot ulcer Qualified Code(s): E11.621 - Type 2 diabetes mellitus with foot ulcer - Discharge Dispostion Condition at time of disposition: Guarded
[2018-04-17] MEDS ORDERED: VANCOMYCIN 1,000 MG in DEXTROSE 5%-WATER - 250 ML IVPB ONE (21:55)
[2018-04-17] MEDS ORDERED: AMPICILLIN NA/SULBACTAM NA 1.5 GM in SODIUM CHLORIDE 100 ML IVPB ONE (21:55)
[2018-04-17 22:57] LABS: BASO % 1.2 % (0-2.0); EOS % 4.4 % (0-4.5); HEMATOCRIT 38.1 % (35.4-49); HEMOGLOBIN 13.7 GM/dL (11.7-16.9); LYMPH % 29.1 % (8-40); MCH 32.3 pg (25.7-33.7); MCHC 36.1 g/dl (32.0-35.9); MEAN CELL VOLUME 89.5 fl (80-96); MEAN PLT VOLUME 8.8 fl (7.5-11.1); MONO % 8.6 % (3.8-10.2); NEUT % 56.7 % (42.8-82.8); PLATELET COUNT 285 K/MM3 (134-434); RBC 4.25 M/mm3 (4.00-5.60); RDW 13.8 % (11.9-15.9); WHITE BLOOD COUNT 9.1 K/mm3 (4.0-10.0)
[2018-04-17 23:21] LABS: ALBUMIN 2.9 g/dl (3.4-5.0); ALK PHOS 109 U/L (45-117); ANION GAP 5 MMOL/L (8-16); BILIRUBIN,TOTAL 0.2 mg/dL (0.2-1); BLOOD UREA NITROGEN 23 mg/dL (7-18); CALCIUM 8.6 mg/dL (8.5-10.1); CHLORIDE 104 mmol/L (98-107); CO2 28 mmol/L (21-32); CREATININE 0.8 mg/dL (0.55-1.3); GLUCOSE,RANDOM 160 mg/dL (74-106); POTASSIUM 4.3 mmol/L (3.5-5.1); SGOT/AST 24 U/L (15-37); SGPT/ALT 25 U/L (13-61); SODIUM 137 mmol/L (136-145)
[2018-04-17] MEDS ORDERED: VANCOMYCIN 1 GRAM (PRE-DOCKED) 1,000 MG/250 ML BAG IVPB ONE (23:28)
--- NOTE | 2018-04-18 01:13 | PN ---
Teaching Attending Note Name of Resident: Evelyn Yancey ATTENDING PHYSICIAN STATEMENT I saw and evaluated the patient. I reviewed the resident's note and discussed the case with the resident. I agree with the resident's findings and plan as documented. SUBJECTIVE: Seen and examined; please see resident note for further historical details. He noted pain in his R-great toe yesterday he noted blister and his poked at it and removed a scab. They tried applying abx ointment and this didn't help. He had RLE swelling associated with this. He has been here before for DM foot issues in the past. In the ER he was given vancomycin and Unasyn. He has a history of foot infection with documented gangrene last year that required surgical intervention. He is a poor historian and cannot describe what happened after the intial surgery in terms of procedures, etc. He is hemodynamically stable and afebrile. No white count. Elevated ESR. It probes down to below skin but not to bone. He does have risks for infection. 10 sys ROS done and negative aside HPI PMH (DM2) PSH (amputation 4th/5th digit R-foot) OBJECTIVE: VS, labs, imaging reviewed NAD, AAO, resting comfortably in bed RRR s1/2 no mgr R-great toe on plantar surface with jessie-sized irregular boarders redness with appearance of DM ulcer. He has no s/s nec fasc, no signs of CLI, etc. NT ND +BS Lungs CTAB w/ sym exp CN2-12 wnl, no fnd XR reviewed; no free air MRI pending ASSESSMENT AND PLAN: Presents with DM foot wound; no systemic sx but elevated ESR 1) DM foot wound -Wound care consult (has seen Dr. alberts in past; no need for vascular to see now in formal sense), check art/venous dopplers, empiric broad spectrum coverage and further imaging. Consult ID (has seen Dr. Lou in the past), follow up blood cx. Overall this patient's infection doens't appear to be as severe as his prior issue. He has risk factors for OM but this is not tracking to bone and there are no signs of osteo on XR. Will have podiatry see, as well. Labs noted. 2) HTN -Continue home meds 3) DM -Home basal with SSI Full Code
[2018-04-18] MEDS ORDERED: SODIUM CHLORIDE 1,000 ML IV SCH (01:45)
--- NOTE | 2018-04-18 02:18 | HP ---
CHIEF COMPLAINT: R great toe ulcer PCP: HISTORY OF PRESENT ILLNESS: 37 y/o M with hx Type 2 DM, metatarsal amputation R 4th, 5th toes, who presents to the ED with R great toe ulceration x 1 day. As per pt, his R great toe ulcer started yesterday, as a blister. States that he noticed pain with ambulation. His looked at the area and removed a scab, and he started to have serous drainage. At this time, he also endorsed edema in his RLE, focused more towards his ankle. Attempted to aid ulcer with old antibiotic ointment without relief. Denies PLAZA, fever, chills, SOB, chest pain or pressure, or changes in urinary or bowel function. Of note, pt was hospitalized from 03/18/17-03/27/17 d/t R foot ulcer, suspected gangrene. At the time, he was seen by vascular and podiatry and underwent 4th, 5th metarsal amputation. He was tx with IV abx for OM of R 4th and 5th toe, and went home with PICC line and Rocephin 2gm IV daily infusions x 6 week total course. During the visit, his R foot XR showed subcutaneous gas over 4th MT head and MTP. R foot MRI showed diffuse subcutaneous soft tissue edema over 4th MTP jt, as well as OM. ER course was notable for: (1) unasyn (2) vanco (3) Recent Travel: denies PAST MEDICAL HISTORY: as above PAST SURGICAL HISTORY: as above Social History: works at the [employer] at a [employer] Smoking: "quit a long time ago" unable to quantify Alcohol: denies Drugs: denies Family History: mother - DM Allergies No Known Allergies Allergy (Verified 04/17/18 23:38) HOME MEDICATIONS: Home Medications Medication Instructions Recorded Glipizide 2.5 mg PO BID #30 tablet 03/27/17 metFORMIN HCL [Metformin ER 1,000 mg PO BID 04/18/18 Osmotic] verified with patient verbally will need to call pharmacy REVIEW OF SYSTEMS CONSTITUTIONAL: Absent: fever, chills, diaphoresis, generalized weakness, malaise, loss of appetite, weight change HEENT: Absent: rhinorrhea, nasal congestion, throat pain, throat swelling, difficulty swallowing, mouth swelling, ear pain, eye pain, visual changes CARDIOVASCULAR: Absent: chest pain, syncope, palpitations, irregular heart rate, lightheadedness , peripheral edema RESPIRATORY: Absent: cough, shortness of breath, dyspnea with exertion, orthopnea, wheezing, stridor, hemoptysis GASTROINTESTINAL: Absent: abdominal pain, abdominal distension, nausea, vomiting, diarrhea, constipation, melena, hematochezia GENITOURINARY: Absent: dysuria, frequency, urgency, hesitancy, hematuria, flank pain, genital pain MUSCULOSKELETAL: Absent: myalgia, arthralgia, joint swelling, back pain, neck pain SKIN: +ulcer Absent: rash, itching, pallor HEMATOLOGIC/IMMUNOLOGIC: Absent: easy bleeding, easy bruising, lymphadenopathy, frequent infections ENDOCRINE: Absent: unexplained weight gain, unexplained weight loss, heat intolerance, cold intolerance NEUROLOGIC: Absent: headache, focal weakness or paresthesias, dizziness, unsteady gait, seizure, mental status changes, bladder or bowel incontinence PSYCHIATRIC: Absent: anxiety, depression, suicidal or homicidal ideation, hallucinations. PHYSICAL EXAMINATION Vital Signs - 24 hr 04/17/18 20:17 Temperature 97.7 F Pulse Rate 92 H Respiratory 20 Rate Blood Pressure 137/83 O2 Sat by Pulse 99 Oximetry (%) GENERAL: Sitting up in bed. Awake, alert, and fully oriented, in no acute distress. HEAD: Normal with no signs of trauma. EYES: Pupils equal, round and reactive to light, extraocular movements intact, sclera anicteric, conjunctiva clear. EARS, NOSE, THROAT: Ears normal, nares patent, oropharynx clear without exudates. Moist mucous membranes. NECK: Normal range of motion, supple LUNGS: Breath sounds equal, clear to auscultation bilaterally. No wheezes, and no crackles. No accessory muscle use. HEART: Regular rate and rhythm, normal S1 and S2 without murmur, rub or gallop. ABDOMEN: Soft, nontender, not distended, normoactive bowel sounds, no guarding. LOWER EXTREMITIES: 2+ pt pulses. +R 4th, 5th degree MTP amputations. +base R great toe: 1 x1 inch- with erythema, hardened. no drainage NEUROLOGICAL: Cranial nerves II-XII intact. sensation intact PSYCHIATRIC: Cooperative. Good eye contact. Appropriate mood and affect. SKIN: Warm, dry, normal turgor Laboratory Results - last 24 hr 04/17/18 04/17/18 04/17/18 22:33 22:50 22:50 WBC 9.1 RBC 4.25 Hgb 13.7 Hct 38.1 MCV 89.5 MCH 32.3 MCHC 36.1 H RDW 13.8 Plt Count 285 MPV 8.8 Absolute Neuts (auto) 5.1 Neutrophils % 56.7 Lymphocytes % 29.1 Monocytes % 8.6 Eosinophils % 4.4 Basophils % 1.2 Nucleated RBC % 0 ESR 48 H Chloride POC Glucometer [id number] Random Glucose 04/17/18 22:50 Lymphocytes % ESR Sodium 137 Potassium 4.3 Chloride 104 Carbon Dioxide 28 Anion Gap 5 L BUN 23 H Creatinine 0.8 Creat Clearance w eGFR > 60 POC Glucometer Random Glucose 160 H Calcium 8.6 Total Bilirubin 0.2 AST 24 ALT 25 Alkaline Phosphatase 109 C-Reactive Protein 5.6 H Total Protein 7.0 Albumin 2.9 L imaging - official reads pending R foot XR: prelim read -no fx, no radiographic signs of OM. Duplex scan RLE arterial: prelim read -mild atherosclerosis w/o significant stenosis. mild scattered plaque throughout RLE deep arterial system. normal triphasic flow in R common femoral, superficial femoral, popliteal and posterior tibial aa. venous duplex RLE: prelim - no DVT in RLE. EKG: NSR, l axis dev. rate 87 with PVC's, qtc 442ms. ASSESSMENT/PLAN: 37 y/o M with hx Type 2 DM, metatarsal amputation R 4th, 5th toes, who presents to the ED with R great toe ulceration x 1 day. #R great toe ulcer -currently afebrile, without white count. hemodynamically stable however significant hx in past for subcutaneous gas -past bone cx grew strep agalactieae group B, louie-sensitive -will consult ID (Carmine), podiatry (Tonya). will decide whether needs debridement -for now will cover with vanc 1g IVPB qd, zosyn 3.375g IVPB q8h -f/u blood cx -IVF -recommend off-loading foot in meanwhile -f/u venous duplex, arterial duplex RLE -f/u R foot XR: to check for subcutaneous gas, OM. with elevated ESR, CRP -in case of procedure, will send coags, T+S, keep NPO #Type 2 DM -at home, on metformin , glipizide- will hold rosa as NPO. avoid hypoglycemia -for now cover with ISS, BGM ACHS -f/u repeat A1c. In 09/2017: 6.8 #F/E/N IV NS 100 cc/hr continue to follow lytes NPO in case of procedure #PPX SCD's #Dispo med-surg, will await ID and podiatry recs - may need debridement Visit type - Emergency Visit Emergency Visit: Yes ED Registration Date: 04/18/18 Care time: The patient presented to the Emergency Department on the above date and was hospitalized for further evaluation of their emergent condition. - New Patient This patient is new to me today: Yes Date on this admission: 04/18/18 - Critical Care Critical Care patient: No
[2018-04-18] MEDS ORDERED: PIPERACILLIN/TAZOB 3.375 GM 3.375 GM/50 ML BAG IVPB ONE ×2 (03:13→10:40)
[2018-04-18] MEDS: PIPERACILLIN/TAZOB 3.375 GM 3.375 GM in DEXTROSE 5%-WATER - 50 ML IVPB SCH ×2 (03:39→10:54)
[2018-04-18 07:01] LABS: BASO % 0.5 % (0-2.0); EOS % 4.7 % (0-4.5); HEMOGLOBIN 13.1 GM/dL (11.7-16.9); LYMPH % 26.3 % (8-40); MCH 31.5 pg (25.7-33.7); MCHC 35.5 g/dl (32.0-35.9); MEAN CELL VOLUME 88.6 fl (80-96); MEAN PLT VOLUME 9.3 fl (7.5-11.1); MONO % 8.6 % (3.8-10.2); NEUT % 59.9 % (42.8-82.8); PLATELET COUNT 286 K/MM3 (134-434); RBC 4.17 M/mm3 (4.00-5.60); WHITE BLOOD COUNT 7.2 K/mm3 (4.0-10.0)
[2018-04-18 07:34] LABS: INR 0.95 (0.83-1.09); PROTHROMBIN TIME (PATIENT) 11.2 SEC (9.7-13.0)
[2018-04-18 07:45] LABS: ANION GAP 7 MMOL/L (8-16); BLOOD UREA NITROGEN 20 mg/dL (7-18); CALCIUM 8.5 mg/dL (8.5-10.1); CHLORIDE 106 mmol/L (98-107); CO2 25 mmol/L (21-32); CREATININE 0.5 mg/dL (0.55-1.3); GLUCOSE,RANDOM 138 mg/dL (74-106); PHOSPHOROUS 4.6 mg/dL (2.5-4.9); POTASSIUM 4.4 mmol/L (3.5-5.1); SODIUM 137 mmol/L (136-145)
--- NOTE | 2018-04-18 10:47 | EKG ---
Test Reason : Blood Pressure : / mmHG Vent. Rate : 087 BPM Atrial Rate : 087 BPM P-R Int : 150 ms QRS Dur : 094 ms QT Int : 368 ms P-R-T Axes : 039 -26 006 degrees QTc Int : 442 ms SINUS RHYTHM WITH OCCASIONAL PREMATURE VENTRICULAR COMPLEXES INFERIOR INFARCT (CITED ON OR BEFORE 22-DEC-2017) ABNORMAL ECG WHEN COMPARED WITH ECG OF 22-DEC-2017 13:41, PREMATURE VENTRICULAR COMPLEXES ARE NOW PRESENT T WAVE VARIATION Confirmed by SOBEIDA AKERS MD ([id number]) on 04/18/2018 10:47:25 AM Referred By: Confirmed By:SOBEIDA AKERS MD
--- NOTE | 2018-04-18 11:23 | PN ---
Progress Note, Physician Chief Complaint: Mr Valenzuela says he is feeling well. Denies cp, sob, n/v. Is not having pain in toe. - Current Medication List Current Medications: Active Medications Sodium Chloride (Normal Saline -) 1,000 mls @ 100 mls/hr IV ASDIR JERMAINE Last Admin: 04/18/18 03:39 Dose: 100 mls/hr Piperacillin Sod/Tazobactam (Sod 3.375 gm/ Dextrose) 50 mls @ 100 mls/hr IVPB Q8H-IV JERMAINE Vancomycin HCl (Vancomycin (Pre-Docked)) 1,000 mg IVPB DAILY JERMAINE; Protocol - Objective Vital Signs: Vital Signs Temperature 36.5 C 04/17/18 20:17 Pulse Rate 70 04/18/18 05:50 Respiratory Rate 18 04/18/18 05:50 Blood Pressure 124/77 04/18/18 05:50 O2 Sat by Pulse Oximetry (%) 100 04/18/18 05:50 Constitutional: Yes: Well Nourished, No Distress, Calm Cardiovascular: Yes: Regular Rate and Rhythm. No: Gallop, Murmur, Rub Respiratory: Yes: Regular, CTA Bilaterally. No: Rales, Rhonchi, Wheezes Gastrointestinal: Yes: Normal Bowel Sounds, Soft. No: Distention, Tenderness Extremities: Yes: Erythema (minimal), Other (dry ulcer on R foot) Edema: No Labs: CBC, BMP 04/18/18 05:30 04/18/18 05:30 INR, PTT INR 0.95 (0.83-1.09) 04/18/18 05:30 Problem List - Problems (1) Cellulitis of foot, right Assessment/Plan: -appears well controlled, minimal erythema and no ulcer -ID consulted -podiatry consulted -vancomycin and zosyn ordered, awaiting ID approval -? if can transition to oral antibiotic and discharge in next 24 hours Code(s): L03.115 - CELLULITIS OF RIGHT LOWER LIMB (2) Diabetes Assessment/Plan: -diabetic diet -FSBS and SSI -restart home regimen on discharge Code(s): E11.9 - TYPE 2 DIABETES MELLITUS WITHOUT COMPLICATIONS Qualifiers: Diabetes mellitus type: type 2 Diabetes mellitus buttermaker continuous churn insulin use: without fpc use Diabetes mellitus complication status: with skin complications Diabetes mellitus complication detail: with foot ulcer Qualified Code(s): E11.621 - Type 2 diabetes mellitus with foot ulcer; L97.509 - Non-pressure chronic ulcer of other part of unspecified foot with unspecified severity
[2018-04-18] MEDS ORDERED: HEMOQUE TEST 1 EACH EACH ONE (16:48)
[2018-04-18] MEDS ORDERED: INSULIN (NOVOLOG) ASPART 100 UNITS/ML 10ML VIAL ONE ×2 (16:56→21:25)
[2018-04-18] MEDS: INSULIN SLIDING SCALE (NOVOLOG) 1 VIAL SQ SCH ×2 (16:59→21:25)
[2018-04-18] MEDS ORDERED: PIPERACILLIN/TAZOB 3.375 GM 3.375 GM in DEXTROSE 5%-WATER - 50 ML IVPB SCH (18:00)
[2018-04-18 20:11] VITALS: BMI 28.1
[2018-04-18] MEDS ORDERED: VANCOMYCIN 1 GM in D5W (PRE-DOCKED) 1,000 MG/250 ML IVPB SCH (21:55)
--- NOTE | 2018-04-19 07:44 | PN ---
Physical Exam: SUBJECTIVE: Patient seen and examined by me at bedside. No acute events overnight Patient resting comfortably in bed eating breakfast Offers no complaints and denies any pain to the left toe. Otherwise, denies any fever, chills, nausea, vomiting, abdominal pain, chest pain, palpitations, shortness of breath. OBJECTIVE: Vital Signs Period Temp Pulse Resp BP Sys/Cedillo Pulse Ox Last 24 Hr 98.0 F-98.2 F 76-94 16-20 120-143/63-89 96-98 GENERAL: The patient is awake, alert, and fully oriented, in no acute distress. EYES: Sclera anicteric, conjunctiva clear. No ptosis. ENT: Moist mucous membranes. LUNGS: CTA b/l, no wheezes, no crackles, no accessory muscle use. HEART: RRR, normal S1 and S2 without murmur, rub or gallop. ABDOMEN: Soft, nontender, nondistended, normoactive bowel sounds EXTREMITIES: 1x1 right hallux ulceration with erythema (-) drainage. 2+ DP and PT pulses NEUROLOGICAL: No facial asymmetry. No focal deficits Laboratory Results 04/19/18 06:30 Active Medications Generic Name Dose Route Start Last Admin Trade Name Freq PRN Reason Stop Dose Admin Piperacillin Sod/Tazobactam 50 mls @ 100 mls/hr 04/18/18 18:00 Sod 3.375 gm/ Dextrose IVPB Q8H-IV JERMAINE Insulin Aspart 1 vial 04/18/18 16:30 04/18/18 21:25 Novolog Vial Sliding Scale - SQ 2 units ACHS JERMAINE Administration Protocol Vancomycin HCl 1,000 mg 04/18/18 21:55 Vancomycin (Pre-Docked) IVPB DAILY JERMAINE Protocol ASSESSMENT/PLAN: ASSESSMENT/PLAN: Patient is a 37 year old male who presented to the ED for Right hallux ulceration and admitted for further monitoring and management. Right Foot Cellulitis -With ulceration of right hallux at the plantar surface -Remains afebrile with no leukocytosis of clinical picture of sepsis -Continue IV Abx w/ Zosyn 3.375gm Q8H IVPB (Day #3)and Vancomycin 1gm daily IVPB (Day #3) -Blood cultures NGTD -Off loading for now -Awaiting podiatry and ID consult. -Will likely require I&D NIDDMII -A1c on this admission 8.8%. Will likely need insulin before discharge -ISS -BGM F/E/N -On no fluids -Electrolytes wnl -Diabetic control diet Prophylaxis -SCD's for DVT -No GI required Disposition -Full code -Awaiting ID and podiatry recommendations Lashonda Tripp [id number] Visit type - Emergency Visit Emergency Visit: Yes ED Registration Date: 04/18/18 Care time: The patient presented to the Emergency Department on the above date and was hospitalized for further evaluation of their emergent condition. - New Patient This patient is new to me today: Yes Date on this admission: 04/19/18 - Critical Care Critical Care patient: No
[2018-04-19 07:51] LABS: BASO % 0.6 % (0-2.0); EOS % 4.8 % (0-4.5); HEMATOCRIT 40.7 % (35.4-49); HEMOGLOBIN 14.3 GM/dL (11.7-16.9); LYMPH % 29.3 % (8-40); MCH 31.6 pg (25.7-33.7); MCHC 35.1 g/dl (32.0-35.9); MEAN CELL VOLUME 89.9 fl (80-96); MEAN PLT VOLUME 8.7 fl (7.5-11.1); MONO % 8.6 % (3.8-10.2); NEUT % 56.7 % (42.8-82.8); PLATELET COUNT 323 K/MM3 (134-434); RBC 4.53 M/mm3 (4.00-5.60); RDW 13.6 % (11.9-15.9); WHITE BLOOD COUNT 7.5 K/mm3 (4.0-10.0)
[2018-04-19 07:54] LABS: ANION GAP 4 MMOL/L (8-16); BLOOD UREA NITROGEN 16 mg/dL (7-18); CALCIUM 8.9 mg/dL (8.5-10.1); CHLORIDE 104 mmol/L (98-107); CO2 28 mmol/L (21-32); CREATININE 0.6 mg/dL (0.55-1.3); GLUCOSE,RANDOM 159 mg/dL (74-106); MAGNESIUM 2.1 mg/dL (1.8-2.4); PHOSPHOROUS 3.8 mg/dL (2.5-4.9); POTASSIUM 4.5 mmol/L (3.5-5.1); SODIUM 136 mmol/L (136-145)
--- NOTE | 2018-04-19 09:26 | CONSULT ---
Consult - text type - Consultation Consultation Note: Podiatry Consultation: 37 year old diabetic male, well known to me, presents with R great toe wound and cellulitis. Patient relates the wound started as a blister about 1 week ago , he noted increased redness/swelling with some drainage to the toe. Denies F/V /N/C/SOB/CP. Afebrile. PMhx: DM, s/p R 4th/5th toe amputation Meds: noted ALL: NKMA OBED: R foot: pedal pulses 2/4, TG wnl, CFT brisk to remaining toes. There is a healed 4th/5th ray amputation that is fully epithelialized. There is a plantar hallux IPJ diabetic ulcer with superficial eschar, (+) purulence, no probing to bone, no soft tissue crepitus, no streaking cellulitis. R foot XR: no evidence of osteomyelitis R foot MRI: report pending ESR: 48 arterial duplex: no evidence of occlusion Imp: 37 year old diabetic male with R hallux diabetic ulcer 1. IV abx per ID 2. Wound culture obtained 3. MRI report pending 4. Rx bactroban + DSD R foot 5. Will come by later and perform bedside debridement procedure. Thank you for the courtesy of this consultation. Manuelito Castaneda DPM
[2018-04-19] MEDS: INSULIN SLIDING SCALE (NOVOLOG) 1 VIAL SQ SCH ×3 (11:35→21:08)
[2018-04-19] MEDS: MUPIROCIN 2% TOPICAL OINTMENT 22 GM TUBE TP SCH (11:36)
[2018-04-19] MEDS ORDERED: INSULIN (NOVOLOG) ASPART 100 UNITS/ML 10ML VIAL ONE ×3 (11:39→21:04)
--- NOTE | 2018-04-19 12:18 | PN ---
Progress Note (short form) - Note Progress Note: ID CONSULT DICTATED CELLULITIS R GREAT TOE R/O OSTEOMYELITIS HX DIABETIC FOOT INFECTIONS/ AMPUTATED TOES AWAIT C/S, MRI EMPIRIC VANCOMYCIN/ CEFTRIAXONE
[2018-04-19] MEDS: CEFTRIAXONE 2 GM in DEXTROSE 5%-WATER 100 ML IVPB SCH (13:22)
--- NOTE | 2018-04-19 13:29 | CONS ---
DATE OF CONSULTATION: 04/19/2018 HISTORY OF PRESENT ILLNESS: The patient is a 37-year-old diabetic male evaluated for cellulitis of the right great toe - possibly osteomyelitis. The patient had developed a blister on the plantar aspect of his right great toe. It was opened by his with drainage of serous fluid. He subsequently developed worsening erythema, warmth and swelling of the right great toe. He presented to the emergency room on April 17, 2018. He had swelling of the right foot on the day of admission with some pain to the great toe when walking. He denied any associated fever or chills. He was evaluated by Podiatry . An x-ray was performed and was negative for fracture, dislocation or osteomyelitis. An MRI was ordered and is pending. He was empirically treated with vancomycin and Zosyn. PAST MEDICAL HISTORY: Positive for diabetes mellitus. He has a history of diabetic foot infections. He is status post amputation of the right 4th and 5th toes. Wound cultures in the past have grown group B strep. PAST SURGICAL HISTORY: Status post amputation of the right 4th and 5th toes. ALLERGIES: No known drug allergies. LABORATORY DATA: White count 7.5, creatinine 0.6, ESR 48, C-reactive protein 5.6. Blood cultures preliminarily negative. Wound cultures pending. PHYSICAL EXAMINATION: General: The patient is awake and alert. He does not appear to be acutely toxic. Vital Signs: Temperature 98.2, pulse 88 and regular, blood pressure 131/84, respiratory rate 20 per minute. HEENT: Sclerae anicteric. Heart: Heart sounds S1, S2. Lungs: Clear. Abdomen: Soft and nontender. Extremities: On examination of the right foot, there is an ulcer approximately 3 cm wide on the plantar aspect of the right great toe. It is shallow based. There is mild erythema and swelling of the right great toe. No purulent drainage is noted. IMPRESSION: 1. Cellulitis of the right great toe. 2. Rule out underlying osteomyelitis. 3. History of diabetic foot infections and toe amputations. PLAN: 1. Await blood and wound culture results. 2. Empiric antibiotic coverage with vancomycin and ceftriaxone. 3. Await MRI report. 4. Podiatry followup. 5. Local wound care. Thank you for the kind referral. KINSEY BALES M.D. [id number]
[2018-04-19] MEDS: VANCOMYCIN 1 GRAM (PRE-DOCKED) 1,000 MG/250 ML BAG IVPB SCH (13:42)
--- NOTE | 2018-04-19 14:39 | PN ---
Teaching Attending Note Name of Resident: Lashonda Tripp ATTENDING PHYSICIAN STATEMENT I saw and evaluated the patient. I reviewed the resident's note and discussed the case with the resident. I agree with the resident's findings and plan as documented. SUBJECTIVE: Mr Valenzuela is without complaint. Denies cp, sob, n/v OBJECTIVE: Last Vital Signs Temp Pulse Resp BP Pulse Ox 36.9 C 86 20 112/67 96 04/19/18 14:03 04/19/18 14:03 04/19/18 09:00 04/19/18 14:03 04/18/18 20:18 Gen: nad Pulm: ctab w/o w/r/r CV: rrr w/o m/r/g Abd: +bs, s/nt/nd Ext: dry ulceration on foot, no erythema noted CBC, BMP 04/19/18 06:30 04/19/18 06:30 ASSESSMENT AND PLAN: (1) Cellulitis of foot, right Assessment/Plan: -case d/w ID and podiatry -observed bedside debridement, no sign of infection -MRI read reviewed -will await final recommendations for antibiotics from ID Code(s): L03.115 - CELLULITIS OF RIGHT LOWER LIMB (2) Diabetes Assessment/Plan: -diabetic diet -FSBS and SSI -restart home regimen on discharge Code(s): E11.9 - TYPE 2 DIABETES MELLITUS WITHOUT COMPLICATIONS Qualifiers: Diabetes mellitus type: type 2 Diabetes mellitus alf insulin use: without terminal supervisor use Diabetes mellitus complication status: with skin complications Diabetes mellitus complication detail: with foot ulcer Qualified Code(s): E11.621 - Type 2 diabetes mellitus with foot ulcer; L97.509 - Non-pressure chronic ulcer of other part of unspecified foot with unspecified severity Problem List - Problems (1) Cellulitis of foot, right Code(s): L03.115 - CELLULITIS OF RIGHT LOWER LIMB (2) Diabetes Code(s): E11.9 - TYPE 2 DIABETES MELLITUS WITHOUT COMPLICATIONS Qualifiers: Diabetes mellitus type: type 2 Diabetes mellitus alf insulin use: without terminal supervisor use Diabetes mellitus complication status: with skin complications Diabetes mellitus complication detail: with foot ulcer Qualified Code(s): E11.621 - Type 2 diabetes mellitus with foot ulcer; L97.509 - Non-pressure chronic ulcer of other part of unspecified foot with unspecified severity
--- NOTE | 2018-04-19 16:33 | PN ---
Progress Note (short form) - Note Progress Note: Podiatry Procedure Note: Patient reevaluated at bedside NAD. Informed consent obtained. Excisional debridement of right great toe diabetic ulcer to the level of subcutaneous tissue utilizing sterile #15 blade scalpel and forceps. Patient tolerated the procedure well without complications. DSD applied to right foot. Manuelito Castaneda DPM
[2018-04-20] MEDS: VANCOMYCIN 1 GRAM (PRE-DOCKED) 1,000 MG/250 ML BAG IVPB SCH ×2 (00:17→13:01)
[2018-04-20] MEDS: INSULIN SLIDING SCALE (NOVOLOG) 1 VIAL SQ SCH ×5 (06:40→22:36)
[2018-04-20 08:31] LABS: HEMATOCRIT 42.6 % (35.4-49); HEMOGLOBIN 14.7 GM/dL (11.7-16.9); MCH 30.7 pg (25.7-33.7); MCHC 34.6 g/dl (32.0-35.9); MEAN CELL VOLUME 88.7 fl (80-96); MEAN PLT VOLUME 8.7 fl (7.5-11.1); PLATELET COUNT 354 K/MM3 (134-434); RDW 13.7 % (11.9-15.9); WHITE BLOOD COUNT 7.6 K/mm3 (4.0-10.0)
[2018-04-20] MEDS ORDERED: DEXTROSE 5%-WATER 100 ML IVPB ONE (10:50)
[2018-04-20] MEDS ORDERED: PT OWN MED DRAWER 7, Y5N ONE (10:50)
[2018-04-20] MEDS: MUPIROCIN 2% TOPICAL OINTMENT 22 GM TUBE TP SCH (10:59)
[2018-04-20] MEDS: CEFTRIAXONE 2 GM in DEXTROSE 5%-WATER 100 ML IVPB SCH (11:00)
[2018-04-20] MEDS ORDERED: INSULIN (NOVOLOG) ASPART 100 UNITS/ML 10ML VIAL ONE (11:38)
--- NOTE | 2018-04-20 12:37 | PN ---
Progress Note, Physician History of Present Illness: NO C/O FOOT PAIN NO FEVER/ CHILLS WOUND C/S PRELIM MSSA/ ENTEROCOCCUS - Current Medication List Current Medications: Active Medications Ceftriaxone Sodium 2 gm/ (Dextrose) 100 mls @ 200 mls/hr IVPB DAILY [facility]; Protocol Last Admin: 04/20/18 11:00 Dose: 200 mls/hr Vancomycin HCl (Vancomycin (Pre-Docked)) 1,000 mg in 250 mls @ 166.667 mls/hr IVPB BID@0100,1300 JERMAINE; Protocol Last Admin: 04/20/18 00:17 Dose: 166.667 mls/hr Insulin Aspart (Novolog Vial Sliding Scale -) 1 vial SQ ACHS [facility]; Protocol Last Admin: 04/20/18 11:47 Dose: 6 units Mupirocin (Bactroban 2% Ointment -) 1 applic TP DAILY [facility] Last Admin: 04/20/18 10:59 Dose: 1 applic - Objective Vital Signs: Vital Signs Temperature 98.1 F 04/20/18 06:02 Pulse Rate 85 04/20/18 06:02 Respiratory Rate 20 04/20/18 06:02 Blood Pressure 113/82 04/20/18 06:02 O2 Sat by Pulse Oximetry (%) 96 04/18/18 20:18 Constitutional: Yes: No Distress Eyes: Yes: Conjunctiva Clear Cardiovascular: Yes: Regular Rate and Rhythm, S1, S2 Respiratory: Yes: CTA Bilaterally Gastrointestinal: Yes: Normal Bowel Sounds, Soft. No: Tenderness Extremities: Yes: Other (PLANTAR ULCER GREAT TOE NO DRAINAGE) Labs: CBC, BMP 04/20/18 07:26 04/19/18 06:30 INR, PTT INR 0.95 (0.83-1.09) 04/18/18 05:30 Assessment/Plan INFECTED DIABETIC FOOT ULCER MRI REVIEWED WITH 2 RADIOLOGISTS + BONE MARROW EDEMA AT THE SITE OF THE ULCER C/W OSTEOMYELITIS AWAIT FINAL WOUND C/S WILL NEED PICC FOR OUTPATIENT TX ANTIBIOTIC CHOICE BASED ON C/S RESULT
--- NOTE | 2018-04-20 13:51 | PN ---
Physical Exam: SUBJECTIVE: Patient seen and examined by me at bedside. No acute events overnight Patient resting comfortably and offers no complaints. Denies any pain to the LE Patient had I&D yesterday by Podiatry at bedside Plans to have PICC line and IV abx for osteo Otherwise, denies any fever, chills, nausea, vomiting, abdominal pain, chest pain, palpitations, shortness of breath. OBJECTIVE: Vital Signs Period Temp Pulse Resp BP Sys/Cedillo Pulse Ox Last 24 Hr 98.1 F-98.4 F 85-87 20-20 112-113/67-82 GENERAL: The patient is awake, alert, and fully oriented, in no acute distress. EYES: Sclera anicteric, conjunctiva clear. No ptosis. ENT: Moist mucous membranes. LUNGS: CTA b/l, no wheezes, no crackles, no accessory muscle use. HEART: RRR, normal S1 and S2 without murmur, rub or gallop. ABDOMEN: Soft, nontender, nondistended, normoactive bowel sounds EXTREMITIES: 1x1 right hallux ulceration with erythema (-) drainage. 2+ DP and PT pulses NEUROLOGICAL: No facial asymmetry. No focal deficits Laboratory Results 04/20/18 07:26 04/19/18 06:30 Active Medications Generic Name Dose Route Start Last Admin Trade Name Glenis PRN Reason Stop Dose Admin Ceftriaxone Sodium 2 gm/ 100 mls @ 200 mls/hr 04/19/18 12:55 04/20/18 11:00 Dextrose IVPB 200 mls/hr DAILY JERMAINE Administration Protocol Vancomycin HCl 1,000 mg in 250 mls @ 166.667 mls/hr 04/19/18 13:00 04/20/18 13:01 Vancomycin (Pre-Docked) IVPB 166.667 mls/hr BID@0100,1300 JERMAINE Administration Protocol Insulin Aspart 1 vial 04/18/18 16:30 04/20/18 11:47 Novolog Vial Sliding Scale - SQ 6 units ACHS JERMAINE Administration Protocol Mupirocin 1 applic 04/19/18 10:00 04/20/18 10:59 Bactroban 2% Ointment - TP 1 applic DAILY JERMAINE Administration ASSESSMENT/PLAN: Patient is a 37 year old male who presented to the ED for Right hallux ulceration and admitted for further monitoring and management. Right Foot Cellulitis -With ulceration of right hallux at the plantar surface -Remains afebrile with no leukocytosis of clinical picture of sepsis -Continue IV Abx w/ Vancomycin 1gm daily IVPB (Day #4) -Blood cultures showing MRSA with sensitivity pending -MRI consistent with osteomyelitits -Plans for PICC and IV abx at home NIDDMII -A1c on this admission 8.8%. Will likely need insulin before discharge -Resume Glipizide 2.5mg BID -ISS -BGM F/E/N -On no fluids -Electrolytes wnl -Diabetic control diet Prophylaxis -SCD's for DVT -No GI required Disposition -Full code -Will need PICC line placement. Awaiting wound cultures sensitivity Lashonda Tripp [id number] Visit type - Emergency Visit Emergency Visit: Yes ED Registration Date: 04/18/18 Care time: The patient presented to the Emergency Department on the above date and was hospitalized for further evaluation of their emergent condition. - New Patient This patient is new to me today: No - Critical Care Critical Care patient: No
--- NOTE | 2018-04-20 14:19 | PN ---
Teaching Attending Note Name of Resident: Lashonda Tripp ATTENDING PHYSICIAN STATEMENT I saw and evaluated the patient. I reviewed the resident's note and discussed the case with the resident. I agree with the resident's findings and plan as documented with exceptions below. SUBJECTIVE: Patient seen and examined, denies any fevers, chills, or right foot pain. Feels well. OBJECTIVE: Vital Signs Period Temp Pulse Resp BP Sys/Cedillo Pulse Ox Last 24 Hr 98.1 F-98.7 F 82-87 20-20 112-124/70-82 Intake & Output 04/17/18 04/18/18 04/19/18 04/20/18 23:59 23:59 23:59 23:59 Intake Total 450 1974 1125 Balance 450 1974 1125 Weight 150 lb 154 lb 1.6 oz General: sitting in bed in no acute distress Extremities: right great toe, ulcer with scab and clean base on plantar aspect, no active discharge, erythema or tenderness noted Chest: CTAB, no rales or wheezing Abdomen:soft, NT, ND Home Medications Medication Instructions Recorded Glipizide 2.5 mg PO BID #30 tablet 03/27/17 metFORMIN HCL [Metformin ER 1,000 mg PO BID 04/18/18 Osmotic] Active Medications Glipizide (Glucotrol -) 2.5 mg PO BID@0700,1630 JERMAINE Ceftriaxone Sodium 2 gm/ (Dextrose) 100 mls @ 200 mls/hr IVPB DAILY [facility]; Protocol Last Admin: 04/20/18 11:00 Dose: 200 mls/hr Vancomycin HCl (Vancomycin (Pre-Docked)) 1,000 mg in 250 mls @ 166.667 mls/hr IVPB BID@0100,1300 JERMAINE; Protocol Last Admin: 04/20/18 13:01 Dose: 166.667 mls/hr Insulin Aspart (Novolog Vial Sliding Scale -) 1 vial SQ ACHS [facility]; Protocol Last Admin: 04/20/18 11:47 Dose: 6 units Mupirocin (Bactroban 2% Ointment -) 1 applic TP DAILY [facility] Last Admin: 04/20/18 10:59 Dose: 1 applic Laboratory Results - last 24 hr 04/19/18 04/19/18 04/20/18 16:19 21:07 05:40 WBC RBC Hgb Hct MCV MCH MCHC RDW Plt Count MPV POC Glucometer 240 240 156 04/20/18 04/20/18 07:26 11:09 WBC 7.6 RBC 4.80 Hgb 14.7 Hct 42.6 MCV 88.7 MCH 30.7 MCHC 34.6 RDW 13.7 Plt Count 354 MPV 8.7 POC Glucometer 257 Microbiology 04/19/18 09:10 Foot - Right Sole Gram Stain - Final 04/19/18 09:10 Foot - Right Sole Wound Culture - Preliminary Presumptive Mssa (Pbp2a Neg) Group D Strep Or Entero Coccus 04/18/18 03:45 Blood - Peripheral Venous Blood Culture - Preliminary NO GROWTH OBTAINED AFTER 48 HOURS, INCUBATION TO CONTINUE FOR 3 DAYS. 04/18/18 03:45 Blood - Peripheral Venous Blood Culture - Preliminary NO GROWTH OBTAINED AFTER 48 HOURS, INCUBATION TO CONTINUE FOR 3 DAYS. MRI results reviewed ASSESSMENT AND PLAN: 37 yom with PMhx of NIDDM, left 4th/5th metatarsal amputation here with Right great toe ulcer with osetomeylitis. -right great toe ulcer with osteomyelitis -NIDDM Plan: ID input appreciated. Ceftriaxone/vancomycin. Follow up wound cx, will need fdc abx and PICC pending cx studies. Resume glipizide. A1c 8.8 Patient counseled on need for better blood glucose control, home monitoring and foot hygeine follow up. Dispo d/c home in 24-48 hours pending final wound cx results and abx plan Plan discussed with patient in detail, all questions answered.
[2018-04-20] MEDS: glipiZIDE 5 MG TABLET (FP) PO SCH (16:54)
[2018-04-21] MEDS: VANCOMYCIN 1 GRAM (PRE-DOCKED) 1,000 MG/250 ML BAG IVPB SCH ×2 (00:40→12:31)
[2018-04-21] MEDS: glipiZIDE 5 MG TABLET (FP) PO SCH ×2 (06:13→17:02)
[2018-04-21] MEDS: INSULIN SLIDING SCALE (NOVOLOG) 1 VIAL SQ SCH ×4 (06:14→21:18)
[2018-04-21 07:29] LABS: HEMATOCRIT 42.3 % (35.4-49); HEMOGLOBIN 14.7 GM/dL (11.7-16.9); MCH 31.1 pg (25.7-33.7); MCHC 34.7 g/dl (32.0-35.9); MEAN CELL VOLUME 89.6 fl (80-96); MEAN PLT VOLUME 8.6 fl (7.5-11.1); PLATELET COUNT 330 K/MM3 (134-434); RBC 4.71 M/mm3 (4.00-5.60); RDW 13.6 % (11.9-15.9); WHITE BLOOD COUNT 6.8 K/mm3 (4.0-10.0)
--- NOTE | 2018-04-21 07:36 | PN ---
Physical Exam: SUBJECTIVE: Patient seen and examined by me at bedside. No acute events overnight. Offers no complaints Patient has osteomyelitis and will need PICC line placement and intermediate card tender Abx. Awaiting cultures and sensitivity. Otherwise, denies any fever, chills, nausea, vomiting, abdominal pain, chest pain, palpitations, shortness of breath. OBJECTIVE: Vital Signs Period Temp Pulse Resp BP Sys/Cedillo Pulse Ox Last 24 Hr 97.9 F-98.7 F 82-85 20-20 120-131/77-83 97 GENERAL: The patient is awake, alert, and fully oriented, in no acute distress. EYES: Sclera anicteric, conjunctiva clear. No ptosis. ENT: Moist mucous membranes. LUNGS: CTA b/l, no wheezes, no crackles, no accessory muscle use. HEART: RRR, normal S1 and S2 without murmur, rub or gallop. ABDOMEN: Soft, nontender, nondistended, normoactive bowel sounds EXTREMITIES: 1x1 right hallux ulceration with erythema (-) drainage. 2+ DP and PT pulses NEUROLOGICAL: No facial asymmetry. No focal deficits Laboratory Results 04/19/18 06:30 Active Medications Generic Name Dose Route Start Last Admin Trade Name Freq PRN Reason Stop Dose Admin Glipizide 2.5 mg 04/20/18 16:30 04/21/18 06:13 Glucotrol - PO 2.5 mg BID@0700,1630 JERMAINE Administration Ceftriaxone Sodium 2 gm/ 100 mls @ 200 mls/hr 04/19/18 12:55 04/20/18 11:00 Dextrose IVPB 200 mls/hr DAILY JERMAINE Administration Protocol Vancomycin HCl 1,000 mg in 250 mls @ 166.667 mls/hr 04/19/18 13:00 04/21/18 00:40 Vancomycin (Pre-Docked) IVPB 166.667 mls/hr BID@0100,1300 JERMAINE Administration Protocol Insulin Aspart 1 vial 04/18/18 16:30 04/21/18 06:14 Novolog Vial Sliding Scale - SQ 2 units ACHS JERMAINE Administration Protocol Mupirocin 1 applic 04/19/18 10:00 04/20/18 10:59 Bactroban 2% Ointment - TP 1 applic DAILY JERMAINE Administration Microbiology 04/19/18 09:10 Foot - Right Sole Gram Stain - Final 04/19/18 09:10 Foot - Right Sole Wound Culture - Preliminary Staphylococcus Aureus Pending Organism 04/18/18 03:45 Blood - Peripheral Venous Blood Culture - Preliminary NO GROWTH OBTAINED AFTER 72 HOURS, INCUBATION TO CONTINUE FOR 2 DAYS. 04/18/18 03:45 Blood - Peripheral Venous Blood Culture - Preliminary NO GROWTH OBTAINED AFTER 72 HOURS, INCUBATION TO CONTINUE FOR 2 DAYS. ASSESSMENT/PLAN: Patient is a 37 year old male who presented to the ED for Right hallux ulceration and admitted for further monitoring and management. Right Foot Cellulitis -With ulceration of right hallux at the plantar surface -Remains afebrile with no leukocytosis of clinical picture of sepsis -Continue IV Abx w/ Vancomycin 1gm daily IVPB (Day #5) -MRI consistent with osteomyelitits with Blood cultures showing staph Aureus with second organism pending and sensitivity pending -Plans for PICC and IV abx at home. Will determine which Abx and duration once sensitivity has resulted NIDDMII -A1c on this admission 8.8%. -Resume Glipizide 2.5mg BID -ISS -BGM F/E/N -On no fluids -Electrolytes wnl -Diabetic control diet Prophylaxis -SCD's for DVT -No GI required Disposition -Full code -Will need PICC line placement. Awaiting wound culture sensitivity Lashonda Tripp [id number] Visit type - Emergency Visit Emergency Visit: Yes ED Registration Date: 04/18/18 Care time: The patient presented to the Emergency Department on the above date and was hospitalized for further evaluation of their emergent condition. - New Patient This patient is new to me today: No - Critical Care Critical Care patient: No
[2018-04-21] MEDS ORDERED: DEXTROSE 5%-WATER 100 ML IVPB ONE (09:52)
[2018-04-21] MEDS: CEFTRIAXONE 2 GM in DEXTROSE 5%-WATER 100 ML IVPB SCH (09:57)
[2018-04-21] MEDS: MUPIROCIN 2% TOPICAL OINTMENT 22 GM TUBE TP SCH (09:58)
[2018-04-21] MEDS ORDERED: INSULIN (NOVOLOG) ASPART 100 UNITS/ML 10ML VIAL ONE (11:16)
--- NOTE | 2018-04-21 11:21 | PN ---
Teaching Attending Note Name of Resident: Lashonda Tripp ATTENDING PHYSICIAN STATEMENT I saw and evaluated the patient. I reviewed the resident's note and discussed the case with the resident. I agree with the resident's findings and plan as documented with exceptions below. SUBJECTIVE: Patient seen and examined. no new complaints or pain. OBJECTIVE: Vital Signs Period Temp Pulse Resp BP Sys/Cedillo Pulse Ox Last 24 Hr 97.9 F-98.7 F 82-85 20 120-124/77-80 97 Intake & Output 04/18/18 04/19/18 04/20/18 04/21/18 23:59 23:59 23:59 23:59 Intake Total 450 1974 2275 775 Balance 450 1974 227 775 Weight 154 lb 1.6 oz General: ambulating in room in no acute disress Extremities: right great toe plantar aspect with ulcer with clean base, no visible bone, no active discharge/erythema or foul smell Active Medications Glipizide (Glucotrol -) 2.5 mg PO BID@0700,1630 [facility] Last Admin: 04/21/18 06:13 Dose: 2.5 mg Ceftriaxone Sodium 2 gm/ (Dextrose) 100 mls @ 200 mls/hr IVPB DAILY [facility]; Protocol Last Admin: 04/21/18 09:57 Dose: 200 mls/hr Vancomycin HCl (Vancomycin (Pre-Docked)) 1,000 mg in 250 mls @ 166.667 mls/hr IVPB BID@0100,1300 [facility]; Protocol Last Admin: 04/21/18 00:40 Dose: 166.667 mls/hr Insulin Aspart (Novolog Vial Sliding Scale -) 1 vial SQ ACHS [facility]; Protocol Last Admin: 04/21/18 06:14 Dose: 2 units Mupirocin (Bactroban 2% Ointment -) 1 applic TP DAILY [facility] Last Admin: 04/21/18 09:58 Dose: 1 applic Laboratory Results - last 24 hr 04/20/18 04/20/18 04/20/18 11:09 16:47 21:55 WBC RBC Hgb Hct MCV MCH MCHC RDW Plt Count MPV ESR POC Glucometer 257 250 178 04/21/18 04/21/18 04/21/18 05:59 06:30 06:30 WBC 6.8 RBC 4.71 Hgb 14.7 Hct 42.3 MCV 89.6 MCH 31.1 MCHC 34.7 RDW 13.6 Plt Count 330 MPV 8.6 ESR 48 H POC Glucometer 186 Microbiology 04/19/18 09:10 Foot - Right Sole Gram Stain - Final 04/19/18 09:10 Foot - Right Sole Wound Culture - Preliminary Staphylococcus Aureus Pending Organism 04/18/18 03:45 Blood - Peripheral Venous Blood Culture - Preliminary NO GROWTH OBTAINED AFTER 72 HOURS, INCUBATION TO CONTINUE FOR 2 DAYS. 04/18/18 03:45 Blood - Peripheral Venous Blood Culture - Preliminary NO GROWTH OBTAINED AFTER 72 HOURS, INCUBATION TO CONTINUE FOR 2 DAYS. ASSESSMENT AND PLAN: 37 yom with PMhx of NIDDM, left 4th/5th metatarsal amputation here with Right great toe ulcer with osetomeylitis. -right great toe ulcer with osteomyelitis -NIDDM Plan: ID input appreciated. Ceftriaxone/vancomycin. Follow up wound cx, will need bed bug exterminator abx and PICC pending cx studies. Continue glipizide. A1c 8.8. Resume metformin on dc. Patient counseled on need for better blood glucose control, home monitoring and foot hygeine follow up. Dispo d/c home in 24-48 hours pending final wound cx results and abx plan Plan discussed with patient and CM in detail, all questions answered.
--- NOTE | 2018-04-21 14:22 | PN ---
Progress Note, Physician History of Present Illness: NO C/O FOOT PAIN NO FEVER/ CHILLS WOUND C/S MSSA/ DIPHTHEROIDS - Current Medication List Current Medications: Active Medications Glipizide (Glucotrol -) 2.5 mg PO BID@0700,1630 [facility] Last Admin: 04/21/18 06:13 Dose: 2.5 mg Ceftriaxone Sodium 2 gm/ (Dextrose) 100 mls @ 200 mls/hr IVPB DAILY [facility]; Protocol Last Admin: 04/21/18 09:57 Dose: 200 mls/hr Insulin Aspart (Novolog Vial Sliding Scale -) 1 vial SQ ACHS [facility]; Protocol Last Admin: 04/21/18 11:19 Dose: 2 units Mupirocin (Bactroban 2% Ointment -) 1 applic TP DAILY [facility] Last Admin: 04/21/18 09:58 Dose: 1 applic - Objective Vital Signs: Vital Signs Temperature 98.1 F 04/21/18 14:04 Pulse Rate 86 04/21/18 14:04 Respiratory Rate 20 04/20/18 23:43 Blood Pressure 132/77 04/21/18 14:04 O2 Sat by Pulse Oximetry (%) 97 04/20/18 21:00 Constitutional: Yes: No Distress Eyes: Yes: Conjunctiva Clear Cardiovascular: Yes: Regular Rate and Rhythm, S1, S2 Respiratory: Yes: CTA Bilaterally Gastrointestinal: Yes: Normal Bowel Sounds, Soft Extremities: Yes: Other (GREAT TOE ULCER CLEAN NO PURULENCE OR FOUL ODOR) Labs: CBC, BMP 04/21/18 06:30 04/19/18 06:30 INR, PTT INR 0.95 (0.83-1.09) 04/18/18 05:30 Assessment/Plan INFECTED DIABETIC FOOT ULCER MRI REVIEWED WITH 2 RADIOLOGISTS + BONE MARROW EDEMA AT THE SITE OF THE ULCER C/W OSTEOMYELITIS WILL NEED PICC FOR OUTPATIENT TX CEFTRIAXONE 2GM IVPB Q24H X 37D
[2018-04-22] MEDS: glipiZIDE 5 MG TABLET (FP) PO SCH (06:36)
[2018-04-22] MEDS: INSULIN SLIDING SCALE (NOVOLOG) 1 VIAL SQ SCH ×2 (06:36→11:07)
--- NOTE | 2018-04-22 09:14 | DS ---
Physical Exam: SUBJECTIVE: Patient seen and examined by me at bedside. No acute events overnight Patient offers no complaints Patient set for PICC line today and discharged home for home infusions Otherwise, denies any fever, chills, nausea, vomiting, abdominal pain, chest pain, palpitations, shortness of breath. OBJECTIVE: Vital Signs Period Temp Pulse Resp BP Sys/Cedillo Pulse Ox Last 24 Hr 97.8 F-98.4 F 80-89 19-20 95-132/69-88 98-98 PHYSICAL EXAM GENERAL: The patient is awake, alert, and fully oriented, in no acute distress. EYES: Sclera anicteric, conjunctiva clear. No ptosis. ENT: Moist mucous membranes. LUNGS: CTA b/l, no wheezes, no crackles, no accessory muscle use. HEART: RRR, normal S1 and S2 without murmur, rub or gallop. ABDOMEN: Soft, nontender, nondistended, normoactive bowel sounds EXTREMITIES: 1x1 right hallux ulceration with mild erythema (-) drainage. 2+ DP and PT pulses NEUROLOGICAL: No facial asymmetry. No focal deficits Laboratory Results 04/21/18 06:30 04/19/18 06:30 Microbiology 04/18/18 03:45 Blood - Peripheral Venous Blood Culture - Preliminary NO GROWTH OBTAINED AFTER 96 HOURS, INCUBATION TO CONTINUE FOR 1 DAYS. 04/18/18 03:45 Blood - Peripheral Venous Blood Culture - Preliminary NO GROWTH OBTAINED AFTER 96 HOURS, INCUBATION TO CONTINUE FOR 1 DAYS. 04/19/18 09:10 Foot - Right Sole Gram Stain - Final 04/19/18 09:10 Foot - Right Sole Wound Culture - Final Staphylococcus Aureus Diphtheroid/Corynebacterium PRE-HOSPITAL COURSE: Patient is a 37 year old male with a PMHx of NIDDMII, previous metatarsal amputations of right 4th an 5th toes who presented to the ED for right toe ulceration that worsened within two days. It initially started a blister, then the pain worsened and became an open ulceration with sanguinous drainage. Patient then reported difficulty walking due to pain, which prompted this hospital visit. X-Ray of the foot was done and showed a subcutaneous gas over 4th MT head and MTP. Right foot MRI was then done and showed diffuse subcutaneous soft tissue edema over 4th MTP jt, as well as OM. Patient was then admitted for further monitoring and management. HOSPITAL COURSE: Throughout hospitalization, patient was seen by infectious disease and podiatry. He was placed on IV antibiotic Ceftriaxone and Vancomycin with cultures taken. He had an excisional debridement of right great toe diabetic ulcer at bedside by podiatry and tolerated procedure well. MRI was reviewed by two radiologist and both read bone marrow edema at the site of the ulceration, consistent with osteomyelitis. Cultures of the wound revealed Staphylococcus Aureus and patient was switched to Ceftriaxone only. Patient was informed by Podiatry to follow up with him Wednesday (04/26/18) for re-evaluation. Patient set up for VNS/home infusions and medically cleared for discharge. Date of Admission:04/18/18 Date of Discharge: 04/22/18 Minutes to complete discharge: 45 Discharge Summary Reason For Visit: DIABETIC MELLITUS,CELLULUTIS OF RIGHT FOOT Current Active Problems Cellulitis of foot, right (Acute) Osteomyelitis (Acute) Diabetes (Chronic) Condition: Stable - Instructions Diet, Activity, Other Instructions: RECOMMENDATIONS: -You were seen here for a foot infection that reached the bone and requires you have chcf antibiotics through the IV -You will have a line on you so you are able to inject the antibiotics on your own with the help of a visiting nurse -You will need to have wound dressing daily and ointments applied to the wound. -You were found to have high sugar levels. You will need to have better control of your glucose and take all your medications. -If you experience worsening symptoms such as extreme leg pain or fevers >103, return to the emergency department -recommend home blood glucose monitoring before meals and at bedtime and maintain a diary. Notify your doctor if < 75 or persistently > 200 or any reading > 350 noted. -Routine PICC line care FOLLOW UP: -Please follow up with the infectious disease doctor, Dr. Lou, every week for weekly lab works -Please follow up with your Forming Department End Finder, Dr. Castaneda, for wound care instructions and management. You will need to go to the wound care center here at [facility] on the 5th floor on Wednesday (04/26/18) for follow up with Dr. Castaneda. The number to call after you are discharged is [phone]. -Please follow up with your primary care physician within 1-2 weeks and [employer]iner[facility] Teacher Assistant for management of your diabetes -Contact information will be in your discharge packet MEDICATIONS: -You will be taking IV antibiotic called Ceftriaxone for another 36 days . You will be taught how to infuse them and will be seen by a visiting nurse. -Please resume your home medications including Metformin and Glipizide Referrals: [facility] [place] [Provider Group] Prateek Lou MD [Staff Physician] - Prem Castaneda MD [Staff Physician] - Disposition: VNS/HOME HEALTH CARE - Home Medications Comprehensive Discharge Medication List: Ambulatory Orders Glipizide 2.5 mg PO BID #30 tablet 03/27/17 metFORMIN HCL [Metformin ER Osmotic] 1,000 mg PO BID 04/18/18 Ceftriaxone [Rocephin -] 2 gm IVPB DAILY #36 vial 04/22/18 This patient is new to me today: No Emergency Visit: Yes ED Registration Date: 04/18/18 Care time: The patient presented to the Emergency Department on the above date and was hospitalized for further evaluation of their emergent condition. Critical Care patient: No - Discharge Referral Referred to [facility] Med P.C.: No
[2018-04-22 10:21] VITALS: BP 114/77; PULSE 88; TEMP 98.2
[2018-04-22] MEDS ORDERED: DEXTROSE 5%-WATER 100 ML IVPB ONE (10:55)
[2018-04-22] MEDS: CEFTRIAXONE 2 GM in DEXTROSE 5%-WATER 100 ML IVPB SCH (10:57)
[2018-04-22] MEDS: MUPIROCIN 2% TOPICAL OINTMENT 22 GM TUBE TP SCH (10:57)
[2018-04-22] MEDS ORDERED: INSULIN (NOVOLOG) ASPART 100 UNITS/ML 10ML VIAL ONE (11:11)
--- NOTE | 2018-04-22 11:57 | PN ---
Teaching Attending Note Name of Resident: Lashonda Tripp ATTENDING PHYSICIAN STATEMENT I saw and evaluated the patient. I reviewed the resident's note and discussed the case with the resident. I agree with the resident's findings and plan as documented with exceptions below. SUBJECTIVE: Patient seen and examined. feeling well, no new concerns. OBJECTIVE: Vital Signs Period Temp Pulse Resp BP Sys/Cedillo Pulse Ox Last 24 Hr 97.8 F-98.4 F 80-89 20-20 109-132/70-88 98 Intake & Output 04/19/18 04/20/18 04/21/18 04/22/18 23:59 23:59 23:59 23:59 Intake Total 1974 2275 1650 400 Balance 1974 227 1650 400 General: sitting at edge of bed, having lunch Extremities: right great toe findings unchanged, no new erythema or discharge Laboratory Results - last 24 hr 04/21/18 04/21/18 04/22/18 16:57 21:17 06:35 POC Glucometer 216 217 196 04/22/18 11:05 POC Glucometer 172 ASSESSMENT AND PLAN: 37 yom with PMhx of NIDDM, left 4th/5th metatarsal amputation here with Right great toe ulcer with osetomeylitis. -right great toe ulcer with osteomyelitis -NIDDM Plan: Wound cx noted. ID input appreciated Ceftriaxone for 36 more days PICC line placed Wound care center follow up with Dr. Castaneda and Dr. Lou D/c home with VNS/home infusion. Patient counseled on need for home blood glucose monitoring and follow up. Resume home metformin/glipizide Plan discussed with patient in detail, all questions answered.
== END 2018-04-22 12:21 | disposition home health service (06) | DRG 344 ==
LOC: JER 20:15 → JERBED 04-18 00:21 → J6S 04-18 17:33
PROVIDERS: ADMIT Internal Medicine; ATTEND Hospitalist
PROC: 0JBQ0ZZ Excision of Right Foot Subcutaneous Tissue and Fascia, Open Approach (ICD-10-PCS; principal; 2018-04-19)
PROC: 02HV33Z Insertion of Infusion Device into Superior Vena Cava, Percutaneous Approach (ICD-10-PCS; 2018-04-22)
PROC: B548ZZA Ultrasonography of Superior Vena Cava, Guidance (ICD-10-PCS; 2018-04-22)
DX: E11.69 Type 2 diabetes mellitus with other specified complication (principal); M86.8X7 Other osteomyelitis, ankle and foot; L03.115 Cellulitis of right lower limb; I10 Essential (primary) hypertension; E11.621 Type 2 diabetes mellitus with foot ulcer; Z89.421 Acquired absence of other right toe(s); L97.519 Non-pressure chronic ulcer of other part of right foot with unspecified severity; Z79.4 Long term (current) use of insulin
CPT/HCPCS: 36415; 36569; 73630-TC-RT-FY; 73723-TC; 77001-TC-FY; 80048; 80053; 82962; 83036; 83735; 84100; 85025; 85027; 85610; 85651; 85730; 86140; 86850; 86900; 86901; 87040; 87070; 87077; 87186; 87205; 93005; 93010; 93926-TC; 93971-TC; 99284-25; C1751; J7030

== ENCOUNTER 2020-01-31 12:12 | Day surgery (SDC) | payer OTHER ==
[2020-01-31 14:05] VITALS: PULSE 74; TEMP 98.5
[2020-01-31 14:06] VITALS: BP 110/68
== END 2020-01-31 14:30 | disposition home or self-care (01) ==
LOC: FINFUSION 12:12 → FM/S 12:13 → FINFUSION 14:30
DX: A41.9 Sepsis, unspecified organism (principal)
CPT/HCPCS: 96365; 96366

== ENCOUNTER 2020-02-01 12:04 | Day surgery (SDC) | payer OTHER ==
[2020-02-01 12:42] VITALS: TEMP 98.4
[2020-02-01 14:02] LABS: HEMATOCRIT 39.9 % (35.4-49); HEMOGLOBIN 13.6 GM/dl (11.7-16.9); MCH 31.3 pg (25.7-33.7); MCHC 34.1 g/dl (32.0-35.9); MEAN CELL VOLUME 91.8 fl (80-96); MEAN PLT VOLUME 9.3 fl (7.5-11.1); PLATELET COUNT 425 K/MM3 (134-434); RBC 4.34 M/mm3 (4.00-5.60); RDW 12.6 % (11.9-15.9); WHITE BLOOD COUNT 10.6 K/mm3 (4.0-10.8)
[2020-02-01 14:03] VITALS: BP 121/71; PULSE 85
[2020-02-01 14:06] LABS: ALBUMIN 2.8 g/dl (3.4-5.0); BILIRUBIN,TOTAL 0.3 mg/dl (0.2-1); CALCIUM 8.7 mg/dl (8.5-10); CREATININE 0.8 mg/dl (0.55-1.3); POTASSIUM 4.2 mmol/L (3.5-5.1); TOT PROT 7.1 g/dl (6.4-8.2)
[2020-02-01 14:48] LABS: ERYTHROCYTE SEDIMENTATION RATE 82 mm/hr (0-10)
== END 2020-02-01 14:03 | disposition home or self-care (01) ==
LOC: FINFUSION 12:04 → FM/S 12:08 → FINFUSION 14:03
DX: A41.9 Sepsis, unspecified organism (principal)
CPT/HCPCS: 36415; 80053; 85027; 85651; 86140; 96365; 96366

== ENCOUNTER 2020-02-02 11:45 | Day surgery (SDC) | payer OTHER ==
[2020-02-02 12:09] VITALS: BP 126/65; PULSE 89; TEMP 95.5; BMI 26.2
== END 2020-02-02 14:00 | disposition home or self-care (01) ==
LOC: FINFUSION 11:45 → FM/S 11:51 → FINFUSION 14:00
DX: A41.9 Sepsis, unspecified organism (principal)
CPT/HCPCS: 96365; 96366

== ENCOUNTER 2020-02-03 12:01 | Day surgery (SDC) | payer OTHER ==
[2020-02-03 12:27] VITALS: BP 115/71; PULSE 89; TEMP 98.5; BMI 26.2
== END 2020-02-03 14:30 | disposition home or self-care (01) ==
LOC: SUATTDRO 12:01 → FINFUSION 12:01 → FM/S 12:13 → FINFUSION 14:30
PROVIDERS: ATTEND Nurse Practitioner Acute Care
DX: Z41.9 Encounter for procedure for purposes other than remedying health state, unspecified (principal)
CPT/HCPCS: 96365; 96366

== ENCOUNTER 2020-02-05 11:52 | Day surgery (SDC) | payer OTHER ==
[2020-02-05 12:22] VITALS: PULSE 89; TEMP 98.5
[2020-02-05 13:41] VITALS: BP 128/62
== END 2020-02-05 13:41 | disposition home or self-care (01) ==
LOC: FINFUSION 11:52 → FM/S 11:54 → FINFUSION 13:41
DX: A41.9 Sepsis, unspecified organism (principal)
CPT/HCPCS: 96365; 96366

== ENCOUNTER 2020-02-06 11:34 | Day surgery (SDC) | payer OTHER ==
[2020-02-06 11:55] VITALS: BP 109/65; PULSE 90; TEMP 98.3; BMI 26.2
== END 2020-02-06 13:50 | disposition home or self-care (01) ==
LOC: FINFUSION 11:34 → FM/S 11:41 → FINFUSION 13:50
DX: A41.9 Sepsis, unspecified organism (principal)
CPT/HCPCS: 96365; 96366; A6196; G0463-25

== ENCOUNTER 2020-02-07 11:20 | Day surgery (SDC) | payer OTHER ==
[2020-02-07 15:06] VITALS: BP 118/68; PULSE 72; TEMP 97.7
== END 2020-02-07 13:30 | disposition home or self-care (01) ==
LOC: FINFUSION 11:20 → SUATTDRO 11:20 → FM/S 11:22 → FINFUSION 13:30
PROVIDERS: ATTEND Internal Medicine Infectious Disease
DX: A41.9 Sepsis, unspecified organism (principal)
CPT/HCPCS: 96365; 96366

== ENCOUNTER 2020-02-08 11:58 | Day surgery (SDC) | payer OTHER ==
[2020-02-08 12:26] VITALS: TEMP 97.8
[2020-02-08 12:48] LABS: MCHC 33.4 g/dl (32.0-35.9)
[2020-02-08 12:52] LABS: HEMATOCRIT 43.3 % (35.4-49); HEMOGLOBIN 14.5 GM/dl (11.7-16.9); MCH 30.2 pg (25.7-33.7); MEAN CELL VOLUME 90.2 fl (80-96); MEAN PLT VOLUME 8.6 fl (7.5-11.1); PLATELET COUNT 427 K/MM3 (134-434); RDW 12.3 % (11.9-15.9); WHITE BLOOD COUNT 8.3 K/mm3 (4.0-10.8)
[2020-02-08 12:53] LABS: ALBUMIN 3.1 g/dl (3.4-5.0); BILIRUBIN,TOTAL 0.3 mg/dl (0.2-1); CALCIUM 9.1 mg/dl (8.5-10); CREATININE 0.8 mg/dl (0.55-1.3); POTASSIUM 4.2 mmol/L (3.5-5.1); TOT PROT 7.3 g/dl (6.4-8.2)
[2020-02-08 13:56] VITALS: BP 113/63; PULSE 83
== END 2020-02-08 13:56 | disposition home or self-care (01) ==
LOC: FINFUSION 11:58 → SUATTDRO 11:58 → FM/S 11:59 → FINFUSION 13:56
PROVIDERS: ATTEND Internal Medicine Infectious Disease
DX: A41.9 Sepsis, unspecified organism (principal)
CPT/HCPCS: 36415; 80053; 85027; 85651; 86140; 96365; 96366

== ENCOUNTER 2020-02-09 12:02 | Day surgery (SDC) | payer OTHER ==
[2020-02-09 12:18] VITALS: BP 110/68; PULSE 93; TEMP 98.6; BMI 26.2
== END 2020-02-09 13:55 | disposition home or self-care (01) ==
LOC: SUATTDRO 12:02 → FINFUSION 12:02 → FM/S 12:07 → FINFUSION 13:55
PROVIDERS: ATTEND Internal Medicine Infectious Disease
DX: A41.9 Sepsis, unspecified organism (principal)
CPT/HCPCS: 96365; 96366

== ENCOUNTER 2020-02-10 11:16 | Day surgery (SDC) | payer OTHER ==
[2020-02-10 11:41] VITALS: TEMP 98.3
[2020-02-10 13:13] VITALS: BP 112/65; PULSE 70
== END 2020-02-10 13:13 | disposition home or self-care (01) ==
LOC: SUATTDRO 11:16 → FINFUSION 11:16 → FM/S 11:20 → FINFUSION 13:13
PROVIDERS: ATTEND Internal Medicine Infectious Disease
DX: A41.9 Sepsis, unspecified organism (principal)
CPT/HCPCS: 96365; 96366

== ENCOUNTER 2020-02-11 11:10 | Day surgery (SDC) | payer OTHER ==
[2020-02-11 11:23] VITALS: BP 111/65; PULSE 93; TEMP 98.2; BMI 26.2
== END 2020-02-11 13:40 | disposition home or self-care (01) ==
LOC: FINFUSION 11:10 → SUATTDRO 11:10 → FM/S 11:13 → FINFUSION 13:40
PROVIDERS: ATTEND Internal Medicine Infectious Disease
DX: A41.9 Sepsis, unspecified organism (principal)
CPT/HCPCS: 96365; 96366

== ENCOUNTER 2020-02-12 10:47 | Day surgery (SDC) | payer OTHER ==
[2020-02-12 14:57] VITALS: BP 110/68; PULSE 82; TEMP 98.6
== END 2020-02-12 12:30 | disposition home or self-care (01) ==
LOC: FINFUSION 10:47 → SUATTDRO 10:47 → FM/S 10:48 → FINFUSION 12:30
PROVIDERS: ATTEND Internal Medicine Infectious Disease
DX: A41.9 Sepsis, unspecified organism (principal)
CPT/HCPCS: 96365; 96366

== ENCOUNTER 2020-02-13 11:20 | Day surgery (SDC) | payer OTHER ==
[2020-02-13 12:02] VITALS: BP 118/74; PULSE 94; TEMP 98.4; BMI 26.2
== END 2020-02-13 13:38 | disposition home or self-care (01) ==
LOC: FINFUSION 11:20 → FM/S 11:21 → FINFUSION 13:38
DX: A41.9 Sepsis, unspecified organism (principal)
CPT/HCPCS: 96365; 96366

== ENCOUNTER 2020-02-14 11:02 | Day surgery (SDC) | payer OTHER ==
[2020-02-14 13:21] VITALS: BP 122/86; PULSE 82; TEMP 98.4
== END 2020-02-14 12:45 | disposition home or self-care (01) ==
LOC: FINFUSION 11:02 → FM/S 11:03 → FINFUSION 12:45
DX: A41.9 Sepsis, unspecified organism (principal)
CPT/HCPCS: 96365; 96366

== ENCOUNTER 2020-02-15 10:32 | Day surgery (SDC) | payer OTHER ==
[2020-02-15 10:56] VITALS: BP 112/66; PULSE 87; TEMP 98.4; BMI 26.2
[2020-02-15 11:36] LABS: WHITE BLOOD COUNT 6.9 K/mm3 (4.0-10.8)
[2020-02-15 11:41] LABS: HEMATOCRIT 40.9 % (35.4-49); HEMOGLOBIN 13.6 GM/dl (11.7-16.9); MCH 30.2 pg (25.7-33.7); MCHC 33.3 g/dl (32.0-35.9); MEAN CELL VOLUME 90.6 fl (80-96); MEAN PLT VOLUME 8.5 fl (7.5-11.1); PLATELET COUNT 294 K/MM3 (134-434); RBC 4.52 M/mm3 (4.00-5.60); RDW 12.6 % (11.9-15.9)
[2020-02-15 11:47] LABS: ALBUMIN 2.9 g/dl (3.4-5.0); ALK PHOS 96 U/L (45-117); ANION GAP 5 MMOL/L (8-16); BILIRUBIN,TOTAL 0.4 mg/dl (0.2-1); CALCIUM 8.4 mg/dl (8.5-10); CHLORIDE 104 mmol/L (98-107); CO2 24 mmol/L (21-32); CREATININE 0.8 mg/dl (0.55-1.3); GLUCOSE,RANDOM 272 mg/dl (74-106); POTASSIUM 3.9 mmol/L (3.5-5.1); SGOT/AST 21 U/L (15-37); SGPT/ALT 18 U/L (13-61); SODIUM 133 mmol/L (136-145); TOT PROT 6.5 g/dl (6.4-8.2)
[2020-02-15 12:21] LABS: ERYTHROCYTE SEDIMENTATION RATE 33 mm/hr (0-10)
== END 2020-02-15 12:40 | disposition home or self-care (01) ==
LOC: FINFUSION 10:32 → FM/S 10:37 → FINFUSION 12:40
DX: A41.9 Sepsis, unspecified organism (principal)
CPT/HCPCS: 36415; 80053; 85027; 85651; 86140; 96365; 96366

== ENCOUNTER 2020-02-16 11:01 | Day surgery (SDC) | payer OTHER ==
[2020-02-16 11:20] VITALS: BP 105/70; PULSE 94; TEMP 98.3; BMI 26.2
== END 2020-02-16 13:00 | disposition home or self-care (01) ==
LOC: FINFUSION 11:01 → FM/S 11:02 → FINFUSION 13:00
DX: A41.9 Sepsis, unspecified organism (principal)
CPT/HCPCS: 96365; 96366; 96372

== ENCOUNTER 2020-02-17 11:04 | Day surgery (SDC) | payer OTHER ==
[2020-02-17 11:27] VITALS: BP 102/67; PULSE 76; TEMP 98.6
== END 2020-02-17 12:48 | disposition home or self-care (01) ==
LOC: FINFUSION 11:04 → FM/S 11:09 → FINFUSION 12:48
DX: A41.9 Sepsis, unspecified organism (principal)
CPT/HCPCS: 96365

== ENCOUNTER 2020-02-19 11:24 | Day surgery (SDC) | payer OTHER ==
[2020-02-19 11:39] VITALS: BP 100/67; PULSE 93; TEMP 98.4; BMI 26.2
== END 2020-02-19 12:55 | disposition home or self-care (01) ==
LOC: FINFUSION 11:24 → FM/S 11:27 → FINFUSION 12:55
DX: A41.9 Sepsis, unspecified organism (principal)
CPT/HCPCS: 96365; 96366

== ENCOUNTER 2020-02-20 11:24 | Day surgery (SDC) | payer OTHER ==
[2020-02-20 11:57] VITALS: BP 113/74; PULSE 94; TEMP 98.7; BMI 26.2
== END 2020-02-20 13:51 | disposition home or self-care (01) ==
LOC: FINFUSION 11:24 → SUATTDRO 11:24 → FM/S 11:29 → FINFUSION 13:51
PROVIDERS: ATTEND Internal Medicine Infectious Disease
DX: A41.9 Sepsis, unspecified organism (principal)
CPT/HCPCS: 11042; 96365; 96366

== ENCOUNTER 2020-02-23 11:28 | Day surgery (SDC) | payer OTHER ==
[2020-02-23 16:12] VITALS: BP 123/68; PULSE 82; TEMP 98.3
== END 2020-02-23 14:30 | disposition home or self-care (01) ==
LOC: FINFUSION 11:28 → SUATTDRO 11:28 → FM/S 11:29 → FINFUSION 14:30
PROVIDERS: ATTEND Internal Medicine Infectious Disease
DX: A41.9 Sepsis, unspecified organism (principal); M86.671 Other chronic osteomyelitis, right ankle and foot; L02.611 Cutaneous abscess of right foot
CPT/HCPCS: 96365

== ENCOUNTER 2020-02-24 11:38 | Day surgery (SDC) | payer OTHER ==
[2020-02-24 11:53] VITALS: BP 110/70; PULSE 92; TEMP 98.3; BMI 26.2
== END 2020-02-24 14:03 | disposition home or self-care (01) ==
LOC: SUATTDRO 11:38 → FINFUSION 11:38 → FM/S 11:40 → FINFUSION 14:03
PROVIDERS: ATTEND Internal Medicine Infectious Disease
DX: A41.9 Sepsis, unspecified organism (principal); M86.671 Other chronic osteomyelitis, right ankle and foot; L02.611 Cutaneous abscess of right foot
CPT/HCPCS: 96365; 96366

== ENCOUNTER 2020-02-25 10:38 | Day surgery (SDC) | payer OTHER ==
[2020-02-25 11:05] VITALS: BP 105/53; PULSE 88; TEMP 98.6; BMI 26.2
== END 2020-02-25 13:08 | disposition home or self-care (01) ==
LOC: SUATTDRO 10:38 → FINFUSION 10:38 → FM/S 10:41 → FINFUSION 13:08
PROVIDERS: ATTEND Internal Medicine Infectious Disease
DX: A41.9 Sepsis, unspecified organism (principal); M86.671 Other chronic osteomyelitis, right ankle and foot; L02.611 Cutaneous abscess of right foot
CPT/HCPCS: 96365; 96366

== ENCOUNTER 2020-02-26 11:32 | Day surgery (SDC) | payer OTHER ==
[2020-02-26 11:55] VITALS: BP 130/72; PULSE 80; TEMP 97.9
== END 2020-02-26 12:59 | disposition home or self-care (01) ==
LOC: FM/S 11:32 → FINFUSION 11:32 → SUATTDRO 11:32 → FINFUSION 12:59
PROVIDERS: ATTEND Internal Medicine Infectious Disease
DX: A41.9 Sepsis, unspecified organism (principal); M86.671 Other chronic osteomyelitis, right ankle and foot; L02.611 Cutaneous abscess of right foot
CPT/HCPCS: 96365

== ENCOUNTER 2020-02-27 10:58 | Day surgery (SDC) | payer OTHER ==
[2020-02-27 11:20] VITALS: TEMP 98.8
[2020-02-27 12:42] VITALS: BP 126/84; PULSE 89
== END 2020-02-27 12:43 | disposition home or self-care (01) ==
LOC: FINFUSION 10:58 → FM/S 11:12 → FINFUSION 12:43
DX: A41.9 Sepsis, unspecified organism (principal); M86.671 Other chronic osteomyelitis, right ankle and foot; L02.611 Cutaneous abscess of right foot
CPT/HCPCS: 96365

== ENCOUNTER 2020-02-28 12:33 | Day surgery (SDC) | payer OTHER ==
[2020-02-28 16:00] VITALS: BP 115/78; PULSE 82; TEMP 98.3
== END 2020-02-28 14:30 | disposition home or self-care (01) ==
LOC: FINFUSION 12:33 → FM/S 12:38 → FINFUSION 14:30
DX: A41.9 Sepsis, unspecified organism (principal); M86.671 Other chronic osteomyelitis, right ankle and foot; L02.611 Cutaneous abscess of right foot
CPT/HCPCS: 96365; 96366

== ENCOUNTER 2020-02-29 12:32 | Day surgery (SDC) | payer OTHER ==
[2020-02-29 13:16] VITALS: TEMP 98.6
[2020-02-29 14:15] VITALS: BP 120/77; PULSE 70
[2020-02-29 14:43] LABS: HEMATOCRIT 40.3 % (35.4-49); HEMOGLOBIN 13.6 GM/dl (11.7-16.9); MCH 30.8 pg (25.7-33.7); MCHC 33.8 g/dl (32.0-35.9); MEAN CELL VOLUME 91.1 fl (80-96); PLATELET COUNT 287 K/MM3 (134-434); RBC 4.42 M/mm3 (4.00-5.60); RDW 12.9 % (11.9-15.9); WHITE BLOOD COUNT 9.4 K/mm3 (4.0-10.8)
[2020-02-29 14:48] LABS: ALBUMIN 3.4 g/dl (3.4-5.0); BILIRUBIN,TOTAL 0.2 mg/dl (0.2-1); CALCIUM 8.9 mg/dl (8.5-10); CREATININE 0.9 mg/dl (0.55-1.3); POTASSIUM 4.6 mmol/L (3.5-5.1); TOT PROT 6.9 g/dl (6.4-8.2)
== END 2020-02-29 14:15 | disposition home or self-care (01) ==
LOC: FINFUSION 12:32 → FM/S 12:37 → FINFUSION 14:15
DX: A41.9 Sepsis, unspecified organism (principal)
CPT/HCPCS: 36415; 80053; 85027; 85651; 86140; 96365

== ENCOUNTER 2020-03-01 12:26 | Day surgery (SDC) | payer OTHER ==
[2020-03-01 16:15] VITALS: BP 128/73; PULSE 85; TEMP 98.6
== END 2020-03-01 16:18 | disposition home or self-care (01) ==
LOC: FINFUSION 12:26 → FM/S 12:31 → FINFUSION 16:18
DX: A41.9 Sepsis, unspecified organism (principal)
CPT/HCPCS: 96365; 96366

== ENCOUNTER 2020-04-16 14:35 | Inpatient (IN) | payer OTHER ==
[2020-04-16 17:28] LABS: BASO % 0.9 % (0-2.0); EOS % 2.2 % (0-4.5); HEMATOCRIT 40.9 % (35.4-49); HEMOGLOBIN 13.9 GM/dL (11.7-16.9); LYMPH % 24.5 % (8-40); MCH 30.6 pg (25.7-33.7); MCHC 34.1 g/dl (32.0-35.9); MEAN CELL VOLUME 89.8 fl (80-96); MONO % 7.3 % (3.8-10.2); NEUT % 65.1 % (42.8-82.8); PLATELET COUNT 538 K/MM3 (134-434); RBC 4.56 M/mm3 (4.00-5.60); RDW 14.1 % (11.9-15.9)
[2020-04-16] MEDS ORDERED: PIPERACILLIN/TAZOB 3.375 GM 3.375 GM in DEXTROSE 5%-WATER - 50 ML IVPB ONE (17:35)
[2020-04-16 17:54] LABS: POTASSIUM 4.8 mmol/L (3.5-5.1)
[2020-04-16 17:56] LABS: BLOOD UREA NITROGEN 24.5 mg/dL (7-18); CALCIUM 9.6 mg/dL (8.5-10.1)
[2020-04-16 17:59] LABS: CREATININE 0.8 mg/dL (0.55-1.3)
[2020-04-16 18:01] LABS: BILIRUBIN,TOTAL 0.2 mg/dL (0.2-1); TOT PROT 7.9 g/dl (6.4-8.2)
[2020-04-16] MEDS ORDERED: PIPERACILLIN/TAZOB 3.375 GM 3.375 GM/50 ML BAG IVPB ONE ×2 (18:01→18:10)
[2020-04-16 18:10] LABS: ERYTHROCYTE SEDIMENTATION RATE 77 mm/hr (0-10)
[2020-04-16] MEDS ORDERED: VANCOMYCIN 1 GM in D5W (PRE-DOCKED) 1,000 MG/250 ML IVPB SCH ×2 (20:45→21:30)
[2020-04-16] MEDS: SODIUM CHLORIDE 1,000 ML IV SCH (22:02)
[2020-04-16] MEDS: INSULIN SLIDING SCALE (NOVOLOG) 1 VIAL SQ SCH (22:03)
[2020-04-16 22:18] LABS: INR 1.03 (0.83-1.09); PROTHROMBIN TIME (PATIENT) 12.6 SEC (9.7-13.0)
[2020-04-16 22:21] LABS: ACTIVATED PTT 36.1 SECONDS (25.2-36.5)
[2020-04-17] MEDS ORDERED: PIPERACILLIN/TAZOB 2.25 GM 2.25 GM in DEXTROSE 5%-WATER - 50 ML IVPB SCH (02:00)
[2020-04-17 02:08] LABS: EPI CELLS 9 /uL (0-25.1); HYALINE CASTS 1 /uL (0-3.1); URINE APPEARANCE CLEAR; URINE BACTERIA 428 /uL (0-1359); URINE BILIRUBIN NEGATIVE (NEGATIVE); URINE COLOR YELLOW; URINE GLUCOSE (UA) NEGATIVE (NEGATIVE); URINE KETONE NEGATIVE (NEGATIVE); URINE LEUK ESTERASE NEGATIVE (NEGATIVE); URINE NITRITE NEGATIVE (NEGATIVE); URINE PROTEIN 4+ (NEGATIVE); URINE RBC 14 /uL (0-23.9); URINE UROBILINOGEN 0.2 mg/dL (0.2-1.0); URINE WBC 9 /uL (0-25.8)
[2020-04-17] MEDS: PIPERACILLIN/TAZOB 2.25 GM 2.25 GM in DEXTROSE 5%-WATER - 50 ML IVPB SCH ×3 (03:20→17:34)
[2020-04-17] MEDS ORDERED: PIPERACILLIN/TAZOBACTAM 2.25 GM VIAL IVPB ONE ×3 (03:20→16:30)
[2020-04-17] MEDS ORDERED: DEXTROSE 5%-WATER - 50 ML IVPB ONE ×3 (03:20→16:30)
[2020-04-17 04:11] VITALS: BMI 25.2
[2020-04-17] MEDS: INSULIN SLIDING SCALE (NOVOLOG) 1 VIAL SQ SCH ×4 (06:07→22:59)
[2020-04-17 09:23] LABS: EOS % 2.6 % (0-4.5); HEMATOCRIT 39.3 % (35.4-49); HEMOGLOBIN 13.4 GM/dL (11.7-16.9); LYMPH % 23.5 % (8-40); MCH 30.7 pg (25.7-33.7); MCHC 34.1 g/dl (32.0-35.9); MEAN CELL VOLUME 90.1 fl (80-96); MEAN PLT VOLUME 8.2 fl (7.5-11.1); NEUT % 65.9 % (42.8-82.8); PLATELET COUNT 468 K/MM3 (134-434); RBC 4.36 M/mm3 (4.00-5.60); RDW 14.1 % (11.9-15.9); WHITE BLOOD COUNT 7.7 K/mm3 (4.0-10.0)
[2020-04-17 09:52] LABS: POTASSIUM 4.6 mmol/L (3.5-5.1)
[2020-04-17 10:05] LABS: ALBUMIN 2.5 g/dl (3.4-5.0)
[2020-04-17 10:07] LABS: TOT PROT 6.7 g/dl (6.4-8.2)
[2020-04-17 10:09] LABS: CREATININE 0.7 mg/dL (0.55-1.3)
[2020-04-17 10:12] LABS: CALCIUM 8.6 mg/dL (8.5-10.1)
[2020-04-17 10:13] LABS: BLOOD UREA NITROGEN 17.4 mg/dL (7-18)
[2020-04-17 10:14] LABS: PHOSPHOROUS 3.3 mg/dL (2.5-4.9)
[2020-04-17 10:15] LABS: BILIRUBIN,TOTAL 0.3 mg/dL (0.2-1)
[2020-04-17] MEDS: HEPARIN NA (PORCINE) 5,000 UNITS/ML 1ML VIAL SQ SCH ×2 (16:28→22:08)
[2020-04-17] MEDS: SODIUM CHLORIDE 1,000 ML IV SCH (22:09)
[2020-04-18] MEDS ORDERED: PIPERACILLIN/TAZOBACTAM 3.375 GM VIAL IVPB ONE ×2 (00:44→17:20)
[2020-04-18] MEDS ORDERED: DEXTROSE 5%-WATER - 50 ML IVPB ONE ×2 (00:45→17:20)
[2020-04-18] MEDS: PIPERACILLIN/TAZOB 3.375 GM 3.375 GM in DEXTROSE 5%-WATER - 50 ML IVPB SCH ×3 (01:06→17:28)
[2020-04-18] MEDS: HEPARIN NA (PORCINE) 5,000 UNITS/ML 1ML VIAL SQ SCH (06:44)
[2020-04-18] MEDS: INSULIN SLIDING SCALE (NOVOLOG) 1 VIAL SQ SCH ×4 (06:49→21:15)
[2020-04-18] MEDS ORDERED: LIDOCAINE HCL 1%, 10 MG/ML (20ML VIAL) ONE (07:18)
[2020-04-18] MEDS ORDERED: HEPARIN NA (PORCINE) 5,000 UNITS/ML 1ML VIAL ONE (07:18)
[2020-04-18] MEDS ORDERED: PT OWN MED DRAWER 7, Y5N ONE ×2 (09:04→11:51)
[2020-04-18] MEDS ORDERED: MIDAZOLAM HCL 2 MG/2 ML SINGLE DOSE VIAL ONE ×3 (09:41→11:02)
[2020-04-18] MEDS ORDERED: ceFAZolin SODIUM 1 GM VIAL ONE (09:41)
[2020-04-18] MEDS ORDERED: ceFAZolin 2 GRAM PREMIX BAG IVPB ONE (10:00)
[2020-04-18] MEDS ORDERED: HEPARIN NA (PORCINE) 5,000 UNITS/ML 1ML VIAL SQ ONE (10:06)
[2020-04-18] MEDS ORDERED: LIDOCAINE HCL 1%, 10 MG/ML (20ML VIAL) NR ONE (10:06)
[2020-04-18] MEDS ORDERED: PROPOFOL 20 ML ONE (11:43)
[2020-04-18] MEDS ORDERED: KETOROLAC TROMETHAMINE 30 MG/1 ML VIAL ONE (11:44)
[2020-04-18] MEDS ORDERED: oxyCODONE HCL 5 MG TABLET PO PRN (12:19)
[2020-04-18] MEDS ORDERED: ONDANSETRON 4 MG/2 ML VIAL IVPUSH PRN ×2 (12:19→13:05)
[2020-04-18] MEDS ORDERED: SODIUM CHLORIDE 1,000 ML IV SCH (13:05)
[2020-04-18] MEDS: APIXABAN 5 MG TABLET PO SCH ×3 (13:07→21:14)
[2020-04-18] MEDS: oxyCODONE HCL 5 MG TABLET PO PRN ×2 (14:58→21:16)
[2020-04-18] MEDS ORDERED: INSULIN (NOVOLOG) ASPART 100 UNITS/ML 10ML VIAL ONE (21:12)
[2020-04-19] MEDS ORDERED: PIPERACILLIN/TAZOBACTAM 3.375 GM VIAL IVPB ONE ×2 (02:34→09:28)
[2020-04-19] MEDS ORDERED: DEXTROSE 5%-WATER - 50 ML IVPB ONE ×2 (02:34→09:28)
[2020-04-19] MEDS: PIPERACILLIN/TAZOB 3.375 GM 3.375 GM in DEXTROSE 5%-WATER - 50 ML IVPB SCH ×2 (02:37→09:34)
[2020-04-19] MEDS: INSULIN SLIDING SCALE (NOVOLOG) 1 VIAL SQ SCH ×2 (06:53→12:13)
[2020-04-19 09:35] LABS: HEMATOCRIT 36.6 % (35.4-49); HEMOGLOBIN 12.5 GM/dL (11.7-16.9); MCH 30.6 pg (25.7-33.7); MCHC 34.1 g/dl (32.0-35.9); MEAN CELL VOLUME 89.7 fl (80-96); MEAN PLT VOLUME 8.7 fl (7.5-11.1); PLATELET COUNT 419 K/MM3 (134-434); RBC 4.08 M/mm3 (4.00-5.60); RDW 13.7 % (11.9-15.9); WHITE BLOOD COUNT 10.7 K/mm3 (4.0-10.0)
[2020-04-19] MEDS: APIXABAN 5 MG TABLET PO SCH (09:35)
[2020-04-19 10:03] LABS: POTASSIUM 4.6 mmol/L (3.5-5.1)
[2020-04-19 10:05] LABS: CALCIUM 8.5 mg/dL (8.5-10.1)
[2020-04-19 10:06] LABS: BLOOD UREA NITROGEN 10.5 mg/dL (7-18)
[2020-04-19 10:09] LABS: CREATININE 0.8 mg/dL (0.55-1.3); PHOSPHOROUS 3.3 mg/dL (2.5-4.9)
[2020-04-19 15:49] VITALS: BP 117/59; PULSE 84; TEMP 98.3
[2020-04-19] MEDS ORDERED: ATORVASTATIN CA 20 MG TABLET (FP) PO SCH (22:00)
== END 2020-04-19 16:29 | disposition home or self-care (01) | DRG 181 ==
LOC: JER 14:35 → JERBED 19:10 → J6S 04-17 03:16
PROVIDERS: ADMIT Hospitalist; ATTEND Internal Medicine
PROC: 047Q3ZZ Dilation of Left Anterior Tibial Artery, Percutaneous Approach (ICD-10-PCS; 2020-04-18)
PROC: B41DZZZ Fluoroscopy of Aorta and Bilateral Lower Extremity Arteries (ICD-10-PCS; 2020-04-18)
PROC: 047N3ZZ Dilation of Left Popliteal Artery, Percutaneous Approach (ICD-10-PCS; principal; 2020-04-18 11:00)
DX: E11.52 Type 2 diabetes mellitus with diabetic peripheral angiopathy with gangrene (principal); I77.1 Stricture of artery; M86.9 Osteomyelitis, unspecified; E11.69 Type 2 diabetes mellitus with other specified complication; E78.5 Hyperlipidemia, unspecified; E11.65 Type 2 diabetes mellitus with hyperglycemia
CPT/HCPCS: 36415; 73630-TC-LT; 73630-TC-RT-FY; 73718-TC-RT; 75635-TC; 76000-TC-FY; 80048; 80053; 80061; 81003; 82962; 83036; 83605; 83721; 83735; 84100; 85025; 85027; 85610; 85651; 85730; 86140; 86850; 86900; 86901; 87040; 93005; 93010; 94760; 99285-25; C9803; J1644; Q9967; U0003

== ENCOUNTER 2020-04-29 11:02 | Inpatient (IN) | payer OTHER ==
[2020-04-29 13:49] LABS: BASO % 1.4 % (0-2.0); EOS % 0.5 % (0-4.5); HEMATOCRIT 37.4 % (35.4-49); HEMOGLOBIN 12.5 GM/dL (11.7-16.9); LYMPH % 12.1 % (8-40); MCH 29.8 pg (25.7-33.7); MCHC 33.5 g/dl (32.0-35.9); MEAN CELL VOLUME 89.1 fl (80-96); MEAN PLT VOLUME 8.9 fl (7.5-11.1); MONO % 5.4 % (3.8-10.2); NEUT % 80.6 % (42.8-82.8); PLATELET COUNT 523 K/MM3 (134-434); RDW 13.9 % (11.9-15.9); WHITE BLOOD COUNT 12.8 K/mm3 (4.0-10.0)
[2020-04-29 14:14] LABS: POTASSIUM 4.9 mmol/L (3.5-5.1)
[2020-04-29 14:17] LABS: CALCIUM 9.4 mg/dL (8.5-10.1)
[2020-04-29 14:18] LABS: ALBUMIN 2.7 g/dl (3.4-5.0); BLOOD UREA NITROGEN 24.7 mg/dL (7-18)
[2020-04-29 14:22] LABS: BILIRUBIN,TOTAL 0.5 mg/dL (0.2-1)
[2020-04-29 14:23] LABS: TOT PROT 7.8 g/dl (6.4-8.2)
[2020-04-29] MEDS ORDERED: HEPARIN SOD,PORK IN 0.45% NACL 25,000 UNITS/500 ML INFUS.BAG IVPB SCH ×2 (14:30→16:30)
[2020-04-29 14:35] LABS: ERYTHROCYTE SEDIMENTATION RATE 88 mm/hr (0-10)
[2020-04-29] MEDS ORDERED: SODIUM CHLORIDE 1,000 ML IV STA (14:40)
[2020-04-29 15:43] LABS: INR 1.32 (0.83-1.09); PROTHROMBIN TIME (PATIENT) 16.1 SEC (9.7-13.0)
[2020-04-29 15:45] LABS: ACTIVATED PTT 41.9 SECONDS (25.2-36.5)
[2020-04-29] MEDS ORDERED: HEPARIN NA (PORCINE) 5,000 UNITS/ML 1ML VIAL ONE (15:50)
[2020-04-29] MEDS ORDERED: HEPARIN NA (PORCINE) 5,000 UNITS/ML 1ML VIAL IVPUSH PRN (16:18)
[2020-04-29] MEDS: HEPARIN NA (PORCINE) 5,000 UNITS/ML 1ML VIAL IVPUSH PRN ×2 (16:20→23:20)
[2020-04-29] MEDS ORDERED: SODIUM CHLORIDE 1,000 ML IV SCH (16:45)
[2020-04-29] MEDS: INSULIN SLIDING SCALE (NOVOLOG) 1 VIAL SQ SCH (22:51)
[2020-04-29 23:12] LABS: INR 1.15 (0.83-1.09); PROTHROMBIN TIME (PATIENT) 14.1 SEC (9.7-13.0)
[2020-04-29 23:14] LABS: ACTIVATED PTT 44.7 SECONDS (25.2-36.5)
[2020-04-30] MEDS: INSULIN SLIDING SCALE (NOVOLOG) 1 VIAL SQ SCH ×4 (06:48→22:33)
[2020-04-30 09:14] LABS: BASO % 0.8 % (0-2.0); EOS % 0.8 % (0-4.5); HEMATOCRIT 38.8 % (35.4-49); HEMOGLOBIN 13.2 GM/dL (11.7-16.9); LYMPH % 22.2 % (8-40); MCHC 33.9 g/dl (32.0-35.9); MEAN CELL VOLUME 88.3 fl (80-96); MEAN PLT VOLUME 8.6 fl (7.5-11.1); MONO % 6.9 % (3.8-10.2); NEUT % 69.3 % (42.8-82.8); PLATELET COUNT 541 K/MM3 (134-434); RBC 4.39 M/mm3 (4.00-5.60); RDW 13.5 % (11.9-15.9); WHITE BLOOD COUNT 11.2 K/mm3 (4.0-10.0)
[2020-04-30 09:22] LABS: INR 1.15 (0.83-1.09); PROTHROMBIN TIME (PATIENT) 13.9 SEC (9.7-13.0)
[2020-04-30 09:24] LABS: ACTIVATED PTT 60.4 SECONDS (25.2-36.5)
[2020-04-30 09:48] LABS: POTASSIUM 4.2 mmol/L (3.5-5.1)
[2020-04-30 10:26] LABS: CALCIUM 8.9 mg/dL (8.5-10.1)
[2020-04-30 10:27] LABS: ALBUMIN 2.6 g/dl (3.4-5.0); BLOOD UREA NITROGEN 15.1 mg/dL (7-18); MAGNESIUM 1.8 mg/dL (1.8-2.4)
[2020-04-30 10:30] LABS: CREATININE 0.7 mg/dL (0.55-1.3); PHOSPHOROUS 3.4 mg/dL (2.5-4.9)
[2020-04-30 10:31] LABS: TOT PROT 7.5 g/dl (6.4-8.2)
[2020-04-30 10:35] LABS: BILIRUBIN,TOTAL 0.2 mg/dL (0.2-1)
[2020-04-30] MEDS ORDERED: MIDAZOLAM HCL 2 MG/2 ML SINGLE DOSE VIAL ONE (15:22)
[2020-04-30] MEDS ORDERED: SUCCINYLCHOLINE CHLORIDE 200 MG/10 ML SYRINGE ONE (15:22)
[2020-04-30] MEDS ORDERED: PROPOFOL 20 ML ONE ×5 (15:22→17:28)
[2020-04-30] MEDS ORDERED: ceFAZolin SODIUM 1 GM VIAL IVPB ONE (16:31)
[2020-04-30] MEDS ORDERED: LIDOCAINE HCL 1%, 10 MG/ML (20ML VIAL) NR ONE ×3 (16:34)
[2020-04-30] MEDS ORDERED: LIDOCAINE HCL 1%, 10 MG/ML (20ML VIAL) ONE (17:20)
[2020-04-30] MEDS ORDERED: HEPARIN NA (PORCINE) 5,000 UNITS/ML 1ML VIAL ONE (17:20)
[2020-04-30] MEDS ORDERED: ALTEPLASE (CATHFLO) 15 MG in SODIUM CHLORIDE 150 ML IA ONE ×3 (18:30)
[2020-04-30] MEDS: ALTEPLASE 2 MG VIAL CVP ONE ×2 (18:34→19:00)
[2020-04-30] MEDS: SODIUM CHLORIDE 1,000 ML IV SCH (19:00)
[2020-04-30] MEDS: HEPARIN INFUSION - 25,000 UNITS/500 ML INFUS.BAG IVPB SCH (19:00)
[2020-04-30] MEDS ORDERED: ONDANSETRON 4 MG/2 ML VIAL IVPUSH PRN (19:26)
[2020-04-30] MEDS: HYDROmorphone HCl 2 MG/ML VIAL IVPUSH ONE ×2 (19:35→19:40)
[2020-04-30] MEDS ORDERED: HYDROmorphone HCl 2 MG/ML VIAL IVPUSH ONE (20:15)
[2020-05-01 02:58] LABS: BASO % 0.1 % (0-2.0); HEMATOCRIT 38.6 % (35.4-49); HEMOGLOBIN 12.9 GM/dL (11.7-16.9); MCH 29.7 pg (25.7-33.7); MCHC 33.5 g/dl (32.0-35.9); MEAN CELL VOLUME 88.7 fl (80-96); MEAN PLT VOLUME 8.6 fl (7.5-11.1); MONO % 2.7 % (3.8-10.2); NEUT % 92.2 % (42.8-82.8); PLATELET COUNT 413 K/MM3 (134-434); RBC 4.35 M/mm3 (4.00-5.60); RDW 13.5 % (11.9-15.9); WHITE BLOOD COUNT 16.8 K/mm3 (4.0-10.0)
[2020-05-01 03:00] LABS: POTASSIUM 4.2 mmol/L (3.5-5.1)
[2020-05-01 03:02] LABS: ALBUMIN 2.3 g/dl (3.4-5.0); CALCIUM 8.6 mg/dL (8.5-10.1)
[2020-05-01 03:06] LABS: CREATININE 0.7 mg/dL (0.55-1.3)
[2020-05-01 03:07] LABS: BILIRUBIN,TOTAL 0.2 mg/dL (0.2-1); TOT PROT 7.1 g/dl (6.4-8.2)
[2020-05-01] MEDS: morphine SULFATE 4 MG/ML VIAL IVPUSH PRN ×4 (03:54→22:35)
[2020-05-01 04:11] LABS: ANISOCYTOSIS 3+; MACROCYTOSIS 2+; PLATELET ESTIMATE NORMAL
[2020-05-01] MEDS: INSULIN SLIDING SCALE (NOVOLOG) 1 VIAL SQ SCH ×4 (06:25→22:33)
[2020-05-01 09:36] LABS: BASO % 0.2 % (0-2.0); HEMATOCRIT 36.4 % (35.4-49); HEMOGLOBIN 12.5 GM/dL (11.7-16.9); LYMPH % 12.6 % (8-40); MCHC 34.3 g/dl (32.0-35.9); MEAN CELL VOLUME 87.4 fl (80-96); MEAN PLT VOLUME 8.3 fl (7.5-11.1); MONO % 6.2 % (3.8-10.2); PLATELET COUNT 406 K/MM3 (134-434); RBC 4.17 M/mm3 (4.00-5.60); RDW 13.5 % (11.9-15.9); WHITE BLOOD COUNT 14.7 K/mm3 (4.0-10.0)
[2020-05-01 09:47] LABS: INR 1.14 (0.83-1.09)
[2020-05-01 09:50] LABS: ACTIVATED PTT 30.9 SECONDS (25.2-36.5)
[2020-05-01 10:07] LABS: POTASSIUM 3.6 mmol/L (3.5-5.1)
[2020-05-01 10:09] LABS: ALBUMIN 2.2 g/dl (3.4-5.0); BLOOD UREA NITROGEN 15.6 mg/dL (7-18); CALCIUM 8.3 mg/dL (8.5-10.1)
[2020-05-01 10:12] LABS: CREATININE 0.6 mg/dL (0.55-1.3)
[2020-05-01 10:14] LABS: BILIRUBIN,TOTAL 0.2 mg/dL (0.2-1)
[2020-05-01] MEDS ORDERED: ALTEPLASE (CATHFLO) 15 MG in SODIUM CHLORIDE 150 ML IA ONE (10:15)
[2020-05-01] MEDS: MUPIROCIN 2% TOPICAL OINTMENT FOR DECOLONIZATION NS SCH ×2 (10:51→22:54)
[2020-05-01] MEDS ORDERED: HEPARIN NA (PORCINE) 5,000 UNITS/ML 1ML VIAL ONE ×2 (14:26→18:55)
[2020-05-01] MEDS ORDERED: ceFAZolin SODIUM 1 GM VIAL IVPB ONE ×2 (17:55→18:10)
[2020-05-01] MEDS ORDERED: PROMETHAZINE HCL 25 MG/1 ML VIAL IVPUSH PRN (17:59)
[2020-05-01] MEDS ORDERED: oxyCODONE HCL 5 MG TABLET PO PRN (17:59)
[2020-05-01] MEDS ORDERED: ONDANSETRON 4 MG/2 ML VIAL IVPUSH PRN (17:59)
[2020-05-01] MEDS ORDERED: PROPOFOL 20 ML ONE ×3 (18:00→18:56)
[2020-05-01 18:07] LABS: BASO % 0.4 % (0-2.0); EOS % 0.1 % (0-4.5); HEMATOCRIT 35.3 % (35.4-49); HEMOGLOBIN 11.8 GM/dL (11.7-16.9); LYMPH % 11.8 % (8-40); MCH 29.6 pg (25.7-33.7); MCHC 33.5 g/dl (32.0-35.9); MEAN CELL VOLUME 88.3 fl (80-96); MEAN PLT VOLUME 8.3 fl (7.5-11.1); MONO % 7.3 % (3.8-10.2); NEUT % 80.4 % (42.8-82.8); PLATELET COUNT 320 K/MM3 (134-434); RBC 3.99 M/mm3 (4.00-5.60); RDW 13.5 % (11.9-15.9); WHITE BLOOD COUNT 14.8 K/mm3 (4.0-10.0)
[2020-05-01 18:21] LABS: INR 1.24 (0.83-1.09); PROTHROMBIN TIME (PATIENT) 15.2 SEC (9.7-13.0)
[2020-05-01 18:24] LABS: ACTIVATED PTT 38.7 SECONDS (25.2-36.5)
[2020-05-01] MEDS ORDERED: RIVAROXABAN 20 MG TABLET PO SCH (20:00)
[2020-05-01 20:48] LABS: INR 1.43 (0.83-1.09); PROTHROMBIN TIME (PATIENT) 17.4 SEC (9.7-13.0)
[2020-05-01] MEDS: CHLORHEXIDINE GLUCONATE 4% CLEANSER FOR DECOLONIZATION TP SCH (22:54)
[2020-05-02] MEDS: morphine SULFATE 4 MG/ML VIAL IVPUSH PRN ×3 (05:10→23:00)
[2020-05-02] MEDS: INSULIN SLIDING SCALE (NOVOLOG) 1 VIAL SQ SCH ×3 (07:01→17:44)
[2020-05-02] MEDS ORDERED: HEPARIN NA (PORCINE) 5,000 UNITS/ML 1ML VIAL IVPUSH PRN ×2 (08:11)
[2020-05-02] MEDS ORDERED: HEPARIN NA (PORCINE) 5,000 UNITS/ML 1ML VIAL IVPUSH ONE (08:11)
[2020-05-02] MEDS: HEPARIN INFUSION - 25,000 UNITS/500 ML INFUS.BAG IVPB SCH ×3 (09:51→20:02)
[2020-05-02 11:14] LABS: INR 1.48 (0.83-1.09); PROTHROMBIN TIME (PATIENT) 17.7 SEC (9.7-13.0)
[2020-05-02] MEDS: MUPIROCIN 2% TOPICAL OINTMENT FOR DECOLONIZATION NS SCH (12:58)
[2020-05-02 18:53] LABS: BASO % 0.5 % (0-2.0); EOS % 0.4 % (0-4.5); HEMATOCRIT 31.6 % (35.4-49); HEMOGLOBIN 10.6 GM/dL (11.7-16.9); LYMPH % 13.9 % (8-40); MCH 29.4 pg (25.7-33.7); MCHC 33.7 g/dl (32.0-35.9); MEAN CELL VOLUME 87.3 fl (80-96); MEAN PLT VOLUME 8.5 fl (7.5-11.1); MONO % 9.1 % (3.8-10.2); NEUT % 76.1 % (42.8-82.8); PLATELET COUNT 310 K/MM3 (134-434); RBC 3.62 M/mm3 (4.00-5.60); RDW 13.3 % (11.9-15.9); WHITE BLOOD COUNT 12.5 K/mm3 (4.0-10.0)
[2020-05-02 18:59] LABS: INR 1.19 (0.83-1.09); PROTHROMBIN TIME (PATIENT) 14.3 SEC (9.7-13.0)
[2020-05-02] MEDS: SODIUM CHLORIDE 1,000 ML IV SCH (19:00)
[2020-05-02 19:02] LABS: ACTIVATED PTT 50.1 SECONDS (25.2-36.5)
[2020-05-02] MEDS ORDERED: fentaNYL CITRATE 250 MCG/5 ML VIAL ONE (19:46)
[2020-05-02] MEDS ORDERED: PROPOFOL 20 ML ONE ×4 (19:46→22:03)
[2020-05-02] MEDS ORDERED: MIDAZOLAM HCL 2 MG/2 ML SINGLE DOSE VIAL ONE ×2 (19:46)
[2020-05-02] MEDS: ALTEPLASE (CATHFLO) 15 MG in SODIUM CHLORIDE 150 ML IA SCH ×2 (20:01→20:02)
[2020-05-02] MEDS ORDERED: ceFAZolin SODIUM 1 GM VIAL IVPB ONE (20:03)
[2020-05-02] MEDS ORDERED: PROTAMINE SULFATE 50 MG/5 ML VIAL ONE (22:02)
[2020-05-03] MEDS: MUPIROCIN 2% TOPICAL OINTMENT FOR DECOLONIZATION NS SCH ×3 (00:04→21:06)
[2020-05-03] MEDS: INSULIN SLIDING SCALE (NOVOLOG) 1 VIAL SQ SCH ×5 (00:04→21:05)
[2020-05-03] MEDS: CHLORHEXIDINE GLUCONATE 4% CLEANSER FOR DECOLONIZATION TP SCH ×2 (00:04→21:06)
[2020-05-03] MEDS: SODIUM CHLORIDE 1,000 ML IV SCH ×2 (00:04→19:42)
[2020-05-03 04:05] LABS: BASO % 0.4 % (0-2.0); EOS % 0.7 % (0-4.5); HEMATOCRIT 29.8 % (35.4-49); LYMPH % 11.8 % (8-40); MCH 29.5 pg (25.7-33.7); MCHC 33.4 g/dl (32.0-35.9); MEAN CELL VOLUME 88.2 fl (80-96); MONO % 7.8 % (3.8-10.2); NEUT % 79.3 % (42.8-82.8); PLATELET COUNT 259 K/MM3 (134-434); RBC 3.38 M/mm3 (4.00-5.60); RDW 13.7 % (11.9-15.9); WHITE BLOOD COUNT 11.8 K/mm3 (4.0-10.0)
[2020-05-03 04:15] LABS: INR 1.2 (0.83-1.09); PROTHROMBIN TIME (PATIENT) 14.5 SEC (9.7-13.0)
[2020-05-03 04:18] LABS: ACTIVATED PTT 92.1 SECONDS (25.2-36.5)
[2020-05-03] MEDS: morphine SULFATE 4 MG/ML VIAL IVPUSH PRN ×4 (05:42→19:41)
[2020-05-03] MEDS: HEPARIN INFUSION - 25,000 UNITS/500 ML INFUS.BAG IVPB SCH ×2 (09:44→21:06)
[2020-05-03] MEDS: GABAPENTIN 300 MG CAPSULE PO SCH ×2 (09:48→21:05)
[2020-05-03] MEDS ORDERED: HYDROmorphone HCL 2 MG TABLET PO PRN (11:35)
[2020-05-03 13:31] LABS: BASO % 0.7 % (0-2.0); EOS % 0.4 % (0-4.5); HEMATOCRIT 30.3 % (35.4-49); HEMOGLOBIN 10.2 GM/dL (11.7-16.9); LYMPH % 13.4 % (8-40); MCH 29.4 pg (25.7-33.7); MCHC 33.6 g/dl (32.0-35.9); MEAN CELL VOLUME 87.7 fl (80-96); MEAN PLT VOLUME 8.8 fl (7.5-11.1); MONO % 8.1 % (3.8-10.2); NEUT % 77.4 % (42.8-82.8); PLATELET COUNT 280 K/MM3 (134-434); RBC 3.45 M/mm3 (4.00-5.60); RDW 13.4 % (11.9-15.9); WHITE BLOOD COUNT 13.7 K/mm3 (4.0-10.0)
[2020-05-03 13:43] LABS: INR 1.16 (0.83-1.09); PROTHROMBIN TIME (PATIENT) 14.2 SEC (9.7-13.0)
[2020-05-03 13:46] LABS: ACTIVATED PTT 41.1 SECONDS (25.2-36.5)
[2020-05-03] MEDS ORDERED: POLYETHYLENE GLYCOL 3350 119 GM BTL PO ONE (19:44)
[2020-05-03] MEDS ORDERED: BISACODYL 5 MG TABLET.DR (FP) PO ONE (19:44)
[2020-05-03] MEDS: ACETAMINOPHEN 325 MG TABLET (FP) PO PRN (21:05)
[2020-05-03 21:44] LABS: BASO % 0.6 % (0-2.0); EOS % 0.7 % (0-4.5); HEMOGLOBIN 9.7 GM/dL (11.7-16.9); LYMPH % 12.6 % (8-40); MCH 30.3 pg (25.7-33.7); MCHC 34.8 g/dl (32.0-35.9); MEAN PLT VOLUME 8.8 fl (7.5-11.1); MONO % 8.4 % (3.8-10.2); NEUT % 77.7 % (42.8-82.8); PLATELET COUNT 268 K/MM3 (134-434); RBC 3.21 M/mm3 (4.00-5.60); RDW 13.2 % (11.9-15.9); WHITE BLOOD COUNT 14.6 K/mm3 (4.0-10.0)
[2020-05-04] MEDS: morphine SULFATE 4 MG/ML VIAL IVPUSH PRN ×2 (04:04→08:05)
[2020-05-04] MEDS: INSULIN SLIDING SCALE (NOVOLOG) 1 VIAL SQ SCH ×4 (06:36→22:57)
[2020-05-04 07:34] LABS: BASO % 0.5 % (0-2.0); EOS % 1.2 % (0-4.5); HEMATOCRIT 27.7 % (35.4-49); HEMOGLOBIN 9.3 GM/dL (11.7-16.9); LYMPH % 13.7 % (8-40); MCH 29.6 pg (25.7-33.7); MCHC 33.6 g/dl (32.0-35.9); MEAN CELL VOLUME 88.1 fl (80-96); MEAN PLT VOLUME 9.4 fl (7.5-11.1); MONO % 9.5 % (3.8-10.2); NEUT % 75.1 % (42.8-82.8); PLATELET COUNT 280 K/MM3 (134-434); RBC 3.14 M/mm3 (4.00-5.60); RDW 13.5 % (11.9-15.9); WHITE BLOOD COUNT 14.7 K/mm3 (4.0-10.0)
[2020-05-04] MEDS ORDERED: PROMETHAZINE HCL 25 MG/1 ML VIAL IVPB PRN (08:40)
[2020-05-04] MEDS ORDERED: ONDANSETRON 4 MG/2 ML VIAL IVPUSH PRN (08:40)
[2020-05-04] MEDS ORDERED: oxyCODONE HCL 5 MG TABLET PO PRN (08:40)
[2020-05-04] MEDS ORDERED: PROPOFOL 20 ML ONE (09:18)
[2020-05-04] MEDS ORDERED: MIDAZOLAM HCL 2 MG/2 ML SINGLE DOSE VIAL ONE (09:18)
[2020-05-04] MEDS ORDERED: ROCURONIUM BROMIDE 50 MG/5 ML SYRINGE ONE (09:20)
[2020-05-04] MEDS ORDERED: ceFAZolin SODIUM 1 GM VIAL IVPB ONE (09:38)
[2020-05-04] MEDS ORDERED: HYDROmorphone HCl 2 MG/ML VIAL ONE (09:47)
[2020-05-04] MEDS ORDERED: EPHEDRINE SULFATE/0.9% NACL/PF 50 MG/10 ML SYRINGE NR ONE (09:58)
[2020-05-04] MEDS ORDERED: HYDROmorphone *PCA* 10MG/50ML DISP.SYRIN PCA SCH (10:15)
[2020-05-04] MEDS ORDERED: SODIUM CHLORIDE 0.9% P/F 10 ML VIAL IJ ONE (10:16)
[2020-05-04] MEDS ORDERED: ONDANSETRON 4 MG/2 ML VIAL ONE (10:17)
[2020-05-04] MEDS ORDERED: DEXAMETHASONE SOD PHOSPHATE 4 MG/1 ML VIAL ONE (10:17)
[2020-05-04] MEDS ORDERED: ceFAZolin SODIUM 1 GM VIAL ONE (10:20)
[2020-05-04] MEDS: MUPIROCIN 2% TOPICAL OINTMENT FOR DECOLONIZATION NS SCH ×2 (11:43→21:22)
[2020-05-04] MEDS: GABAPENTIN 300 MG CAPSULE PO SCH ×3 (11:44→21:22)
[2020-05-04] MEDS: APIXABAN 5 MG TABLET PO SCH ×2 (12:25→21:22)
[2020-05-04] MEDS ORDERED: PCA PUMP NR ONE ×2 (13:45→18:01)
[2020-05-04] MEDS ORDERED: PT OWN MED DRAWER 7, Y5N ONE (18:24)
[2020-05-04] MEDS: DOCUSATE SODIUM 100 MG CAPSULE (FP) PO SCH (18:45)
[2020-05-04] MEDS: POLYETHYLENE GLYCOL 3350 119 GM BTL PO SCH (19:21)
[2020-05-04] MEDS: CHLORHEXIDINE GLUCONATE 4% CLEANSER FOR DECOLONIZATION TP SCH (21:22)
[2020-05-04] MEDS: SENNOSIDES 8.6MG TABLET (FP) PO SCH (21:23)
[2020-05-05] MEDS: INSULIN SLIDING SCALE (NOVOLOG) 1 VIAL SQ SCH ×4 (06:28→21:00)
[2020-05-05] MEDS: GABAPENTIN 300 MG CAPSULE PO SCH ×2 (10:04→21:01)
[2020-05-05] MEDS: DOCUSATE SODIUM 100 MG CAPSULE (FP) PO SCH (10:05)
[2020-05-05] MEDS: POLYETHYLENE GLYCOL 3350 119 GM BTL PO SCH (10:05)
[2020-05-05] MEDS: APIXABAN 5 MG TABLET PO SCH ×2 (10:05→21:01)
[2020-05-05 10:26] LABS: BASO % 0.9 % (0-2.0); EOS % 0.3 % (0-4.5); HEMATOCRIT 30.4 % (35.4-49); HEMOGLOBIN 10.3 GM/dL (11.7-16.9); LYMPH % 11.4 % (8-40); MEAN CELL VOLUME 88.2 fl (80-96); MEAN PLT VOLUME 9.3 fl (7.5-11.1); MONO % 6.7 % (3.8-10.2); NEUT % 80.7 % (42.8-82.8); PLATELET COUNT 350 K/MM3 (134-434); RBC 3.44 M/mm3 (4.00-5.60); RDW 13.7 % (11.9-15.9); WHITE BLOOD COUNT 15.7 K/mm3 (4.0-10.0)
[2020-05-05] MEDS: MUPIROCIN 2% TOPICAL OINTMENT FOR DECOLONIZATION NS SCH ×2 (10:55→21:01)
[2020-05-05] MEDS ORDERED: MAGNESIUM CITRATE 300 ML BOTTLE PO ONE (11:16)
[2020-05-05] MEDS: CHLORHEXIDINE GLUCONATE 4% CLEANSER FOR DECOLONIZATION TP SCH (21:01)
[2020-05-05] MEDS: SENNOSIDES 8.6MG TABLET (FP) PO SCH (21:02)
[2020-05-05] MEDS: morphine SULFATE 4 MG/ML VIAL IVPUSH PRN (21:02)
[2020-05-06] MEDS: morphine SULFATE 4 MG/ML VIAL IVPUSH PRN ×4 (02:18→21:47)
[2020-05-06] MEDS: INSULIN SLIDING SCALE (NOVOLOG) 1 VIAL SQ SCH ×4 (06:15→21:47)
[2020-05-06 06:46] LABS: BASO % 0.8 % (0-2.0); EOS % 2.1 % (0-4.5); HEMATOCRIT 29.8 % (35.4-49); HEMOGLOBIN 10.2 GM/dL (11.7-16.9); LYMPH % 15.3 % (8-40); MCH 29.9 pg (25.7-33.7); MCHC 34.3 g/dl (32.0-35.9); MEAN CELL VOLUME 87.1 fl (80-96); MEAN PLT VOLUME 8.9 fl (7.5-11.1); MONO % 7.6 % (3.8-10.2); NEUT % 74.2 % (42.8-82.8); PLATELET COUNT 409 K/MM3 (134-434); RBC 3.42 M/mm3 (4.00-5.60); RDW 13.6 % (11.9-15.9); WHITE BLOOD COUNT 16.1 K/mm3 (4.0-10.0)
[2020-05-06] MEDS: DOCUSATE SODIUM 100 MG CAPSULE (FP) PO SCH (09:51)
[2020-05-06] MEDS: GABAPENTIN 300 MG CAPSULE PO SCH ×2 (09:51→21:47)
[2020-05-06] MEDS: APIXABAN 5 MG TABLET PO SCH ×2 (09:51→21:47)
[2020-05-06] MEDS: POLYETHYLENE GLYCOL 3350 119 GM BTL PO SCH (09:52)
[2020-05-06] MEDS: ACETAMINOPHEN 325 MG TABLET (FP) PO PRN (10:38)
[2020-05-06] MEDS ORDERED: PROMETHAZINE HCL 25 MG/1 ML VIAL IVPB PRN (19:47)
[2020-05-06] MEDS ORDERED: PROMETHAZINE HCL 25 MG/1 ML VIAL IVPUSH PRN (19:47)
[2020-05-06] MEDS ORDERED: ONDANSETRON 4 MG/2 ML VIAL IVPUSH PRN ×2 (19:47)
[2020-05-06] MEDS: SENNOSIDES 8.6MG TABLET (FP) PO SCH (21:46)
[2020-05-07] MEDS: morphine SULFATE 4 MG/ML VIAL IVPUSH PRN ×2 (04:35→08:43)
[2020-05-07] MEDS: INSULIN SLIDING SCALE (NOVOLOG) 1 VIAL SQ SCH ×4 (06:23→21:02)
[2020-05-07] MEDS: GABAPENTIN 300 MG CAPSULE PO SCH ×2 (09:35→21:02)
[2020-05-07] MEDS: DOCUSATE SODIUM 100 MG CAPSULE (FP) PO SCH ×2 (09:35→21:01)
[2020-05-07] MEDS: APIXABAN 5 MG TABLET PO SCH ×2 (09:35→21:02)
[2020-05-07] MEDS: POLYETHYLENE GLYCOL 3350 119 GM BTL PO SCH (09:35)
[2020-05-07] MEDS ORDERED: DOCUSATE SODIUM 100 MG CAPSULE (FP) PO SCH (10:00)
[2020-05-07] MEDS ORDERED: INSULIN (NOVOLOG) ASPART 100 UNITS/ML 10ML VIAL ONE (11:44)
[2020-05-07] MEDS: oxyCODONE HCL 5 MG TABLET PO PRN ×2 (13:48→21:05)
[2020-05-07] MEDS: SENNOSIDES 8.6MG TABLET (FP) PO SCH (21:02)
[2020-05-08] MEDS: MAG HYDROX/ALH/SMC/DPHA/LIDO 240 ML MOUTHWASH MM SCH ×4 (01:00→17:47)
[2020-05-08] MEDS: oxyCODONE HCL 5 MG TABLET PO PRN ×2 (05:27→10:21)
[2020-05-08] MEDS: INSULIN SLIDING SCALE (NOVOLOG) 1 VIAL SQ SCH ×4 (06:32→21:19)
[2020-05-08] MEDS ORDERED: PT OWN MED DRAWER 7, Y5N ONE (06:55)
[2020-05-08 09:27] LABS: BASO % 0.8 % (0-2.0); EOS % 1.7 % (0-4.5); HEMATOCRIT 28.5 % (35.4-49); HEMOGLOBIN 9.6 GM/dL (11.7-16.9); LYMPH % 14.9 % (8-40); MCH 29.8 pg (25.7-33.7); MCHC 33.6 g/dl (32.0-35.9); MEAN CELL VOLUME 88.7 fl (80-96); MEAN PLT VOLUME 8.5 fl (7.5-11.1); MONO % 8.1 % (3.8-10.2); NEUT % 74.5 % (42.8-82.8); PLATELET COUNT 539 K/MM3 (134-434); RBC 3.22 M/mm3 (4.00-5.60); RDW 13.7 % (11.9-15.9); WHITE BLOOD COUNT 14.4 K/mm3 (4.0-10.0)
[2020-05-08] MEDS: DOCUSATE SODIUM 100 MG CAPSULE (FP) PO SCH ×2 (09:27→21:19)
[2020-05-08] MEDS: APIXABAN 5 MG TABLET PO SCH ×2 (09:27→21:19)
[2020-05-08] MEDS: GABAPENTIN 300 MG CAPSULE PO SCH ×2 (09:27→21:19)
[2020-05-08] MEDS: ASPIRIN COATED 81 MG TABLET.EC PO SCH (09:27)
[2020-05-08 09:54] LABS: POTASSIUM 5.5 mmol/L (3.5-5.1)
[2020-05-08] MEDS: POLYETHYLENE GLYCOL 3350 119 GM BTL PO SCH (10:22)
[2020-05-08 10:29] LABS: CALCIUM 8.7 mg/dL (8.5-10.1)
[2020-05-08 10:30] LABS: BLOOD UREA NITROGEN 11.2 mg/dL (7-18); MAGNESIUM 2.2 mg/dL (1.8-2.4)
[2020-05-08 10:33] LABS: CREATININE 0.7 mg/dL (0.55-1.3); PHOSPHOROUS 4.3 mg/dL (2.5-4.9)
[2020-05-08 10:34] LABS: BILIRUBIN,TOTAL 0.6 mg/dL (0.2-1); TOT PROT 6.9 g/dl (6.4-8.2)
[2020-05-08] MEDS: morphine SULFATE 4 MG/ML VIAL IVPUSH PRN (21:08)
[2020-05-08] MEDS: SENNOSIDES 8.6MG TABLET (FP) PO SCH (21:19)
[2020-05-09] MEDS: MAG HYDROX/ALH/SMC/DPHA/LIDO 240 ML MOUTHWASH MM SCH ×3 (00:26→13:05)
[2020-05-09] MEDS: oxyCODONE HCL 5 MG TABLET PO PRN ×5 (00:26→21:42)
[2020-05-09] MEDS: INSULIN SLIDING SCALE (NOVOLOG) 1 VIAL SQ SCH ×4 (06:39→21:44)
[2020-05-09 09:31] LABS: BASO % 0.7 % (0-2.0); EOS % 1.1 % (0-4.5); HEMATOCRIT 27.7 % (35.4-49); HEMOGLOBIN 9.7 GM/dL (11.7-16.9); LYMPH % 13.1 % (8-40); MCH 30.1 pg (25.7-33.7); MCHC 34.8 g/dl (32.0-35.9); MEAN CELL VOLUME 86.5 fl (80-96); MEAN PLT VOLUME 8.3 fl (7.5-11.1); MONO % 8.8 % (3.8-10.2); NEUT % 76.3 % (42.8-82.8); PLATELET COUNT 627 K/MM3 (134-434); RDW 13.7 % (11.9-15.9); WHITE BLOOD COUNT 13.7 K/mm3 (4.0-10.0)
[2020-05-09 09:50] LABS: POTASSIUM 4.9 mmol/L (3.5-5.1)
[2020-05-09] MEDS: POLYETHYLENE GLYCOL 3350 119 GM BTL PO SCH (09:52)
[2020-05-09] MEDS: ASPIRIN COATED 81 MG TABLET.EC PO SCH (09:52)
[2020-05-09] MEDS: GABAPENTIN 300 MG CAPSULE PO SCH ×2 (09:52→21:43)
[2020-05-09] MEDS: APIXABAN 5 MG TABLET PO SCH ×2 (09:52→21:44)
[2020-05-09] MEDS: DOCUSATE SODIUM 100 MG CAPSULE (FP) PO SCH ×2 (09:52→21:43)
[2020-05-09 10:38] LABS: ALBUMIN 1.9 g/dl (3.4-5.0); BLOOD UREA NITROGEN 18.4 mg/dL (7-18); CALCIUM 8.7 mg/dL (8.5-10.1)
[2020-05-09 10:42] LABS: CREATININE 0.7 mg/dL (0.55-1.3)
[2020-05-09 10:43] LABS: BILIRUBIN,TOTAL 0.5 mg/dL (0.2-1); TOT PROT 6.8 g/dl (6.4-8.2)
[2020-05-09] MEDS ORDERED: oxyCODONE HCL 5 MG TABLET PO PRN (13:26)
[2020-05-09] MEDS: SENNOSIDES 8.6MG TABLET (FP) PO SCH (21:43)
[2020-05-10] MEDS: oxyCODONE HCL 5 MG TABLET PO PRN ×5 (01:30→21:39)
[2020-05-10] MEDS: MAG HYDROX/ALH/SMC/DPHA/LIDO 240 ML MOUTHWASH MM SCH ×6 (01:30→23:15)
[2020-05-10] MEDS: INSULIN SLIDING SCALE (NOVOLOG) 1 VIAL SQ SCH ×4 (06:10→21:38)
[2020-05-10 09:07] LABS: BASO % 0.6 % (0-2.0); EOS % 1.8 % (0-4.5); HEMATOCRIT 28.5 % (35.4-49); HEMOGLOBIN 9.8 GM/dL (11.7-16.9); LYMPH % 13.8 % (8-40); MCH 30.1 pg (25.7-33.7); MCHC 34.4 g/dl (32.0-35.9); MEAN CELL VOLUME 87.5 fl (80-96); MEAN PLT VOLUME 8.3 fl (7.5-11.1); MONO % 8.1 % (3.8-10.2); NEUT % 75.7 % (42.8-82.8); PLATELET COUNT 678 K/MM3 (134-434); RBC 3.26 M/mm3 (4.00-5.60); RDW 13.6 % (11.9-15.9); WHITE BLOOD COUNT 12.8 K/mm3 (4.0-10.0)
[2020-05-10 09:29] LABS: POTASSIUM 5.1 mmol/L (3.5-5.1)
[2020-05-10 09:32] LABS: BLOOD UREA NITROGEN 19.1 mg/dL (7-18)
[2020-05-10 09:35] LABS: CREATININE 0.8 mg/dL (0.55-1.3)
[2020-05-10] MEDS: ASPIRIN COATED 81 MG TABLET.EC PO SCH (09:39)
[2020-05-10] MEDS: APIXABAN 5 MG TABLET PO SCH ×2 (09:39→21:40)
[2020-05-10] MEDS: GABAPENTIN 300 MG CAPSULE PO SCH ×2 (09:40→21:40)
[2020-05-10] MEDS: DOCUSATE SODIUM 100 MG CAPSULE (FP) PO SCH ×2 (09:40→21:40)
[2020-05-10] MEDS: ACETAMINOPHEN 325 MG TABLET (FP) PO PRN ×2 (11:44→23:14)
[2020-05-10] MEDS: POLYETHYLENE GLYCOL 3350 119 GM BTL PO SCH (11:46)
[2020-05-10] MEDS ORDERED: INSULIN (NOVOLOG) ASPART 100 UNITS/ML 10ML VIAL ONE (21:34)
[2020-05-10] MEDS: SENNOSIDES 8.6MG TABLET (FP) PO SCH (21:40)
[2020-05-11] MEDS: oxyCODONE HCL 5 MG TABLET PO PRN ×5 (02:17→21:13)
[2020-05-11] MEDS: INSULIN SLIDING SCALE (NOVOLOG) 1 VIAL SQ SCH ×4 (06:40→21:19)
[2020-05-11] MEDS: MAG HYDROX/ALH/SMC/DPHA/LIDO 240 ML MOUTHWASH MM SCH ×3 (06:43→17:17)
[2020-05-11 08:21] LABS: BASO % 0.4 % (0-2.0); EOS % 2.5 % (0-4.5); HEMATOCRIT 27.7 % (35.4-49); HEMOGLOBIN 9.5 GM/dL (11.7-16.9); LYMPH % 14.4 % (8-40); MCH 29.8 pg (25.7-33.7); MCHC 34.2 g/dl (32.0-35.9); MEAN CELL VOLUME 86.9 fl (80-96); NEUT % 74.7 % (42.8-82.8); PLATELET COUNT 683 K/MM3 (134-434); RBC 3.19 M/mm3 (4.00-5.60); RDW 13.8 % (11.9-15.9)
[2020-05-11 08:58] LABS: POTASSIUM 5.1 mmol/L (3.5-5.1)
[2020-05-11 09:03] LABS: CALCIUM 8.9 mg/dL (8.5-10.1)
[2020-05-11 09:04] LABS: ALBUMIN 1.8 g/dl (3.4-5.0); BLOOD UREA NITROGEN 17.3 mg/dL (7-18)
[2020-05-11 09:07] LABS: CREATININE 0.8 mg/dL (0.55-1.3); PHOSPHOROUS 4.1 mg/dL (2.5-4.9)
[2020-05-11 09:09] LABS: BILIRUBIN,TOTAL 0.8 mg/dL (0.2-1); TOT PROT 6.7 g/dl (6.4-8.2)
[2020-05-11] MEDS: APIXABAN 5 MG TABLET PO SCH ×2 (10:47→21:14)
[2020-05-11] MEDS: ASPIRIN COATED 81 MG TABLET.EC PO SCH (10:47)
[2020-05-11] MEDS: GABAPENTIN 300 MG CAPSULE PO SCH ×2 (10:47→21:13)
[2020-05-11] MEDS: DOCUSATE SODIUM 100 MG CAPSULE (FP) PO SCH ×2 (10:47→21:12)
[2020-05-11] MEDS: POLYETHYLENE GLYCOL 3350 119 GM BTL PO SCH (10:48)
[2020-05-11] MEDS: ACETAMINOPHEN 325 MG TABLET (FP) PO PRN (20:24)
[2020-05-11] MEDS: SENNOSIDES 8.6MG TABLET (FP) PO SCH (21:14)
[2020-05-11 22:12] LABS: EPI CELLS 9 /uL (0-25.1); HYALINE CASTS 3 /uL (0-3.1); URINE APPEARANCE CLEAR; URINE BACTERIA 43 /uL (0-1359); URINE BILIRUBIN NEGATIVE (NEGATIVE); URINE COLOR YELLOW; URINE GLUCOSE (UA) 3+ (NEGATIVE); URINE KETONE NEGATIVE (NEGATIVE); URINE LEUK ESTERASE NEGATIVE (NEGATIVE); URINE NITRITE NEGATIVE (NEGATIVE); URINE PROTEIN 3+ (NEGATIVE); URINE RBC 53 /uL (0-23.9); URINE UROBILINOGEN 0.2 mg/dL (0.2-1.0); URINE WBC 8 /uL (0-25.8)
[2020-05-12] MEDS: MAG HYDROX/ALH/SMC/DPHA/LIDO 240 ML MOUTHWASH MM SCH ×5 (01:00→17:08)
[2020-05-12] MEDS: oxyCODONE HCL 5 MG TABLET PO PRN ×5 (02:58→21:07)
[2020-05-12] MEDS: INSULIN SLIDING SCALE (NOVOLOG) 1 VIAL SQ SCH ×4 (06:25→21:09)
[2020-05-12] MEDS: DOCUSATE SODIUM 100 MG CAPSULE (FP) PO SCH ×2 (09:32→21:07)
[2020-05-12] MEDS: ASPIRIN COATED 81 MG TABLET.EC PO SCH (09:32)
[2020-05-12] MEDS: APIXABAN 5 MG TABLET PO SCH ×2 (09:32→21:07)
[2020-05-12] MEDS: POLYETHYLENE GLYCOL 3350 119 GM BTL PO SCH (09:32)
[2020-05-12] MEDS: GABAPENTIN 300 MG CAPSULE PO SCH ×2 (09:32→21:07)
[2020-05-12 10:14] LABS: EOS % 1.5 % (0-4.5); HEMATOCRIT 26.6 % (35.4-49); LYMPH % 14.3 % (8-40); MCH 29.6 pg (25.7-33.7); MCHC 33.8 g/dl (32.0-35.9); MEAN CELL VOLUME 87.5 fl (80-96); MEAN PLT VOLUME 8.4 fl (7.5-11.1); NEUT % 76.2 % (42.8-82.8); PLATELET COUNT 763 K/MM3 (134-434); RBC 3.04 M/mm3 (4.00-5.60); RDW 13.8 % (11.9-15.9); WHITE BLOOD COUNT 12.6 K/mm3 (4.0-10.0)
[2020-05-12 10:35] LABS: POTASSIUM 5.1 mmol/L (3.5-5.1)
[2020-05-12 10:39] LABS: ALBUMIN 1.8 g/dl (3.4-5.0); BLOOD UREA NITROGEN 16.5 mg/dL (7-18); CALCIUM 8.4 mg/dL (8.5-10.1); MAGNESIUM 2.1 mg/dL (1.8-2.4)
[2020-05-12 10:43] LABS: CREATININE 0.6 mg/dL (0.55-1.3); TOT PROT 6.9 g/dl (6.4-8.2)
[2020-05-12 10:53] LABS: BILIRUBIN,TOTAL 0.3 mg/dL (0.2-1)
[2020-05-12] MEDS ORDERED: INSULIN (NOVOLOG) ASPART 100 UNITS/ML 10ML VIAL ONE ×2 (17:01→20:50)
[2020-05-12 17:57] VITALS: BMI 20.7
[2020-05-12] MEDS: SENNOSIDES 8.6MG TABLET (FP) PO SCH (21:07)
[2020-05-13] MEDS: MAG HYDROX/ALH/SMC/DPHA/LIDO 240 ML MOUTHWASH MM SCH ×4 (00:36→18:02)
[2020-05-13] MEDS: oxyCODONE HCL 5 MG TABLET PO PRN ×3 (02:30→10:38)
[2020-05-13] MEDS ORDERED: PT OWN MED DRAWER 7, Y5N ONE (05:21)
[2020-05-13] MEDS: INSULIN SLIDING SCALE (NOVOLOG) 1 VIAL SQ SCH ×4 (06:24→22:24)
[2020-05-13 09:11] LABS: BASO % 1.3 % (0-2.0); EOS % 1.9 % (0-4.5); HEMATOCRIT 25.8 % (35.4-49); HEMOGLOBIN 8.8 GM/dL (11.7-16.9); LYMPH % 16.8 % (8-40); MCH 29.6 pg (25.7-33.7); MCHC 34.1 g/dl (32.0-35.9); MEAN CELL VOLUME 86.7 fl (80-96); MEAN PLT VOLUME 8.2 fl (7.5-11.1); MONO % 7.6 % (3.8-10.2); NEUT % 72.4 % (42.8-82.8); PLATELET COUNT 740 K/MM3 (134-434); RBC 2.97 M/mm3 (4.00-5.60); RDW 13.7 % (11.9-15.9); WHITE BLOOD COUNT 11.4 K/mm3 (4.0-10.0)
[2020-05-13 09:22] LABS: POTASSIUM 5.4 mmol/L (3.5-5.1)
[2020-05-13] MEDS: GABAPENTIN 300 MG CAPSULE PO SCH ×2 (09:23→22:19)
[2020-05-13] MEDS: ASPIRIN COATED 81 MG TABLET.EC PO SCH (09:23)
[2020-05-13] MEDS: APIXABAN 5 MG TABLET PO SCH (09:23)
[2020-05-13] MEDS: DOCUSATE SODIUM 100 MG CAPSULE (FP) PO SCH ×2 (09:23→22:19)
[2020-05-13 09:43] LABS: CREATININE 0.7 mg/dL (0.55-1.3)
[2020-05-13 09:44] LABS: ALBUMIN 1.8 g/dl (3.4-5.0); BILIRUBIN,TOTAL 0.4 mg/dL (0.2-1); TOT PROT 6.7 g/dl (6.4-8.2)
[2020-05-13 09:46] LABS: CALCIUM 8.6 mg/dL (8.5-10.1)
[2020-05-13 09:47] LABS: BLOOD UREA NITROGEN 15.4 mg/dL (7-18)
[2020-05-13] MEDS: POLYETHYLENE GLYCOL 3350 119 GM BTL PO SCH (09:47)
[2020-05-13] MEDS: ACETAMINOPHEN 325 MG TABLET (FP) PO PRN (11:32)
[2020-05-13] MEDS: ENOXAPARIN NA (PORCINE) 60 MG/0.6 ML DISP.SYRIN SQ SCH (12:21)
[2020-05-13] MEDS: traMADol HCL 50 MG TABLET PO PRN ×2 (14:15→22:29)
[2020-05-13] MEDS ORDERED: INSULIN (NOVOLOG) ASPART 100 UNITS/ML 10ML VIAL ONE (16:39)
[2020-05-13] MEDS ORDERED: WARFARIN NA 5 MG TABLET PO SCH (18:00)
[2020-05-13] MEDS: SENNOSIDES 8.6MG TABLET (FP) PO SCH (22:19)
[2020-05-14] MEDS: MAG HYDROX/ALH/SMC/DPHA/LIDO 240 ML MOUTHWASH MM SCH ×4 (00:35→17:58)
[2020-05-14] MEDS: ENOXAPARIN NA (PORCINE) 60 MG/0.6 ML DISP.SYRIN SQ SCH ×2 (00:35→12:04)
[2020-05-14] MEDS: ACETAMINOPHEN 325 MG TABLET (FP) PO PRN (01:44)
[2020-05-14] MEDS: traMADol HCL 50 MG TABLET PO PRN (06:00)
[2020-05-14] MEDS: INSULIN SLIDING SCALE (NOVOLOG) 1 VIAL SQ SCH ×4 (06:10→21:57)
[2020-05-14 08:56] LABS: EOS % 3.2 % (0-4.5); HEMATOCRIT 24.7 % (35.4-49); HEMOGLOBIN 8.5 GM/dL (11.7-16.9); LYMPH % 16.4 % (8-40); MCH 29.9 pg (25.7-33.7); MCHC 34.3 g/dl (32.0-35.9); MEAN CELL VOLUME 87.1 fl (80-96); MEAN PLT VOLUME 8.2 fl (7.5-11.1); MONO % 8.5 % (3.8-10.2); NEUT % 70.9 % (42.8-82.8); PLATELET COUNT 728 K/MM3 (134-434); RBC 2.84 M/mm3 (4.00-5.60); RDW 13.5 % (11.9-15.9); WHITE BLOOD COUNT 10.5 K/mm3 (4.0-10.0)
[2020-05-14 09:06] LABS: INR 1.29 (0.83-1.09); PROTHROMBIN TIME (PATIENT) 15.5 SEC (9.7-13.0)
[2020-05-14 09:22] LABS: POTASSIUM 4.5 mmol/L (3.5-5.1)
[2020-05-14 09:30] LABS: ALBUMIN 1.6 g/dl (3.4-5.0); BLOOD UREA NITROGEN 11.3 mg/dL (7-18); CALCIUM 8.5 mg/dL (8.5-10.1)
[2020-05-14 09:32] LABS: PHOSPHOROUS 3.8 mg/dL (2.5-4.9)
[2020-05-14 09:34] LABS: BILIRUBIN,TOTAL 0.4 mg/dL (0.2-1); CREATININE 0.6 mg/dL (0.55-1.3); TOT PROT 6.4 g/dl (6.4-8.2)
[2020-05-14] MEDS: GABAPENTIN 300 MG CAPSULE PO SCH ×2 (10:08→21:51)
[2020-05-14] MEDS: ASPIRIN COATED 81 MG TABLET.EC PO SCH (10:08)
[2020-05-14] MEDS: DOCUSATE SODIUM 100 MG CAPSULE (FP) PO SCH ×2 (10:08→21:51)
[2020-05-14] MEDS: POLYETHYLENE GLYCOL 3350 119 GM BTL PO SCH (10:12)
[2020-05-14] MEDS: oxyCODONE HCL 5 MG TABLET PO PRN ×3 (10:39→21:51)
[2020-05-14] MEDS ORDERED: WARFARIN NA 5 MG TABLET PO ONE (18:00)
[2020-05-14] MEDS ORDERED: WARFARIN PROTOCOL PO SCH (18:00)
[2020-05-14] MEDS: SENNOSIDES 8.6MG TABLET (FP) PO SCH (21:52)
[2020-05-15] MEDS: ENOXAPARIN NA (PORCINE) 60 MG/0.6 ML DISP.SYRIN SQ SCH ×2 (01:35→12:42)
[2020-05-15] MEDS: oxyCODONE HCL 5 MG TABLET PO PRN ×5 (01:54→20:05)
[2020-05-15] MEDS: MAG HYDROX/ALH/SMC/DPHA/LIDO 240 ML MOUTHWASH MM SCH ×4 (06:05→18:52)
[2020-05-15] MEDS: INSULIN SLIDING SCALE (NOVOLOG) 1 VIAL SQ SCH ×4 (06:06→23:07)
[2020-05-15 09:23] LABS: INR 1.29 (0.83-1.09); PROTHROMBIN TIME (PATIENT) 15.8 SEC (9.7-13.0)
[2020-05-15 09:33] LABS: EOS % 2.2 % (0-4.5); HEMATOCRIT 25.5 % (35.4-49); HEMOGLOBIN 8.9 GM/dL (11.7-16.9); LYMPH % 17.2 % (8-40); MCH 30.2 pg (25.7-33.7); MCHC 34.7 g/dl (32.0-35.9); MEAN CELL VOLUME 86.8 fl (80-96); NEUT % 72.6 % (42.8-82.8); PLATELET COUNT 767 K/MM3 (134-434); RBC 2.94 M/mm3 (4.00-5.60); RDW 13.7 % (11.9-15.9); WHITE BLOOD COUNT 9.2 K/mm3 (4.0-10.0)
[2020-05-15] MEDS: GABAPENTIN 300 MG CAPSULE PO SCH ×2 (09:43→21:31)
[2020-05-15] MEDS: DOCUSATE SODIUM 100 MG CAPSULE (FP) PO SCH ×2 (09:43→21:31)
[2020-05-15] MEDS: ASPIRIN COATED 81 MG TABLET.EC PO SCH (09:43)
[2020-05-15] MEDS: POLYETHYLENE GLYCOL 3350 119 GM BTL PO SCH (09:46)
[2020-05-15 09:47] LABS: POTASSIUM 4.9 mmol/L (3.5-5.1)
[2020-05-15 10:24] LABS: CALCIUM 8.6 mg/dL (8.5-10.1)
[2020-05-15 10:26] LABS: BLOOD UREA NITROGEN 9.9 mg/dL (7-18)
[2020-05-15 10:28] LABS: CREATININE 0.6 mg/dL (0.55-1.3)
[2020-05-15] MEDS: ACETAMINOPHEN 325 MG TABLET (FP) PO PRN (10:29)
[2020-05-15] MEDS ORDERED: INSULIN (NOVOLOG) ASPART 100 UNITS/ML 10ML VIAL ONE ×2 (11:04→21:58)
[2020-05-15] MEDS ORDERED: WARFARIN NA 5 MG TABLET PO ONE ×2 (13:00→22:33)
[2020-05-15] MEDS: LIDOCAINE 5% TOPICAL PATCH TP SCH (13:53)
[2020-05-15] MEDS: SENNOSIDES 8.6MG TABLET (FP) PO SCH (21:30)
[2020-05-15] MEDS: LIDOCAINE PATCH REMOVAL MC SCH (23:07)
[2020-05-16] MEDS: MAG HYDROX/ALH/SMC/DPHA/LIDO 240 ML MOUTHWASH MM SCH ×4 (00:59→17:35)
[2020-05-16] MEDS: oxyCODONE HCL 5 MG TABLET PO PRN ×4 (00:59→21:38)
[2020-05-16] MEDS: ENOXAPARIN NA (PORCINE) 60 MG/0.6 ML DISP.SYRIN SQ SCH ×2 (01:00→12:21)
[2020-05-16] MEDS: INSULIN SLIDING SCALE (NOVOLOG) 1 VIAL SQ SCH ×4 (06:34→21:39)
[2020-05-16] MEDS ORDERED: INSULIN (NOVOLOG) ASPART 100 UNITS/ML 10ML VIAL ONE (07:05)
[2020-05-16 08:36] LABS: BASO % 1.3 % (0-2.0); EOS % 1.6 % (0-4.5); HEMATOCRIT 26.7 % (35.4-49); HEMOGLOBIN 9.1 GM/dL (11.7-16.9); LYMPH % 15.3 % (8-40); MCH 29.2 pg (25.7-33.7); MEAN PLT VOLUME 7.9 fl (7.5-11.1); MONO % 5.9 % (3.8-10.2); NEUT % 75.9 % (42.8-82.8); PLATELET COUNT 830 K/MM3 (134-434); RBC 3.11 M/mm3 (4.00-5.60); RDW 13.8 % (11.9-15.9); WHITE BLOOD COUNT 10.4 K/mm3 (4.0-10.0)
[2020-05-16 08:43] LABS: INR 1.61 (0.83-1.09); PROTHROMBIN TIME (PATIENT) 19.5 SEC (9.7-13.0)
[2020-05-16 09:02] LABS: POTASSIUM 4.9 mmol/L (3.5-5.1)
[2020-05-16 09:05] LABS: CALCIUM 8.8 mg/dL (8.5-10.1)
[2020-05-16 09:06] LABS: BLOOD UREA NITROGEN 13.2 mg/dL (7-18)
[2020-05-16 09:09] LABS: CREATININE 0.6 mg/dL (0.55-1.3)
[2020-05-16] MEDS: GABAPENTIN 300 MG CAPSULE PO SCH ×2 (09:30→21:38)
[2020-05-16] MEDS: DOCUSATE SODIUM 100 MG CAPSULE (FP) PO SCH ×2 (09:31→21:38)
[2020-05-16] MEDS: ACETAMINOPHEN 325 MG TABLET (FP) PO PRN (09:31)
[2020-05-16] MEDS: ASPIRIN COATED 81 MG TABLET.EC PO SCH (09:31)
[2020-05-16] MEDS: POLYETHYLENE GLYCOL 3350 119 GM BTL PO SCH ×2 (09:33→10:06)
[2020-05-16] MEDS: LIDOCAINE 5% TOPICAL PATCH TP SCH (09:34)
[2020-05-16] MEDS ORDERED: PT OWN MED DRAWER 7, Y5N ONE ×2 (12:20→17:24)
[2020-05-16] MEDS: SERTRALINE HCL 50 MG TABLET (FP) PO SCH (12:21)
[2020-05-16] MEDS: WARFARIN NA 5 MG TABLET PO SCH (17:35)
[2020-05-16] MEDS: SENNOSIDES 8.6MG TABLET (FP) PO SCH (21:38)
[2020-05-16] MEDS: LIDOCAINE PATCH REMOVAL MC SCH (21:39)
[2020-05-17] MEDS: ENOXAPARIN NA (PORCINE) 60 MG/0.6 ML DISP.SYRIN SQ SCH (00:49)
[2020-05-17] MEDS: MAG HYDROX/ALH/SMC/DPHA/LIDO 240 ML MOUTHWASH MM SCH ×4 (00:50→18:10)
[2020-05-17] MEDS: oxyCODONE HCL 5 MG TABLET PO PRN (03:36)
[2020-05-17] MEDS: INSULIN SLIDING SCALE (NOVOLOG) 1 VIAL SQ SCH ×4 (06:20→21:31)
[2020-05-17 08:35] LABS: INR 2.38 (0.83-1.09); PROTHROMBIN TIME (PATIENT) 28.6 SEC (9.7-13.0)
[2020-05-17 08:36] LABS: BASO % 0.8 % (0-2.0); EOS % 0.5 % (0-4.5); HEMATOCRIT 26.7 % (35.4-49); HEMOGLOBIN 9.2 GM/dL (11.7-16.9); LYMPH % 15.1 % (8-40); MCH 29.5 pg (25.7-33.7); MCHC 34.2 g/dl (32.0-35.9); MEAN CELL VOLUME 86.3 fl (80-96); MONO % 5.9 % (3.8-10.2); NEUT % 77.7 % (42.8-82.8); PLATELET COUNT 856 K/MM3 (134-434); RDW 13.8 % (11.9-15.9); WHITE BLOOD COUNT 11.1 K/mm3 (4.0-10.0)
[2020-05-17 08:59] LABS: POTASSIUM 4.4 mmol/L (3.5-5.1)
[2020-05-17 09:11] LABS: BLOOD UREA NITROGEN 13.7 mg/dL (7-18); CALCIUM 8.9 mg/dL (8.5-10.1)
[2020-05-17 09:15] LABS: CREATININE 0.6 mg/dL (0.55-1.3)
[2020-05-17] MEDS: POLYETHYLENE GLYCOL 3350 119 GM BTL PO SCH (09:26)
[2020-05-17] MEDS: ASPIRIN COATED 81 MG TABLET.EC PO SCH (09:26)
[2020-05-17] MEDS: SERTRALINE HCL 50 MG TABLET (FP) PO SCH (09:26)
[2020-05-17] MEDS: DOCUSATE SODIUM 100 MG CAPSULE (FP) PO SCH ×2 (09:26→21:30)
[2020-05-17] MEDS: GABAPENTIN 300 MG CAPSULE PO SCH ×2 (09:26→21:30)
[2020-05-17] MEDS: LIDOCAINE 5% TOPICAL PATCH TP SCH (09:27)
[2020-05-17] MEDS ORDERED: SODIUM PHOSPHATE/NA BIPHOS 133 ML ENEMA PR ONE (09:50)
[2020-05-17] MEDS ORDERED: MAGNESIUM CITRATE 300 ML BOTTLE PO ONE (09:50)
[2020-05-17] MEDS ORDERED: INSULIN (NOVOLOG) ASPART 100 UNITS/ML 10ML VIAL ONE ×2 (11:33→21:25)
[2020-05-17] MEDS ORDERED: Methylnaltrexone Bromide 12 MG/0.6 ML KIT SQ ONE (12:10)
[2020-05-17] MEDS ORDERED: PT OWN MED DRAWER 7, Y5N ONE (18:04)
[2020-05-17] MEDS: Methylnaltrexone Bromide 12 MG/0.6 ML KIT SQ ONE ×2 (18:09→19:04)
[2020-05-17] MEDS: WARFARIN NA 5 MG TABLET PO SCH (18:09)
[2020-05-17] MEDS: LIDOCAINE PATCH REMOVAL MC SCH (21:31)
[2020-05-17] MEDS: SENNOSIDES 8.6MG TABLET (FP) PO SCH (21:33)
[2020-05-18] MEDS: MAG HYDROX/ALH/SMC/DPHA/LIDO 240 ML MOUTHWASH MM SCH ×4 (00:10→17:38)
[2020-05-18] MEDS: ACETAMINOPHEN 325 MG TABLET (FP) PO PRN ×2 (06:03→10:02)
[2020-05-18] MEDS: INSULIN SLIDING SCALE (NOVOLOG) 1 VIAL SQ SCH ×3 (06:09→16:30)
[2020-05-18 09:48] LABS: BASO % 0.7 % (0-2.0); EOS % 0.4 % (0-4.5); HEMATOCRIT 27.3 % (35.4-49); HEMOGLOBIN 9.1 GM/dL (11.7-16.9); LYMPH % 11.6 % (8-40); MCH 28.6 pg (25.7-33.7); MCHC 33.2 g/dl (32.0-35.9); MEAN CELL VOLUME 86.2 fl (80-96); MEAN PLT VOLUME 8.1 fl (7.5-11.1); MONO % 5.8 % (3.8-10.2); NEUT % 81.5 % (42.8-82.8); PLATELET COUNT 942 K/MM3 (134-434); RBC 3.17 M/mm3 (4.00-5.60); RDW 13.9 % (11.9-15.9); WHITE BLOOD COUNT 12.3 K/mm3 (4.0-10.0)
[2020-05-18 09:53] LABS: INR 3.54 (0.83-1.09); PROTHROMBIN TIME (PATIENT) 41.3 SEC (9.7-13.0)
[2020-05-18] MEDS: SERTRALINE HCL 50 MG TABLET (FP) PO SCH (10:02)
[2020-05-18] MEDS: ASPIRIN COATED 81 MG TABLET.EC PO SCH (10:02)
[2020-05-18] MEDS: GABAPENTIN 300 MG CAPSULE PO SCH (10:03)
[2020-05-18] MEDS: LIDOCAINE 5% TOPICAL PATCH TP SCH (10:03)
[2020-05-18] MEDS: DOCUSATE SODIUM 100 MG CAPSULE (FP) PO SCH (10:04)
[2020-05-18] MEDS: POLYETHYLENE GLYCOL 3350 119 GM BTL PO SCH (10:09)
[2020-05-18 10:38] LABS: POTASSIUM 5.1 mmol/L (3.5-5.1)
[2020-05-18 10:41] LABS: BLOOD UREA NITROGEN 16.4 mg/dL (7-18); CALCIUM 8.9 mg/dL (8.5-10.1)
[2020-05-18 10:45] LABS: CREATININE 0.7 mg/dL (0.55-1.3)
[2020-05-18] MEDS ORDERED: INSULIN (NOVOLOG) ASPART 100 UNITS/ML 10ML VIAL ONE ×2 (11:11→16:20)
[2020-05-18 15:14] VITALS: BP 106/67; PULSE 62; TEMP 98.5
[2020-05-18] MEDS: WARFARIN NA 5 MG TABLET PO SCH (17:38)
== END 2020-05-18 20:58 | disposition home or self-care (01) | DRG 181 ==
LOC: JER 11:02 → JERBED 15:52 → J5WEST-2 22:18 → JICU 04-30 23:20 → J6S 05-06 14:56
PROVIDERS: ADMIT Internal Medicine; ATTEND Internal Medicine
PROC: 047S3ZZ Dilation of Left Posterior Tibial Artery, Percutaneous Approach (ICD-10-PCS; 2020-04-30)
PROC: 047N3DZ Dilation of Left Popliteal Artery with Intraluminal Device, Percutaneous Approach (ICD-10-PCS; 2020-04-30)
PROC: 3E03317 Introduction of Other Thrombolytic into Peripheral Vein, Percutaneous Approach (ICD-10-PCS; 2020-04-30)
PROC: B50CYZZ Plain Radiography of Left Lower Extremity Veins using Other Contrast (ICD-10-PCS; 2020-04-30)
PROC: B50CYZZ Plain Radiography of Left Lower Extremity Veins using Other Contrast (ICD-10-PCS; 2020-04-30)
PROC: 047S3ZZ Dilation of Left Posterior Tibial Artery, Percutaneous Approach (ICD-10-PCS; principal; 2020-04-30 17:30)
PROC: B50CYZZ Plain Radiography of Left Lower Extremity Veins using Other Contrast (ICD-10-PCS; 2020-05-01)
PROC: 047S34Z Dilation of Left Posterior Tibial Artery with Drug-eluting Intraluminal Device, Percutaneous Approach (ICD-10-PCS; 2020-05-01)
PROC: B40DYZZ Plain Radiography of Aorta and Bilateral Lower Extremity Arteries using Other Contrast (ICD-10-PCS; 2020-05-01)
PROC: B40DYZZ Plain Radiography of Aorta and Bilateral Lower Extremity Arteries using Other Contrast (ICD-10-PCS; 2020-05-02)
PROC: 047L3DZ Dilation of Left Femoral Artery with Intraluminal Device, Percutaneous Approach (ICD-10-PCS; 2020-05-02)
PROC: 047N3DZ Dilation of Left Popliteal Artery with Intraluminal Device, Percutaneous Approach (ICD-10-PCS; 2020-05-02)
PROC: 0Y6J0Z1 Detachment at Left Lower Leg, High, Open Approach (ICD-10-PCS; 2020-05-04)
DX: E11.52 Type 2 diabetes mellitus with diabetic peripheral angiopathy with gangrene (principal); E11.69 Type 2 diabetes mellitus with other specified complication; T82.818A Embolism due to vascular prosthetic devices, implants and grafts, initial encounter; T82.856A Stenosis of peripheral vascular stent, initial encounter; M86.9 Osteomyelitis, unspecified; D72.829 Elevated white blood cell count, unspecified; E78.5 Hyperlipidemia, unspecified; Z89.421 Acquired absence of other right toe(s); I96 Gangrene, not elsewhere classified; I82.432 Acute embolism and thrombosis of left popliteal vein; E11.65 Type 2 diabetes mellitus with hyperglycemia; I82.442 Acute embolism and thrombosis of left tibial vein; E11.40 Type 2 diabetes mellitus with diabetic neuropathy, unspecified; E27.40 Unspecified adrenocortical insufficiency; R50.9 Fever, unspecified; F32.0 Major depressive disorder, single episode, mild; R41.3 Other amnesia; F32.9 Major depressive disorder, single episode, unspecified; Y83.8 Other surgical procedures as the cause of abnormal reaction of the patient, or of later complication, without mention of misadventure at the time of the procedure
CPT/HCPCS: 36415; 71045-TC-FY; 71046-TC-FY; 73630-TC-LT; 76000-TC-FY; 80048; 80053; 81003; 82533; 82728; 82962; 83735; 84100; 84484; 85025; 85384; 85610; 85651; 85730; 86140; 86769; 86850; 86900; 86901; 86922; 87040; 87086; 88307-TC; 88311-TC; 93005; 93010; 93922; 93926-TC; 94660; 94760; 97116-GP; 97161-GP; 99285-25; C9803; J1644; J2997; U0003

== ENCOUNTER 2020-06-03 11:46 | Inpatient (IN) | payer OTHER ==
[2020-06-03] MEDS ORDERED: SODIUM CHLORIDE 1,000 ML IV STA (12:36)
[2020-06-03] MEDS ORDERED: ACETAMINOPHEN 500 MG TABLET (FP) PO ONE (12:36)
[2020-06-03 12:43] LABS: BASO % 0.3 % (0-2.0); EOS % 0.9 % (0-4.5); HEMATOCRIT 23.4 % (35.4-49); HEMOGLOBIN 7.7 GM/dL (11.7-16.9); LYMPH % 9.3 % (8-40); MCH 27.4 pg (25.7-33.7); MONO % 4.7 % (3.8-10.2); NEUT % 84.8 % (42.8-82.8); PLATELET COUNT 827 K/MM3 (134-434); RBC 2.82 M/mm3 (4.00-5.60); RDW 16.3 % (11.9-15.9); WHITE BLOOD COUNT 15.2 K/mm3 (4.0-10.0)
[2020-06-03 12:50] LABS: INR 2.32 (0.83-1.09); PROTHROMBIN TIME (PATIENT) 27.9 SEC (9.7-13.0)
[2020-06-03] MEDS ORDERED: ACETAMINOPHEN 325 MG TABLET (FP) ONE (13:00)
[2020-06-03 13:13] LABS: ALBUMIN 1.3 g/dl (3.4-5.0); BLOOD UREA NITROGEN 23.9 mg/dL (7-18)
[2020-06-03 13:14] LABS: MAGNESIUM 2.3 mg/dL (1.8-2.4)
[2020-06-03 13:16] LABS: CREATININE 0.9 mg/dL (0.55-1.3)
[2020-06-03 13:17] LABS: BILIRUBIN,TOTAL 0.2 mg/dL (0.2-1); TOT PROT 6.4 g/dl (6.4-8.2)
[2020-06-03 13:46] LABS: EPI CELLS 9 /uL (0-25.1); HYALINE CASTS 3 /uL (0-3.1); PH,URINE 5.5 (5.0-8.0); URINE APPEARANCE CLEAR; URINE BACTERIA 65 /uL (0-1359); URINE BILIRUBIN NEGATIVE (NEGATIVE); URINE COLOR YELLOW; URINE GLUCOSE (UA) TRACE (NEGATIVE); URINE KETONE NEGATIVE (NEGATIVE); URINE LEUK ESTERASE NEGATIVE (NEGATIVE); URINE NITRITE NEGATIVE (NEGATIVE); URINE PROTEIN 2+ (NEGATIVE); URINE RBC 17 /uL (0-23.9); URINE UROBILINOGEN 0.2 mg/dL (0.2-1.0); URINE WBC 7 /uL (0-25.8)
[2020-06-03] MEDS ORDERED: ASPIRIN 81 MG CHEWABLE TABLETS PO ONE ×2 (14:10→17:34)
[2020-06-03] MEDS ORDERED: ASPIRIN 81 MG CHEWABLE TABLETS ONE (14:14)
[2020-06-03] MEDS ORDERED: VANCOMYCIN 1 GM PREMIX - 1 GM/200 ML BAG IVPB ONE (14:35)
[2020-06-03] MEDS ORDERED: PIPERACILLIN/TAZOB 4.5 GM 4.5 GM in DEXTROSE 5%-WATER 100 ML IVPB ONE (14:35)
[2020-06-03] MEDS ORDERED: SODIUM CHLORIDE 1,000 ML IV SCH (14:45)
[2020-06-03 15:55] LABS: YEAST NONE SEEN (NEGATIVE)
[2020-06-03] MEDS ORDERED: PIPERACILLIN/TAZOB 4.5 GM 4.5 GM/100 ML BAG IVPB ONE (15:59)
[2020-06-03] MEDS ORDERED: VANCOMYCIN 1 GRAM (PRE-DOCKED) 1,000 MG/250 ML BAG IVPB ONE ×2 (15:59→16:00)
[2020-06-03] MEDS ORDERED: WARFARIN NA 2 MG TABLET PO SCH (18:00)
[2020-06-03] MEDS: SODIUM CHLORIDE 1,000 ML IV SCH (18:20)
[2020-06-03] MEDS ORDERED: oxyCODONE HCL 5 MG TABLET PO PRN (18:51)
[2020-06-03] MEDS: INSULIN SLIDING SCALE (NOVOLOG) 1 VIAL SQ SCH (22:58)
[2020-06-04 00:53] VITALS: BMI 25.7
[2020-06-04] MEDS ORDERED: DEXTROSE 5%-WATER - 50 ML IVPB ONE ×3 (01:31→16:40)
[2020-06-04] MEDS ORDERED: PIPERACILLIN/TAZOBACTAM 3.375 GM VIAL IVPB ONE ×3 (01:31→16:40)
[2020-06-04] MEDS: PIPERACILLIN/TAZOB 3.375 GM 3.375 GM in DEXTROSE 5%-WATER - 50 ML IVPB SCH ×3 (01:42→17:12)
[2020-06-04] MEDS ORDERED: oxyCODONE HCL 5 MG TABLET PO ONE (04:00)
[2020-06-04] MEDS ORDERED: ACETAMINOPHEN 325 MG TABLET (FP) PO ONE ×2 (06:30→18:52)
[2020-06-04] MEDS: INSULIN SLIDING SCALE (NOVOLOG) 1 VIAL SQ SCH ×3 (06:51→17:12)
[2020-06-04 07:22] LABS: BASO % 0.8 % (0-2.0); EOS % 0.9 % (0-4.5); HEMATOCRIT 20.3 % (35.4-49); LYMPH % 11.8 % (8-40); MCH 27.3 pg (25.7-33.7); MCHC 32.8 g/dl (32.0-35.9); MEAN CELL VOLUME 83.3 fl (80-96); MEAN PLT VOLUME 7.8 fl (7.5-11.1); MONO % 5.9 % (3.8-10.2); NEUT % 80.6 % (42.8-82.8); PLATELET COUNT 821 K/MM3 (134-434); RBC 2.44 M/mm3 (4.00-5.60); RDW 16.1 % (11.9-15.9)
[2020-06-04 07:37] LABS: HEMOGLOBIN 6.6 GM/dL (11.7-16.9)
[2020-06-04 07:39] LABS: CALCIUM 7.5 mg/dL (8.5-10.1)
[2020-06-04 07:40] LABS: ALBUMIN 1.1 g/dl (3.4-5.0); BLOOD UREA NITROGEN 11.4 mg/dL (7-18)
[2020-06-04 07:43] LABS: CREATININE 0.6 mg/dL (0.55-1.3); PHOSPHOROUS 3.4 mg/dL (2.5-4.9)
[2020-06-04 07:45] LABS: BILIRUBIN,TOTAL 0.5 mg/dL (0.2-1); TOT PROT 5.4 g/dl (6.4-8.2)
[2020-06-04] MEDS ORDERED: PNEUMOC 13-VAL CONJ-DIP CRM/PF 0.5 ML DISP.SYRIN IM ONE (10:00)
[2020-06-04] MEDS ORDERED: PNEUMOCOCCAL 23 VACCINE 0.5 ML VIAL IM ONE (10:00)
[2020-06-04] MEDS ORDERED: VANCOMYCIN 1 GM in D5W (PRE-DOCKED) 1,000 MG/250 ML IVPB SCH ×2 (10:00→17:00)
[2020-06-04] MEDS ORDERED: ASPIRIN COATED 81 MG TABLET.EC PO SCH (10:00)
[2020-06-04 11:09] LABS: INR 3.77 (0.83-1.09); PROTHROMBIN TIME (PATIENT) 43.9 SEC (9.7-13.0)
[2020-06-04] MEDS: GABAPENTIN 300 MG CAPSULE PO SCH ×2 (14:10→21:23)
[2020-06-04] MEDS ORDERED: PHYTONADIONE 5 MG TABLET PO ONE (15:00)
[2020-06-04] MEDS ORDERED: ACETAMINOPHEN 1000 MG/100 ML VIAL (NON FORMULARY) IVPB ONE (18:48)
[2020-06-04] MEDS: SODIUM CHLORIDE 1,000 ML IV SCH (19:01)
[2020-06-04 20:38] LABS: EPI CELLS >36 /uL (0-25.1); HYALINE CASTS 1 /uL (0-3.1); URINE APPEARANCE CLOUDY; URINE BACTERIA 1020 /uL (0-1359); URINE BILIRUBIN NEGATIVE (NEGATIVE); URINE COLOR YELLOW; URINE GLUCOSE (UA) 1+ (NEGATIVE); URINE KETONE NEGATIVE (NEGATIVE); URINE LEUK ESTERASE NEGATIVE (NEGATIVE); URINE NITRITE NEGATIVE (NEGATIVE); URINE PROTEIN 3+ (NEGATIVE); URINE RBC 35 /uL (0-23.9); URINE WBC 26 /uL (0-25.8)
[2020-06-04] MEDS ORDERED: PT OWN MED DRAWER 7, Y5N ONE (20:51)
[2020-06-04] MEDS ORDERED: BETHANECHOL CHLORIDE 5 MG TABLET PO SCH (22:00)
[2020-06-04] MEDS ORDERED: CYCLOBENZAPRINE HCL 5 MG TABLET PO SCH (22:00)
[2020-06-04] MEDS ORDERED: ATORVASTATIN CA 20 MG TABLET (FP) PO SCH (22:00)
[2020-06-04 22:13] LABS: BASO % 0.8 % (0-2.0); EOS % 0.8 % (0-4.5); HEMATOCRIT 26.5 % (35.4-49); HEMOGLOBIN 8.8 GM/dL (11.7-16.9); LYMPH % 11.1 % (8-40); MCH 27.7 pg (25.7-33.7); MCHC 33.1 g/dl (32.0-35.9); MEAN CELL VOLUME 83.6 fl (80-96); MEAN PLT VOLUME 7.6 fl (7.5-11.1); MONO % 5.8 % (3.8-10.2); NEUT % 81.5 % (42.8-82.8); PLATELET COUNT 874 K/MM3 (134-434); RBC 3.17 M/mm3 (4.00-5.60); RDW 16.1 % (11.9-15.9); WHITE BLOOD COUNT 16.2 K/mm3 (4.0-10.0)
[2020-06-04 22:34] LABS: CALCIUM 7.7 mg/dL (8.5-10.1)
[2020-06-04 22:35] LABS: ALBUMIN 1.1 g/dl (3.4-5.0); BLOOD UREA NITROGEN 11.1 mg/dL (7-18)
[2020-06-04 22:38] LABS: CREATININE 0.7 mg/dL (0.55-1.3)
[2020-06-04 22:39] LABS: BILIRUBIN,TOTAL 0.2 mg/dL (0.2-1)
[2020-06-04 22:40] LABS: TOT PROT 5.5 g/dl (6.4-8.2)
[2020-06-04 23:41] LABS: URINE CRYSTALS MANY /hpf
[2020-06-05] MEDS ORDERED: PIPERACILLIN/TAZOBACTAM 3.375 GM VIAL IVPB ONE ×3 (01:41→16:54)
[2020-06-05] MEDS ORDERED: DEXTROSE 5%-WATER - 50 ML IVPB ONE ×3 (01:41→16:54)
[2020-06-05] MEDS: PIPERACILLIN/TAZOB 3.375 GM 3.375 GM in DEXTROSE 5%-WATER - 50 ML IVPB SCH ×3 (01:43→17:09)
[2020-06-05] MEDS: GABAPENTIN 300 MG CAPSULE PO SCH ×3 (06:22→21:03)
[2020-06-05] MEDS: INSULIN SLIDING SCALE (NOVOLOG) 1 VIAL SQ SCH ×3 (06:22→17:08)
[2020-06-05 08:10] LABS: BASO % 0.8 % (0-2.0); EOS % 0.4 % (0-4.5); LYMPH % 8.6 % (8-40); MCH 27.7 pg (25.7-33.7); MCHC 33.4 g/dl (32.0-35.9); MEAN CELL VOLUME 82.9 fl (80-96); MEAN PLT VOLUME 7.5 fl (7.5-11.1); MONO % 5.3 % (3.8-10.2); NEUT % 84.9 % (42.8-82.8); PLATELET COUNT 780 K/MM3 (134-434); RBC 2.89 M/mm3 (4.00-5.60); WHITE BLOOD COUNT 17.8 K/mm3 (4.0-10.0)
[2020-06-05 08:15] LABS: INR 1.91 (0.83-1.09); PROTHROMBIN TIME (PATIENT) 23.1 SEC (9.7-13.0)
[2020-06-05 08:27] LABS: CALCIUM 7.9 mg/dL (8.5-10.1)
[2020-06-05 08:28] LABS: ALBUMIN 1.1 g/dl (3.4-5.0); BLOOD UREA NITROGEN 8.3 mg/dL (7-18); MAGNESIUM 1.8 mg/dL (1.8-2.4)
[2020-06-05 08:31] LABS: CREATININE 0.6 mg/dL (0.55-1.3); PHOSPHOROUS 3.3 mg/dL (2.5-4.9)
[2020-06-05 08:32] LABS: BILIRUBIN,TOTAL 0.4 mg/dL (0.2-1); TOT PROT 5.6 g/dl (6.4-8.2)
[2020-06-05] MEDS ORDERED: FUROSEMIDE 40 MG/4 ML INJECTABLE VIAL IVPUSH ONE (09:00)
[2020-06-05] MEDS ORDERED: VANCOMYCIN 1 GRAM (PRE-DOCKED) 1,000 MG/250 ML BAG IVPB ONE (10:00)
[2020-06-05 10:22] LABS: N-TERMINAL BNP 8819.9 pg/ml (5-125)
[2020-06-05] MEDS ORDERED: BUPIVACAINE HCL 50 ML ONE (12:42)
[2020-06-05] MEDS ORDERED: LIDOCAINE HCL 1%, 10 MG/ML (20ML VIAL) ONE (12:42)
[2020-06-05] MEDS ORDERED: EPHEDRINE SULFATE/0.9% NACL/PF 50 MG/10 ML SYRINGE NR ONE (13:09)
[2020-06-05] MEDS ORDERED: PROPOFOL 20 ML ONE (13:09)
[2020-06-05] MEDS ORDERED: SUCCINYLCHOLINE CHLORIDE 200 MG/10 ML SYRINGE ONE (13:12)
[2020-06-05] MEDS ORDERED: oxyCODONE HCL 5 MG TABLET PO PRN ×3 (13:53→14:55)
[2020-06-05] MEDS ORDERED: ONDANSETRON 4 MG/2 ML VIAL IVPUSH PRN ×2 (13:53→14:55)
[2020-06-05] MEDS ORDERED: PROMETHAZINE HCL 25 MG/1 ML VIAL IVPUSH PRN ×2 (13:53→14:55)
[2020-06-05] MEDS ORDERED: MAGNESIUM SULF 50% (8.12 MEQ/2 ML-1 GM VIAL) IVPB ONE ×2 (14:23→14:55)
[2020-06-05] MEDS ORDERED: ACETAMINOPHEN 325 MG TABLET (FP) PO ONE (14:55)
[2020-06-06] MEDS ORDERED: PIPERACILLIN/TAZOBACTAM 3.375 GM VIAL IVPB ONE ×3 (01:06→17:52)
[2020-06-06] MEDS ORDERED: DEXTROSE 5%-WATER - 50 ML IVPB ONE ×3 (01:06→17:53)
[2020-06-06] MEDS: PIPERACILLIN/TAZOB 3.375 GM 3.375 GM in DEXTROSE 5%-WATER - 50 ML IVPB SCH ×3 (01:13→18:14)
[2020-06-06] MEDS: GABAPENTIN 300 MG CAPSULE PO SCH ×3 (06:18→21:01)
[2020-06-06] MEDS: INSULIN SLIDING SCALE (NOVOLOG) 1 VIAL SQ SCH ×3 (06:22→16:57)
[2020-06-06 07:14] LABS: BASO % 0.7 % (0-2.0); EOS % 0.6 % (0-4.5); HEMOGLOBIN 7.5 GM/dL (11.7-16.9); LYMPH % 13.5 % (8-40); MCH 27.3 pg (25.7-33.7); MCHC 32.5 g/dl (32.0-35.9); MEAN CELL VOLUME 83.8 fl (80-96); MONO % 5.7 % (3.8-10.2); NEUT % 79.5 % (42.8-82.8); PLATELET COUNT 700 K/MM3 (134-434); RBC 2.74 M/mm3 (4.00-5.60); RDW 16.3 % (11.9-15.9)
[2020-06-06] MEDS ORDERED: VANCOMYCIN 1 GRAM (PRE-DOCKED) 1,000 MG/250 ML BAG IVPB ONE (07:20)
[2020-06-06] MEDS ORDERED: MORPHINE SULFATE 2 MG/ML VIAL IVPUSH PRN (07:40)
[2020-06-06 08:16] LABS: BLOOD UREA NITROGEN 8.5 mg/dL (7-18)
[2020-06-06 08:17] LABS: CALCIUM 7.7 mg/dL (8.5-10.1); MAGNESIUM 1.8 mg/dL (1.8-2.4)
[2020-06-06 08:19] LABS: ALBUMIN 1.2 g/dl (3.4-5.0); CREATININE 0.6 mg/dL (0.55-1.3)
[2020-06-06 08:21] LABS: TOT PROT 5.7 g/dl (6.4-8.2)
[2020-06-06 08:22] LABS: PHOSPHOROUS 3.5 mg/dL (2.5-4.9)
[2020-06-06] MEDS ORDERED: SODIUM CHLORIDE 1,000 ML IV SCH (08:45)
[2020-06-06] MEDS ORDERED: FUROSEMIDE 40 MG/4 ML INJECTABLE VIAL IVPUSH ONE ×3 (10:00→10:30)
[2020-06-06] MEDS ORDERED: SODIUM HYPOCHLORITE 0.5% 473 ML- BULK BOTTLE TP SCH (10:00)
[2020-06-06] MEDS: CARVEDILOL 3.125 MG TABLET (FP) PO SCH ×2 (11:17→21:01)
[2020-06-06] MEDS ORDERED: MAGNESIUM SULF 50% (8.12 MEQ/2 ML-1 GM VIAL) IVPB ONE (12:31)
[2020-06-06 13:07] LABS: HEP B CORE AB, TOT Negative (Negative)
[2020-06-06] MEDS ORDERED: VANCOMYCIN/WATER BAGS 1,250 MG/250 ML BAG IVPB ONE (14:12)
[2020-06-06] MEDS ORDERED: VANCOMYCIN/WATER BAGS 1,250 MG/250 ML BAG IVPB SCH ×2 (19:30→20:00)
[2020-06-06] MEDS ORDERED: VANCOMYCIN/WATER 1,250 MG/250 ML BAG IVPB SCH ×2 (20:00)
[2020-06-06 20:55] LABS: BASO % 0.5 % (0-2.0); EOS % 0.8 % (0-4.5); HEMATOCRIT 25.6 % (35.4-49); HEMOGLOBIN 8.3 GM/dL (11.7-16.9); LYMPH % 8.8 % (8-40); MCHC 32.5 g/dl (32.0-35.9); MEAN PLT VOLUME 7.7 fl (7.5-11.1); MONO % 3.5 % (3.8-10.2); NEUT % 86.4 % (42.8-82.8); PLATELET COUNT 674 K/MM3 (134-434); RBC 3.09 M/mm3 (4.00-5.60); RDW 16.3 % (11.9-15.9); WHITE BLOOD COUNT 14.4 K/mm3 (4.0-10.0)
[2020-06-06 21:02] VITALS: PULSE 99
[2020-06-06 23:00] VITALS: BP 100/60; TEMP 100.3
[2020-06-10 00:06] LABS: PROTEIN S FREE 54 % (57-157)
[2020-06-10 08:09] LABS: DRVVT - 76.2 sec (0.0-47.0); DRVVT CONFIRM SECONDS 1.2 ratio (0.8-1.2); HEXAGONAL PHASE PHOSPHOLIPID 9 sec (0-11); dRVVT MIX 43.8 sec (0.0-40.4)
== END 2020-06-06 23:03 | disposition short-term general hospital (02) | DRG 711 ==
LOC: JER 11:46 → JERBED 17:29 → J4W 21:47
PROVIDERS: ADMIT Internal Medicine; ATTEND Internal Medicine
PROC: 30233K1 Transfusion of Nonautologous Frozen Plasma into Peripheral Vein, Percutaneous Approach (ICD-10-PCS; principal; 2020-06-04)
PROC: 30233N1 Transfusion of Nonautologous Red Blood Cells into Peripheral Vein, Percutaneous Approach (ICD-10-PCS; 2020-06-05)
PROC: 0J9P0ZZ Drainage of Left Lower Leg Subcutaneous Tissue and Fascia, Open Approach (ICD-10-PCS; 2020-06-05)
PROC: 3E10X8Z Irrigation of Skin and Mucous Membranes using Irrigating Substance (ICD-10-PCS; 2020-06-05)
DX: T81.41XA Infection following a procedure, superficial incisional surgical site, initial encounter (principal); T81.44XA Sepsis following a procedure, initial encounter; E11.51 Type 2 diabetes mellitus with diabetic peripheral angiopathy without gangrene; E78.5 Hyperlipidemia, unspecified; D72.829 Elevated white blood cell count, unspecified; N13.30 Unspecified hydronephrosis; K76.0 Fatty (change of) liver, not elsewhere classified; E87.1 Hypo-osmolality and hyponatremia; Z89.429 Acquired absence of other toe(s), unspecified side; E87.5 Hyperkalemia; R33.9 Retention of urine, unspecified; D47.3 Essential (hemorrhagic) thrombocythemia; N28.0 Ischemia and infarction of kidney; D73.5 Infarction of spleen; D64.9 Anemia, unspecified; N32.89 Other specified disorders of bladder; I25.10 Atherosclerotic heart disease of native coronary artery without angina pectoris; R61 Generalized hyperhidrosis; R74.8 Abnormal levels of other serum enzymes; I24.8 Other forms of acute ischemic heart disease; I50.31 Acute diastolic (congestive) heart failure; R50.9 Fever, unspecified; N31.9 Neuromuscular dysfunction of bladder, unspecified; I25.5 Ischemic cardiomyopathy; T87.44 Infection of amputation stump, left lower extremity; Y83.8 Other surgical procedures as the cause of abnormal reaction of the patient, or of later complication, without mention of misadventure at the time of the procedure; A41.89 Other specified sepsis; Z89.512 Acquired absence of left leg below knee
CPT/HCPCS: 36415; 36430; 36511; 71045-TC-FY; 73590-TC-LT-FY; 74177-TC; 76700-TC; 80053; 81003; 81240; 81241; 82550; 82553; 82607; 82728; 82962; 83540; 83550; 83735; 83880; 83930; 83935; 84100; 84300; 84484; 85025; 85302; 85305; 85306; 85610; 85613; 85732; 86078; 86140; 86146; 86704; 86706; 86707; 86708; 86709; 86803; 86850; 86900; 86901; 86922; 87040; 87070; 87086; 87186; 87205; 87340; 93005; 93010; 93306-TC; 94660; 94760; 99285-25; C9803; G0480; J0131; P9017; P9038; P9058; U0003